=== PATIENT | male | born 1950 ===

== ENCOUNTER → 2020-03-20 14:07 | Outpatient (BNVA) | payer MEDICARE, MEDICAID, SELFPAY | PROVIDERS: PCP Internal Medicine; Visit Provider Hospitalist | DX: J44.9 Chronic obstructive pulmonary disease, unspecified (principal); G47.33 Obstructive sleep apnea (adult) (pediatric); R09.02 Hypoxemia; D68.61 Antiphospholipid syndrome; Z99.89 Dependence on other enabling machines and devices | CPT/HCPCS: 99212 ==

== ENCOUNTER → 2020-03-30 15:08 | Outpatient (BNVA) | payer MEDICARE, MEDICAID, SELFPAY | PROVIDERS: PCP Internal Medicine; Visit Provider Hospitalist | DX: J44.9 Chronic obstructive pulmonary disease, unspecified (principal); G47.33 Obstructive sleep apnea (adult) (pediatric); D68.61 Antiphospholipid syndrome; J96.10 Chronic respiratory failure, unspecified whether with hypoxia or hypercapnia; Z99.89 Dependence on other enabling machines and devices | CPT/HCPCS: 99212 ==

== ENCOUNTER → 2020-06-02 15:20 | Outpatient (BNVA) | payer MEDICARE, MEDICAID, SELFPAY | PROVIDERS: PCP Internal Medicine; Visit Provider Hospitalist | DX: J44.9 Chronic obstructive pulmonary disease, unspecified (principal); J96.11 Chronic respiratory failure with hypoxia; D68.61 Antiphospholipid syndrome; G47.33 Obstructive sleep apnea (adult) (pediatric); Z99.89 Dependence on other enabling machines and devices; Z79.899 Other long term (current) drug therapy | CPT/HCPCS: 99212 ==

== ENCOUNTER → 2020-12-08 15:02 | Outpatient (BNVA) | payer MEDICARE, OTHER, SELFPAY | PROVIDERS: PCP Internal Medicine; Visit Provider Hospitalist | DX: J96.11 Chronic respiratory failure with hypoxia (principal); J41.0 Simple chronic bronchitis; G47.33 Obstructive sleep apnea (adult) (pediatric); D68.61 Antiphospholipid syndrome; Z99.89 Dependence on other enabling machines and devices | CPT/HCPCS: 99212 ==

== ENCOUNTER → 2021-05-20 13:30 | Outpatient (BNVA) | payer MEDICARE, MEDICAID, SELFPAY | PROVIDERS: PCP Internal Medicine; Visit Provider Hospitalist | DX: J96.11 Chronic respiratory failure with hypoxia (principal); D68.61 Antiphospholipid syndrome; G47.33 Obstructive sleep apnea (adult) (pediatric); J41.0 Simple chronic bronchitis; J01.90 Acute sinusitis, unspecified; Z99.89 Dependence on other enabling machines and devices | CPT/HCPCS: 99212 ==

== ENCOUNTER 2021-12-09 12:26 | Outpatient (REF) | payer OTHER, SELFPAY ==
--- NOTE | 2021-12-09 | PFT_ITS ---
FLOWS: FEV1 66% of predicted at 2.30 L. FVC 74% of predicted at 3.31 L. FEV1 to FVC ratio of 0.70. No bronchodilator response. LUNG VOLUMES: Total lung capacity 77% of predicted at 5.57 L. Residual volume 81% of predicted at 2.08 L. Slow vital capacity 74% of predicted at 3.19 L. Expiratory reserve volume 46% of predicted at 0.62 L. Diffusion capacity is moderately decreased. IMPRESSION: Moderate obstructive ventilatory defect with no bronchodilator response combined with moderate restrictive ventilatory defect. Decreased expiratory reserve volume suggests extrathoracic restriction. Decreased diffusion capacity suggests emphysema. MD KATIANA Aguilar/MODL / [id number]
== END 2021-12-09 12:27 | disposition home or self-care (01) ==
LOC: HO.RESP 12:26
PROVIDERS: PCP Internal Medicine; Visit Provider Hospitalist
DX: J44.9 Chronic obstructive pulmonary disease, unspecified (principal); Z79.899 Other long term (current) drug therapy; Z87.891 Personal history of nicotine dependence
CPT/HCPCS: 94060; 94727; 94729

== ENCOUNTER → 2021-12-28 14:17 | Outpatient (BNVA) | payer OTHER, SELFPAY | PROVIDERS: PCP Internal Medicine; Visit Provider Hospitalist | DX: J96.11 Chronic respiratory failure with hypoxia (principal); G47.33 Obstructive sleep apnea (adult) (pediatric); D68.61 Antiphospholipid syndrome; J41.0 Simple chronic bronchitis; J98.4 Other disorders of lung; Z99.89 Dependence on other enabling machines and devices | CPT/HCPCS: 99212 ==

== ENCOUNTER 2023-01-06 12:53 | Outpatient (AMB) | payer OTHER, SELFPAY ==
[2023-01-06 13:06] VITALS: BP 120/62; PULSE 63; O2SAT 96; BMI 36.5
--- NOTE | 2023-01-06 13:06 | MHC.OFFVIS ---
Intake Vital Signs 01/06/23 13:06 Height 5 ft 11 in Weight 262 lb BMI 36.5 BP 120/62 Blood Pressure Location Lt brachial Position Sitting Pulse 63 Pulse Source Pulse Oximeter Pulse Oximetry (%) 96 Oxygen Delivery Method Room Air Intake Visit Reasons: COPD Intake Note: pt is here for follow up and states he is feeling regular. please see Dr. Green note, they would like your opinion on his recommendation. Pt had flu and covid vaccines 12/14/22. Silver Solution Mixer Required: No Allergies fluticasone furoate [From Trelegy Ellipta] Allergy (Intermediate, Verified 01/06/23 13:39) Eye Swelling umeclidinium [From Trelegy Ellipta] Allergy (Intermediate, Verified 01/06/23 13:39) Eye Swelling vilanterol [From Trelegy Ellipta] Allergy (Intermediate, Verified 01/06/23 13:39) Eye Swelling Pravastatin Allergy (Severe, Uncoded 01/06/23 13:09) Anemia HPI HPI Comments History of Present Illness Details The patient is a 72-year-old gentleman known COPD, obstructive sleep apnea on CPAP in addition to antiphospholipid syndrome on chronic anticoagulation. Overall the patient has been doing very well he is responding well to the Anoro medication. Unfortunately, he does have a history of glaucoma but he did have laser surgery in his pressures have been stable. He seems to be tolerating the Anoro without any side effects or changes in his vision. At this point he is using the medication every other day and he understands that if he develops any visual changes he needs to stop the medication. He also should get I examinations every 6 months. If however he is concerned he can always stop the medication. At this point he rather standing medications is working for him. The CPAP therapy has been affecting beneficial. He does uses CPAP every night for more than 4 hours a night. He does get supplies directly from [employer]. He denies any issues with the mask or any supply issues. The patient is without any other complaints. 03/20/2020 the patient is here for sick visit. Apparently he has been having worsening shortness of breath. He is also said other constitutional symptoms including dizziness and headaches. He has had elevated blood pressures. He did go to [facility] with elevated blood pressure and his ongoing symptoms of shortness of breath. He also was evaluated by his primary care doctor. However, he continues to have significant shortness of breath and he became very concerned. Therefore he made an appointment with Pulmonary. 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 He states that his Coumadin levels have been okay. He has also continue on his Anoro inhaler on a daily basis. Has not gotten any benefit from using his short-acting beta agonist. In the office we did have him go for 6 minutes walk test and the patient quickly desaturated below 87%. Patient was initially placed on 2 L and then had to be be increased to 3 L with improvement of his oxygenation. At this point the patient has acute onset respiratory failure of unclear etiology. He was tested for COVID-19 while at [facility]. Would be unreasonable to check his antibodies. In regards of his CPAP therapy the therapy continues to be affecting beneficial. He continues uses for more than 4 hours a night. 03/30/2020 the patient is here for pulmonary follow-up visit. Overall he is doing better on the oxygen. His hemoglobin also has improved up to 14 which is been reassuring. The oxygen has been very helpful for him. He has been less short of breath. I did call the [employer] in order for him to have a conserving device trial hopefully can get a oyster grader tank in addition to that he has been using his CPAP at nighttime. The CPAP therapy continues to be affecting beneficial. It will be beneficial for him to have an overnight oximetry and room air to see if he needs oxygen at nighttime as well. He continues on the Coumadin is therapeutic. Again the CT scan of the chest did not demonstrate any evidence of any thromboembolic disease although he had extensive emphysema likely contributing to a lot of his symptoms. At this point we will increase his respiratory regimen by adding inhaled cortical steroid to his Anoro with hopes to maximize his respiratory capacity. He still completing a prednisone taper. 06/02/2020 the patient is here for pulmonary follow-up visit. Overall the patient has been doing a lot better. He is hemoglobin has been stable. His respiratory status also has been stable. Has been using the oxygen with very good effect. He does use it as prescribed. He has not gotten the conserving device as of yet. I will get submit the prescription to [employer], his [employer] company, in order for him to get the smaller gas oxygen today with a conserving valve noted for him to have more oxygen available to once he has had a home. Meantime his wound of his lower extremities has improved. He is using compression boots prescribed through wound care with very good effect. The patient has been using the CPAP at nighttime. The CPAP therapy has been affecting beneficial. He is does use it with room air which she is effective for him. Otherwise the patient has no other new issues. He is doing continue doing what he is doing. He has been on the Anoro. Did stop the Arnuity because was causing some redness of the eyes to therefore likely having some type of adverse reaction to it. At this point based on his exam he does not need the inhaled corticosteroid use she also reassuring. 12/08/2020 the patient is here for a pulmonary follow-up visit. Overall he continues to do very well. He continues to use the oxygen with activity with good effect. In addition to that he is using his CPAP at nighttime. The CPAP therapy has been affecting beneficial. He has been getting his supplies regularly. He continues on the Anoro. He is no longer taking inhaled steroid and does not appear to needed. He continues on the Coumadin. He does have antiphospholipid syndrome. He does have pulmonary nodules noted on his last CT scan that he had back in March 2020. He was a big smoker and quit about 3 years ago. The patient is currently scheduled to have a CT scan through the lung cancer screening program in March 2021. At this point the patient is doing well therefore will follow-up in a year's time. I which time he will have pulmonary function studies. 05/20/2021 the patient is here for a pulmonary follow-up visit. He is here with his . She is stating that he is still snoring significantly on the CPAP. He is wearing a nasal mask. She did getting him a chin strap that was not helpful. I explained to them that he needs to go back to full face mask to get the best effect. I did have an F 30 medium available and he did try it and seemed to be comfortable for him therefore he will continue using it. We will continue the current CPAP pressures. In the meantime the patient continues on Coumadin for his antiphospholipid syndrome. He has been having significant sinus congestion and postnasal drip as well as a sore throat. It is likely a component of sinusitis. I will treat him with some antibiotics to try to help his overall upper respiratory obstruction. It is likely that this obstruction is resulting worsening shortness of breath. He continues to use the oxygen. He is upset with the [employer] company because they have been delivering consistently. I will request to see if they can provide him with a filling station since he is using the small B-cylinders with a conserving device valve. 12/28/2021 the patient is here for pulmonary follow-up visit. Overall he continues to do well. He has been using his CPAP. The CPAP therapy has been affecting beneficial. He is using it every night. The current mask setting and set up is working a lot better for him. He is not using any oxygen while on the CPAP. Although, complains of nasal congestion, moderate in severity with post nasal drip. The nasal spray and allergy medicine are partially helpful. He does continue on the Coumadin. He is doing well with that. He does have a history of antiphospholipid syndrome needs to be on the Coumadin lifelong. In addition to that he is using his oxygen with activity. We did look at his pulmonary function studies in his diffusing capacity is up to 45% predicted suggesting that the patient does not need to use the oxygen when he is resting. Therefore he can always said off and then use it with activity. He is getting his oxygen now through [facility]. otherwise his pulmonary function studies demonstrate moderate COPD and mild restriction. He is walking regularly and is already lost weight at this point he is going to continue with current respiratory therapy. We have no plans of any changes at this time. Will have him follow-up in a year's time or sooner if any issues arise. 01/06/2023 the patient is here for a pulmonary follow-up visit. The patient has been nervous about a growing nodule that he has in his left lower lobe. The nodule was described as spiculated been increasing in size compared to the previous 1. Therefore he is concerned. However, the patient is already on oxygen supplementation in addition to that he has a history of thromboembolic disease with antiphospholipid syndrome. The patient has been on anticoagulation for a significant part of his life. Therefore, it is difficult to know how much she will tolerate as far as surgical resection. The patient did a have pulmonary function studies done at [facility] and I will request those results. The patient is concerned about the findings. He is also concern for any aggressive interventions. He is talking closely throughout thoracic surgeon. My recommendation is to consider a PET scan based on the fact that the nodules measuring 8 mm in size and based on his comorbidities and make give was helpful information to move forward. I have a discussion with the thoracic surgeon to see if he is agreeable to that otherwise will discuss further alternative options. [facility] Medical History (Updated 01/09/23 @ 08:14 by Vern Hammond MD) Pulmonary nodule Chronic restrictive lung disease Chronic respiratory failure Anti-phospholipid antibody syndrome Hypoxia RUFUS on CPAP COPD (chronic obstructive pulmonary disease) Social History (Reviewed 01/06/23 @ 13:13 by Isamar Rosario [facility]) Patient Tobacco Use Status: Former Tobacco user Tobacco use type: Cigarette Years Smoked: 14 years old Review of Systems Const Denies night sweats and Denies snoring ENT Denies change in voice, Denies lip swelling, Denies mouth pain, Reports nasal congestion, Denies nasal discharge, Denies sinus pressure, Denies sore throat and Denies tongue swelling Card Denies chest pain and Reports dyspnea on exertion Resp Reports cough, Reports dyspnea on exertion and Denies snoring GI Denies abdominal pain Musc Denies no additional complaints Neuro Denies Neuro-related abnormal movements Psych Denies no additional complaints Skyler/Lymph Denies easy bleeding and Denies lymphadenopathy Aller/Immun Denies lip swelling and Denies tongue swelling Physical Exam Vital Signs: Last Vital Signs Pulse 63 01/06/23 13:06 BP 120/62 01/06/23 13:06 Pulse Ox 96 01/06/23 13:06 Oxygen Delivery Method Room Air 01/06/23 13:06 BMI result Body Mass Index 36.5 Const General: alert HEENT General nose exam: Nasal discharge present Mouth: moist mucous membranes Throat: Yes posterior oropharynx abnormal ( Erythema without any thrush or exudate) Neck Neck: Yes normal visual inspection, Yes full ROM and Yes no lymphadenopathy Chest Chest palpation & inspection: normal inspection of the chest Resp Auscultation: no rales, no rhonchi, no wheezes and diminished lung sounds Cardio Rate: regular rate and tachycardic Rhythm: regular rhythm Heart sounds: S1 normal heart sound present and S2 normal heart sound present GI Palpation (GI): Soft to palpation and nontender Auscultation: normal bowel sounds General: Yes no CVA tenderness Back/Spine/Pelvis Back: no CVA tenderness Skin General skin exam: rashes and/or lesions noted Results Reviewed Results Reviewed: personally reviewed CT chest report Assessment & Plan Assessment & Plan (1) Chronic respiratory failure: Comment: Due to extensive emphysema Code(s): J96.10 - Chronic respiratory failure, unspecified whether with hypoxia or hypercapnia Qualifiers: Respiratory failure complication: hypoxia Qualified Code(s): J96.11 - Chronic respiratory failure with hypoxia (2) Anti-phospholipid antibody syndrome: Code(s): D68.61 - Antiphospholipid syndrome (3) RUFUS on CPAP: Code(s): G47.33 - Obstructive sleep apnea (adult) (pediatric); Z99.89 - Dependence on other enabling machines and devices (4) COPD (chronic obstructive pulmonary disease): Code(s): J44.9 - Chronic obstructive pulmonary disease, unspecified Qualifiers: COPD type: chronic bronchitis Chronic bronchitis type: simple Qualified Code(s): J41.0 - Simple chronic bronchitis (5) Chronic restrictive lung disease: Comment: mild Code(s): J98.4 - Other disorders of lung (6) Pulmonary nodule: Comment: 8 mm spiculated nodule, concerning Code(s): R91.1 - Solitary pulmonary nodule Plan PET scan would be helpful to address the nodule, Has a complicated medical history and high risk for surgery continue fluticasone nasal spray start Doxycycline for bronchitis continue Claritin daily Continue APAP with fullface mask, F 30 medium Continue Anoro daily Continue oxygen supplementation. He is using at 2 L pulse with activity.DME is [facility] now continue coumadin for antiphospholipid syndrome Need to review PFTs Follow-up in 6-8 weeks Orders: Orders PET CT fusion skull to thigh Today R91.1 - Solitary pulmonary nodule Medications: New beclomethasone dipropionate 80 mcg/actuation (Qvar RediHaler) 1 inh inhalation BID 30 days 10.6 grams 11RF doxycycline hyclate 100 mg PO BID 10 days 20 caps 0RF Coding Level of Care Code Est Pt Level 5 (22201) Diagnoses Chronic respiratory failure with hypoxia J96.11 Respiratory failure complication: hypoxia Anti-phospholipid antibody syndrome D68.61 RUFUS on CPAP G47.33; Z99.89 Simple chronic bronchitis J41.0 COPD type: chronic bronchitis Chronic bronchitis type: simple Chronic restrictive lung disease J98.4 Pulmonary nodule R91.1 Time Spent (min) 35
== END 2023-01-06 13:42 | disposition home or self-care (01) ==
PROVIDERS: PCP Internal Medicine; Visit Provider Hospitalist
DX: J96.11 Chronic respiratory failure with hypoxia (principal); D68.61 Antiphospholipid syndrome; G47.33 Obstructive sleep apnea (adult) (pediatric); Z99.89 Dependence on other enabling machines and devices; J41.0 Simple chronic bronchitis; J98.4 Other disorders of lung; R91.1 Solitary pulmonary nodule
CPT/HCPCS: 99214

== ENCOUNTER → 2023-01-06 12:53 | Outpatient (BNVA) | payer OTHER, SELFPAY | PROVIDERS: PCP Internal Medicine; Visit Provider Hospitalist | DX: J96.11 Chronic respiratory failure with hypoxia (principal); D68.61 Antiphospholipid syndrome; J41.0 Simple chronic bronchitis; J98.4 Other disorders of lung; R91.1 Solitary pulmonary nodule; G47.33 Obstructive sleep apnea (adult) (pediatric); Z99.89 Dependence on other enabling machines and devices | CPT/HCPCS: 99212 ==

== ENCOUNTER 2023-01-31 10:04 | Outpatient (REF) | payer OTHER, SELFPAY ==
--- NOTE | ~2023-01-31 | PE_ITS ---
EXAMINATION: Fluorine-18 FDG PET/CT Scan CLINICAL INDICATION: Initial treatment management. Recent outside CT scan of the chest done on 10/20/2022 showed interval growth of 8 mm spiculated nodule at superior segment of left lower lobe of the lung. PROCEDURE: 65 minutes following the intravenous administration of 20.3 mCi of fluorine 18 FDG, images from the base of the skull to the mid thighs were obtained using a combined PET/CT scanner with CT scan based attenuation correction. No intravenous contrast was administered. Transverse, coronal, sagittal, and volume reconstruction projections were obtained. The patient's blood glucose as determined by a finger stick, was 184 mg/dl immediately prior to injection. The radiotracer was injected intravenously through the left antecubital superficial vein, without any complications. Total CT exam dose-length product 1318.39 mGy-cm * These CT images were obtained using dose optimization techniques as appropriate, variously including the following: Automated exposure control * Adjustment of mA and/or kV according to patient size (this includes techniques or standardized protocols for targeted exams where dose is matched to indication/reason for exam; i.e. extremities or head) * Use of iterative reconstruction technique COMPARISON: Outside CT scan of the chest done on 10/20/2022. FINDINGS: SUV max REFERENCE: Blood: 4.1 (173/267). Liver: 5.6 (125/267). HEAD AND NECK: No abnormal radiotracer uptake. No large intracranial hemorrhage, acute territorial infarct or significant shift of midline structures. CHEST: Ports and Devices: None Lungs: The index subcentimeter spiculated nodule at superior segment of left lower lobe of the lung abutting the left major fissure is reidentified, shows mild tracer avidity with SUV max of 1.5 (185/267), below that of the adjacent mediastinal blood pool. Extensive emphysematous disease and presumed linear pleural parenchymal scar at the anteromedial aspect of the left upper lobe and hypoventilatory changes at both lung bases are noted. No additional suspicious lung nodule and/or mass is seen on either side. Pleura: No significant pleural effusion. Lymph Nodes: No tracer-avid mediastinal, hilar or internal mammary or axillary lymphadenopathy. Mediastinum: There is no significant pericardial effusion/thickening. Breasts/Chest Wall: No abnormal radiotracer uptake. ABDOMEN/PELVIS: Liver/Biliary System: No focal tracer-avid liver lesion. Multiple radiopaque calculi are present within the gallbladder. No evidence of any acute cholecystitis or biliary obstruction. Pancreas: Normal.No evidence of pancreatic ductal dilatation. Spleen: Nonvisualized, presumably surgically absent. Adrenal Glands: No abnormal radiotracer uptake. Kidneys: No hydronephrosis, hydroureter or renal calculi bilaterally. Bowel: There is no significant bowel dilatation to suggest obstruction. Colonic diverticulosis without any CT features of superimposed acute diverticulitis. Lymph Nodes: No tracer avid retroperitoneal, mesenteric or pelvic and/or groin lymphadenopathy. Pelvic Organs: The urinary bladder is underdistended. No evidence of any pelvic mass or free fluid or free air. MUSCULOSKELETAL: Multiple well-corticated radiopaque densities are present along the inferior aspect of the left axillary recess, may represent calcified loose bodies around the left shoulder. No suspicious focal osseous lesion. VASCULAR: Calcific atherosclerotic disease of the aorta including carotid and coronary arterial calcifications. THE SITE(S) OF MOST INTENSE FDG AVIDITY AND SUV MAX: The index subcentimeter spiculated suspicious nodule with SUV max of 1.5 at superior segment of the left lower lobe of the lung abutting the left major fissure. PET/PET CT fusion skull to thigh IMPRESSION: 1. Previously documented subcentimeter spiculated suspicious solid lung nodule seen at superior segment of the left lower lobe of the lung abutting the left major fissure shows mild tracer avidity with SUV max of 1.5. Given its small size as well as the morphology, the finding is suspicious for malignancy. 2. No additional tracer avid ipsilateral or contralateral lung nodule or tracer avid hilar or mediastinal or supraclavicular or extrathoracic metastases. 3. Likely calcified loose bodies within the inferior recess of the left shoulder and calcific atherosclerotic disease of the aorta and its branches including coronary and carotid artery calcifications.
== END 2023-01-31 10:05 | disposition home or self-care (01) ==
LOC: HO.PET 10:04
PROVIDERS: PCP Internal Medicine; Visit Provider Hospitalist
DX: Z13.89 Encounter for screening for other disorder (principal)

== ENCOUNTER 2023-02-09 10:58 | Outpatient (AMB) | payer OTHER, SELFPAY ==
--- NOTE | 2023-02-09 11:03 | A.OFFVIS_ITS ---
Intake Vital Signs 02/09/23 11:04 Height 5 ft 11 in Weight 264 lb 8.875 oz BMI 36.9 Intake Visit Reasons: petscan follow Intake Note: pt is here to discuss petscan performed on 01/31/23 Allergies fluticasone furoate [From Trelegy Ellipta] Allergy (Intermediate, Verified 02/09/23 11:05) Eye Swelling umeclidinium [From Trelegy Ellipta] Allergy (Intermediate, Verified 02/09/23 11:05) Eye Swelling vilanterol [From Trelegy Ellipta] Allergy (Intermediate, Verified 02/09/23 11:05) Eye Swelling Pravastatin Allergy (Severe, Uncoded 01/06/23 13:09) Anemia HPI HPI Comments History of Present Illness Details The patient is a 73-year-old gentleman known COPD, obstructive sleep apnea on CPAP in addition to antiphospholipid syndrome on chronic anticoagulation. Overall the patient has been doing very well he is responding well to the Anoro medication. Unfortunately, he does have a history of glaucoma but he did have laser surgery in his pressures have been stable. He seems to be tolerating the Anoro without any side effects or changes in his vision. At this point he is using the medication every other day and he understands that if he develops any visual changes he needs to stop the medication. He also should get I examinations every 6 months. If however he is concerned he can always stop the medication. At this point he rather standing medications is working for him. The CPAP therapy has been affecting beneficial. He does uses CPAP every night for more than 4 hours a night. He does get supplies directly from [employer]. He denies any issues with the mask or any supply issues. The patient is without any other complaints. 03/20/2020 the patient is here for sick visit. Apparently he has been having worsening shortness of breath. He is also said other constitutional symptoms including dizziness and headaches. He has had elevated blood pressures. He did go to [facility] with elevated blood pressure and his ongoing symptoms of shortness of breath. He also was evaluated by his primary care doctor. However, he continues to have significant shortness of breath and he became very concerned. Therefore he made an appointment with Pulmonary. 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 He states that his Coumadin levels have been okay. He has also continue on his Anoro inhaler on a daily basis. Has not gotten any benefit from using his short-acting beta agonist. In the office we did have him go for 6 minutes walk test and the patient quickly desaturated below 87%. Patient was initially placed on 2 L and then had to be be increased to 3 L with improvement of his oxygenation. At this point the patient has acute onset respiratory failure of unclear etiology. He was tested for COVID-19 while at [facility]. Would be unreasonable to check his antibodies. In regards of his CPAP therapy the therapy continues to be affecting beneficial. He continues uses for more than 4 hours a night. 05/20/2021 the patient is here for a pulmonary follow-up visit. He is here with his . She is stating that he is still snoring significantly on the CPAP. He is wearing a nasal mask. She did getting him a chin strap that was not helpful. I explained to them that he needs to go back to full face mask to get the best effect. I did have an F 30 medium available and he did try it and seemed to be comfortable for him therefore he will continue using it. We will continue the current CPAP pressures. In the meantime the patient continues on Coumadin for his antiphospholipid syndrome. He has been having significant sinus congestion and postnasal drip as well as a sore throat. It is likely a component of sinusitis. I will treat him with some antibiotics to try to help his overall upper respiratory obstruction. It is likely that this obstruction is resulting worsening shortness of breath. He continues to use the oxygen. He is upset with the [employer] because they have been delivering consistently. I will request to see if they can provide him with a filling station since he is using the small B-cylinders with a conserving device valve. 12/28/2021 the patient is here for pulmonary follow-up visit. Overall he continues to do well. He has been using his CPAP. The CPAP therapy has been affecting beneficial. He is using it every night. The current mask setting and set up is working a lot better for him. He is not using any oxygen while on the CPAP. Although, complains of nasal congestion, moderate in severity with post nasal drip. The nasal spray and allergy medicine are partially helpful. He does continue on the Coumadin. He is doing well with that. He does have a history of antiphospholipid syndrome needs to be on the Coumadin lifelong. In addition to that he is using his oxygen with activity. We did look at his pulmonary function studies in his diffusing capacity is up to 45% predicted suggesting that the patient does not need to use the oxygen when he is resting. Therefore he can always said off and then use it with activity. He is getting his oxygen now through [facility]. otherwise his pulmonary function studies demonstrate moderate COPD and mild restriction. He is walking regularly and is already lost weight at this point he is going to continue with current respiratory therapy. We have no plans of any changes at this time. Will have him follow-up in a year's time or sooner if any issues arise. 01/06/2023 the patient is here for a pul [facility] follow-up visit. The patient has been nervous about a growing nodule that he has in his left lower lobe. The nodule was described as spiculated been increasing in size compared to the previous 1. Therefore he is concerned. However, the patient is already on oxygen supplementation in addition to that he has a history of thromboembolic disease with antiphospholipid syndrome. The patient has been on anticoagulation for a significant part of his life. Therefore, it is difficult to know how much she will tolerate as far as surgical resection. The patient did a have pulmonary function studies done at [facility] and I will request those results. The patient is concerned about the findings. He is also concern for any aggressive interventions. He is talking closely throughout thoracic surgeon. My recommendation is to consider a PET scan based on the fact that the nodules measuring 8 mm in size and based on his comorbidities and make give was helpful information to move forward. I have a discussion with the thoracic surgeon to see if he is agreeable to that otherwise will discuss further alternative options. 02/09/2023 the patient is here for a pul [facility] follow-up visit. The patient overall has been feeling much better. Breathing overall is better. He did complete a course of antibiotics. He continues on his blood thinners. The patient has been using his oxygen with good effect. He has also been using the CPAP at nighttime. The CPAP therapy continues to be affecting beneficial. He does use it for more than 4 hours a night. The patient did undergo a PET scan to follow-up with the 8 mm spiculated nodular density. Although it appears that has not increased in size since his last CT scan in 6 months. Also be FDG activity is down to 1.5. We know this is a small subcentimeter pulmonary nodule sub PET scan does have his limitations although is reassuring to find the nodule to be low in metabolic activity. The patient will be following up with thoracic surgery. Likely will continue surveillance of this nodule. The patient is high risk for any surgical interventions. [facility] Medical History (Updated 01/09/23 @ 08:14 by Vern Hammond MD) Pulmonary nodule Chronic restrictive lung disease Chronic respiratory failure Anti-phospholipid antibody syndrome Hypoxia RUFUS on CPAP COPD (chronic obstructive pulmonary disease) Social History Patient Tobacco Use Status: Former Tobacco user Tobacco use type: Cigarette Years Smoked: 14 years old Review of Systems Const Denies night sweats and Denies snoring ENT Denies change in voice, Denies lip swelling, Denies mouth pain, Reports nasal congestion, Denies nasal discharge, Denies sinus pressure, Denies sore throat and Denies tongue swelling Card Denies chest pain and Reports dyspnea on exertion Resp Reports cough, Reports dyspnea on exertion and Denies snoring GI Denies abdominal pain Musc Denies no additional complaints Neuro Denies Neuro-related abnormal movements Psych Denies no additional complaints Skyler/Lymph Denies easy bleeding and Denies lymphadenopathy Aller/Immun Denies lip swelling and Denies tongue swelling Physical Exam Vital Signs: BMI result Body Mass Index 36.9 Const General: alert HEENT General nose exam: Nasal discharge present Mouth: moist mucous membranes Throat: Yes posterior oropharynx abnormal ( Erythema without any thrush or exudate) Neck Neck: Yes normal visual inspection, Yes full ROM and Yes no lymphadenopathy Chest Chest palpation & inspection: normal inspection of the chest Resp Auscultation: no rales, no rhonchi, no wheezes and diminished lung sounds Cardio Rate: regular rate and tachycardic Rhythm: regular rhythm Heart sounds: S1 normal heart sound present and S2 normal heart sound present GI Palpation (GI): Soft to palpation and nontender Auscultation: normal bowel sounds General: Yes no CVA tenderness Back/Spine/Pelvis Back: no CVA tenderness Skin General skin exam: rashes and/or lesions noted Results Reviewed Results Reviewed: [address] [address] PET Report Signed Patient: Maycol Keen MR#: [id number] : 1950 Acct:[id number] Age/Sex: 72 / M ADM Date: 01/31/23 Loc: HO.PET Attending Dr: Vern Hammond MD Ordering Physician: Vern Hammond MD Date of Service: 01/31/23 Procedure(s): PET CT fusion skull to thigh Accession Number(s): [id number] cc: KIMBER ARIAS MD; Vern Hamomnd MD~ EXAMINATION: Fluorine-18 FDG PET/CT Scan CLINICAL INDICATION: Initial treatment management. Recent outside CT scan of the chest done on 10/20/2022 showed interval growth of 8 mm spiculated nodule at superior segment of left lower lobe of the lung. PROCEDURE: 65 minutes following the intravenous administration of 20.3 mCi of fluorine 18 FDG, images from the base of the skull to the mid thighs were obtained using a combined PET/CT scanner with CT scan based attenuation correction. No intravenous contrast was administered. Transverse, coronal, sagittal, and volume reconstruction projections were obtained. The patient's blood glucose as determined by a finger stick, was 184 mg/dl immediately prior to injection. The radiotracer was injected intravenously through the left antecubital superficial vein, without any complications. Total CT exam dose-length product 1318.39 mGy-cm * These CT images were obtained using dose optimization techniques as appropriate, variously including the following: Automated exposure control * Adjustment of mA and/or kV according to patient size (this includes techniques or standardized protocols for targeted exams where dose is matched to indication/reason for exam; i.e. extremities or head) * Use of iterative reconstruction technique COMPARISON: Outside CT scan of the chest done on 10/20/2022. FINDINGS: SUV max REFERENCE: Blood: 4.1 (173/267). Liver: 5.6 (125/267). HEAD AND NECK: No abnormal radiotracer uptake. No large intracranial hemorrhage, acute territorial infarct or significant shift of midline structures. CHEST: Ports and Devices: None Lungs: The index subcentimeter spiculated nodule at superior segment of left lower lobe of the lung abutting the left major fissure is reidentified, shows mild tracer avidity with SUV max of 1.5 (185/267), below that of the adjacent mediastinal blood pool. Extensive emphysematous disease and presumed linear pleural parenchymal scar at the anteromedial aspect of the left upper lobe and hypoventilatory changes at both lung bases are noted. No additional suspicious lung nodule and/or mass is seen on either side. Pleura: No significant pleural effusion. Lymph Nodes: No tracer-avid mediastinal, hilar or internal mammary or axillary lymphadenopathy. Mediastinum: There is no significant pericardial effusion/thickening. Breasts/Chest Wall: No abnormal radiotracer uptake. ABDOMEN/PELVIS: Liver/Biliary System: No focal tracer-avid liver lesion. Multiple radiopaque calculi are present within the gallbladder. No evidence of any acute cholecystitis or biliary obstruction. Pancreas: Normal.No evidence of pancreatic ductal dilatation. Spleen: Nonvisualized, presumably surgically absent. Adrenal Glands: No abnormal radiotracer uptake. Kidneys: No hydronephrosis, hydroureter or renal calculi bilaterally. Bowel: There is no significant bowel dilatation to suggest obstruction. Colonic diverticulosis without any CT features of superimposed acute diverticulitis. Lymph Nodes: No tracer avid retroperitoneal, mesenteric or pelvic and/or groin lymphadenopathy. Pelvic Organs: The urinary bladder is underdistended. No evidence of any pelvic mass or free fluid or free air. MUSCULOSKELETAL: Multiple well-corticated radiopaque densities are present along the inferior aspect of the left axillary recess, may represent calcified loose bodies around the left shoulder. No suspicious focal osseous lesion. VASCULAR: Calcific atherosclerotic disease of the aorta including carotid and coronary arterial calcifications. THE SITE(S) OF MOST INTENSE FDG AVIDITY AND SUV MAX: The index subcentimeter spiculated suspicious nodule with SUV max of 1.5 at superior segment of the left lower lobe of the lung abutting the left major fissure. PET/PET CT fusion skull to thigh IMPRESSION: 1. Previously documented subcentimeter spiculated suspicious solid lung nodule seen at superior segment of the left lower lobe of the lung abutting the left major fissure shows mild tracer avidity with SUV max of 1.5. Given its small size as well as the morphology, the finding is suspicious for malignancy. 2. No additional tracer avid ipsilateral or contralateral lung nodule or tracer avid hilar or mediastinal or supraclavicular or extrathoracic metastases. 3. Likely calcified loose bodies within the inferior recess of the left shoulder and calcific atherosclerotic disease of the aorta and its branches including coronary and carotid artery calcifications. Dictated By: Brigitte Erickson MD Signed By: <Electronically signed by Brigitte Erickson MD in OV> 02/08/23 1432 DD/ 1245 TD/TT: Professional Skateboarder: CHRISTINA Assessment & Plan Assessment & Plan (1) Chronic respiratory failure: Comment: Due to extensive emphysema Code(s): J96.10 - Chronic respiratory failure, unspecified whether with hypoxia or hypercapnia Qualifiers: Respiratory failure complication: hypoxia Qualified Code(s): J96.11 - Chronic respiratory failure with hypoxia (2) Anti-phospholipid antibody syndrome: Code(s): D68.61 - Antiphospholipid syndrome (3) RUFUS on CPAP: Code(s): G47.33 - Obstructive sleep apnea (adult) (pediatric); Z99.89 - Dependence on other enabling machines and devices (4) COPD (chronic obstructive pulmonary disease): Code(s): J44.9 - Chronic obstructive pulmonary disease, unspecified Qualifiers: COPD type: chronic bronchitis Chronic bronchitis type: simple Qualified Code(s): J41.0 - Simple chronic bronchitis (5) Chronic restrictive lung disease: Comment: mild Code(s): J98.4 - Other disorders of lung (6) Pulmonary nodule: Comment: 8 mm spiculated nodule, concerning Code(s): R91.1 - Solitary pulmonary nodule Plan PET demonstrating only mild FDG, would recommend continued surveillance Will follow up with Thoracic surgery in 1-2 weeks continue fluticasone nasal spray continue Claritin daily Continue APAP with fullface mask, F 30 medium Continue Anoro daily Continue oxygen supplementation. He is using at 2 L pulse with activity.DME is [facility] now continue coumadin for antiphospholipid syndrome Follow-up in 6-8 months Coding Level of Care Code Est Pt Level 4 (54261) Diagnoses Chronic respiratory failure with hypoxia J96.11 Respiratory failure complication: hypoxia Anti-phospholipid antibody syndrome D68.61 RUFUS on CPAP G47.33; Z99.89 Simple chronic bronchitis J41.0 COPD type: chronic bronchitis Chronic bronchitis type: simple Chronic restrictive lung disease J98.4 Pulmonary nodule R91.1 Time Spent (min) 17
[2023-02-09 11:04] VITALS: BMI 36.9
== END 2023-02-09 11:19 | disposition home or self-care (01) ==
PROVIDERS: PCP Internal Medicine; Visit Provider Hospitalist
DX: J96.11 Chronic respiratory failure with hypoxia (principal); D68.61 Antiphospholipid syndrome; G47.33 Obstructive sleep apnea (adult) (pediatric); Z99.89 Dependence on other enabling machines and devices; J41.0 Simple chronic bronchitis; J98.4 Other disorders of lung; R91.1 Solitary pulmonary nodule
CPT/HCPCS: 99214

== ENCOUNTER → 2023-02-09 11:00 | Outpatient (BNVA) | payer OTHER, SELFPAY | PROVIDERS: PCP Internal Medicine; Visit Provider Hospitalist | DX: J41.0 Simple chronic bronchitis (principal); J96.11 Chronic respiratory failure with hypoxia; J98.4 Other disorders of lung; R91.1 Solitary pulmonary nodule; G47.33 Obstructive sleep apnea (adult) (pediatric); D68.61 Antiphospholipid syndrome; Z87.891 Personal history of nicotine dependence; Z79.01 Long term (current) use of anticoagulants; Z99.89 Dependence on other enabling machines and devices; Z99.81 Dependence on supplemental oxygen | CPT/HCPCS: 99212 ==

== ENCOUNTER 2023-09-27 11:01 | Outpatient (AMB) | payer OTHER, SELFPAY ==
--- NOTE | 2023-09-27 11:15 | MHC.OFFVIS ---
Vital Signs 09/27/23 11:18 Height 5 ft 11 in Weight 264 lb BMI 36.8 Pulse 60 Pulse Source Pulse Oximeter Pulse Oximetry (%) 96 Oxygen Delivery Method Room Air Comment 2 Liters Oxygen([facility]) Intake Visit Reasons: copd : 7 month f/u [place] [employer] Required: No Allergies fluticasone furoate [From Trelegy Ellipta] Allergy (Intermediate, Verified 09/27/23 11:20) Eye Swelling umeclidinium [From Trelegy Ellipta] Allergy (Intermediate, Verified 09/27/23 11:20) Eye Swelling vilanterol [From Trelegy Ellipta] Allergy (Intermediate, Verified 09/27/23 11:20) Eye Swelling Pravastatin Allergy (Severe, Uncoded 09/27/23 11:20) Anemia HPI Comments Details: The patient is a 73-year-old gentleman known COPD, obstructive sleep apnea on CPAP in addition to antiphospholipid syndrome on chronic anticoagulation. Overall the patient has been doing very well he is responding well to the Anoro medication. Unfortunately, he does have a history of glaucoma but he did have laser surgery in his pressures have been stable. He seems to be tolerating the Anoro without any side effects or changes in his vision. At this point he is using the medication every other day and he understands that if he develops any visual changes he needs to stop the medication. He also should get I examinations every 6 months. If however he is concerned he can always stop the medication. At this point he rather standing medications is working for him. The CPAP therapy has been affecting beneficial. He does uses CPAP every night for more than 4 hours a night. He does get supplies directly from [employer]. He denies any issues with the mask or any supply issues. The patient is without any other complaints. 03/20/2020 the patient is here for sick visit. Apparently he has been having worsening shortness of breath. He is also said other constitutional symptoms including dizziness and headaches. He has had elevated blood pressures. He did go to [facility] with elevated blood pressure and his ongoing symptoms of shortness of breath. He also was evaluated by his primary care doctor. However, he continues to have significant shortness of breath and he became very concerned. Therefore he made an appointment with Pulmonary. 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 He states that his Coumadin levels have been okay. He has also continue on his Anoro inhaler on a daily basis. Has not gotten any benefit from using his short-acting beta agonist. In the office we did have him go for 6 minutes walk test and the patient quickly desaturated below 87%. Patient was initially placed on 2 L and then had to be be increased to 3 L with improvement of his oxygenation. At this point the patient has acute onset respiratory failure of unclear etiology. He was tested for COVID-19 while at [facility]. Would be unreasonable to check his antibodies. In regards of his CPAP therapy the therapy continues to be affecting beneficial. He continues uses for more than 4 hours a night. 05/20/2021 the patient is here for a pulmonary follow-up visit. He is here with his . She is stating that he is still snoring significantly on the CPAP. He is wearing a nasal mask. She did getting him a chin strap that was not helpful. I explained to them that he needs to go back to full face mask to get the best effect. I did have an F 30 medium available and he did try it and seemed to be comfortable for him therefore he will continue using it. We will continue the current CPAP pressures. In the meantime the patient continues on Coumadin for his antiphospholipid syndrome. He has been having significant sinus congestion and postnasal drip as well as a sore throat. It is likely a component of sinusitis. I will treat him with some antibiotics to try to help his overall upper respiratory obstruction. It is likely that this obstruction is resulting worsening shortness of breath. He continues to use the oxygen. He is upset with the [employer] company because they have been delivering consistently. I will request to see if they can provide him with a filling station since he is using the small B-cylinders with a conserving device valve. 12/28/2021 the patient is here for pulmonary follow-up visit. Overall he continues to do well. He has been using his CPAP. The CPAP therapy has been affecting beneficial. He is using it every night. The current mask setting and set up is working a lot better for him. He is not using any oxygen while on the CPAP. Although, complains of nasal congestion, moderate in severity with post nasal drip. The nasal spray and allergy medicine are partially helpful. He does continue on the Coumadin. He is doing well with that. He does have a history of antiphospholipid syndrome needs to be on the Coumadin lifelong. In addition to that he is using his oxygen with activity. We did look at his pulmonary function studies in his diffusing capacity is up to 45% predicted suggesting that the patient does not need to use the oxygen when he is resting. Therefore he can always said off and then use it with activity. He is getting his oxygen now through [facility]. otherwise his pulmonary function studies demonstrate moderate COPD and mild restriction. He is walking regularly and is already lost weight at this point he is going to continue with current respiratory therapy. We have no plans of any changes at this time. Will have him follow-up in a year's time or sooner if any issues arise. 01/06/2023 the patient is here for a pulmonary follow-up visit. The patient has been nervous about a growing nodule that he has in his left lower lobe. The nodule was described as spiculated been increasing in size compared to the previous 1. Therefore he is concerned. However, the patient is already on oxygen supplementation in addition to that he has a history of thromboembolic disease with antiphospholipid syndrome. The patient has been on anticoagulation for a significant part of his life. Therefore, it is difficult to know how much she will tolerate as far as surgical resection. The patient did a have pulmonary function studies done at [facility] and I will request those results. The patient is concerned about the findings. He is also concern for any aggressive interventions. He is talking closely throughout thoracic surgeon. My recommendation is to consider a PET scan based on the fact that the nodules measuring 8 mm in size and based on his comorbidities and make give was helpful information to move forward. I have a discussion with the thoracic surgeon to see if he is agreeable to that otherwise will discuss further alternative options. 02/09/2023 the patient is here for a pulmonary follow-up visit. The patient overall has been feeling much better. Breathing overall is better. He did complete a course of antibiotics. He continues on his blood thinners. The patient has been using his oxygen with good effect. He has also been using the CPAP at nighttime. The CPAP therapy continues to be affecting beneficial. He does use it for more than 4 hours a night. The patient did undergo a PET scan to follow-up with the 8 mm spiculated nodular density. Although it appears that has not increased in size since his last CT scan in 6 months. Also be FDG activity is down to 1.5. We know this is a small subcentimeter pulmonary nodule sub PET scan does have his limitations although is reassuring to find the nodule to be low in metabolic activity. The patient will be following up with thoracic surgery. Likely will continue surveillance of this nodule. The patient is high risk for any surgical interventions. 09/27/2023 the patient is here for a pulmonary follow-up visit. The patient overall has been doing well from a respiratory status. He continues use the oxygen with good effect. The patient does have oxygen that he uses continuously throughout the day and also at nighttime. At nighttime he also uses CPAP. CPAP therapy has been affecting beneficial. He does uses CPAP more than 4 hours a night. I will make sure to send a script in order for him to continue getting supplies readily. Patient also continues on the Coumadin for his antiphospholipid syndrome. Has a high risk for developing blood clots. His followed closely by Hematology. He has underlying emphysema. Extensive and amount. Resulting the diffusion impairment in the oxygen needs. The patient also has pulmonary nodules bilaterally. The largest nodule measuring 8 mm in size in the left lower lobe close to the fissure. No clear airway going to this distribution. The nodule did not have any significant PET activity and has not significantly changed in size which is reassuring. In view of the patient is comorbidities I do not encouraged any invasive or semi-invasive diagnostic interventions. Patient should have repeat CT scan in 6-12 months. He will be following up with Interventional Pulmonary and they can discuss further their recommendations. in the meantime the patient will continue with current respiratory therapy and will continue with CPAP at nighttime in the oxygen as prescribed. [facility] Medical History (Updated 01/09/23 @ 08:14 by Vern Hammond MD) Pulmonary nodule Chronic restrictive lung disease Chronic respiratory failure Anti-phospholipid antibody syndrome Hypoxia RUFUS on CPAP COPD (chronic obstructive pulmonary disease) Social History Patient Tobacco Use Status: Former Tobacco user Tobacco use type: Cigarette Years Smoked: 14 years old Review of Systems Const Denies night sweats and Denies snoring ENT Denies change in voice, Denies lip swelling, Denies mouth pain, Reports nasal congestion, Denies nasal discharge, Denies sinus pressure, Denies sore throat and Denies tongue swelling Card Denies chest pain and Reports dyspnea on exertion Resp Reports cough, Reports dyspnea on exertion and Denies snoring GI Denies abdominal pain Musc Denies no additional complaints Neuro Denies Neuro-related abnormal movements Psych Denies no additional complaints Skyler/Lymph Denies easy bleeding and Denies lymphadenopathy Aller/Immun Denies lip swelling and Denies tongue swelling Physical Exam Vital Signs: Last Vital Signs Pulse 60 09/27/23 11:18 Pulse Ox 96 09/27/23 11:18 Oxygen Delivery Method Room Air 09/27/23 11:18 BMI result Body Mass Index 36.8 Const General: alert HEENT General nose exam: Nasal discharge present Mouth: moist mucous membranes Throat: Yes posterior oropharynx abnormal ( Erythema without any thrush or exudate) Neck Neck: Yes normal visual inspection, Yes full ROM and Yes no lymphadenopathy Chest Chest palpation & inspection: normal inspection of the chest Resp Auscultation: no rales, no rhonchi, no wheezes and diminished lung sounds Cardio Rate: regular rate and tachycardic Rhythm: regular rhythm Heart sounds: S1 normal heart sound present and S2 normal heart sound present GI Palpation (GI): Soft to palpation and nontender Auscultation: normal bowel sounds General: Yes no CVA tenderness Back/Spine/Pelvis Back: no CVA tenderness Skin General skin exam: rashes and/or lesions noted Assessment & Plan Assessment & Plan (1) Chronic respiratory failure: Comment: Due to extensive emphysema Code(s): J96.10 - Chronic respiratory failure, unspecified whether with hypoxia or hypercapnia Category: Medical Qualifiers: Respiratory failure complication: hypoxia Qualified Code(s): J96.11 - Chronic respiratory failure with hypoxia (2) Anti-phospholipid antibody syndrome: Code(s): D68.61 - Antiphospholipid syndrome Category: Medical (3) RUFUS on CPAP: Code(s): G47.33 - Obstructive sleep apnea (adult) (pediatric); Z99.89 - Dependence on other enabling machines and devices Category: Medical (4) COPD (chronic obstructive pulmonary disease): Code(s): J44.9 - Chronic obstructive pulmonary disease, unspecified Category: Medical Qualifiers: COPD type: chronic bronchitis Chronic bronchitis type: simple Qualified Code(s): J41.0 - Simple chronic bronchitis (5) Chronic restrictive lung disease: Comment: mild Code(s): J98.4 - Other disorders of lung Category: Medical (6) Pulmonary nodule: Comment: 8 mm spiculated nodule, concerning Code(s): R91.1 - Solitary pulmonary nodule Category: Medical Plan PET demonstrating only mild FDG, and recent CT chest with stable findings. He is high risk any invasive or semi invasive diagnostic interventions. I would recommend continued surveillance with a repeat CT chest in 6-12 months continue fluticasone nasal spray continue Claritin daily Continue APAP with fullface mask, F 30 medium Continue Anoro daily Continue oxygen supplementation. He is using at 2 L pulse with activity.DME is [facility] now continue coumadin for antiphospholipid syndrome Follow-up in 8-12 months Coding Level of Care Code Est Pt Level 4 (78221) Diagnoses Chronic respiratory failure with hypoxia J96.11 Respiratory failure complication: hypoxia Anti-phospholipid antibody syndrome D68.61 RUFUS on CPAP G47.33; Z99.89 Simple chronic bronchitis J41.0 COPD type: chronic bronchitis Chronic bronchitis type: simple Chronic restrictive lung disease J98.4 Pulmonary nodule R91.1 Time Spent (min) 18
[2023-09-27 11:18] VITALS: PULSE 60; O2SAT 96; BMI 36.8
== END 2023-09-27 11:52 | disposition home or self-care (01) ==
PROVIDERS: PCP Internal Medicine; Visit Provider Hospitalist
DX: J96.11 Chronic respiratory failure with hypoxia (principal); D68.61 Antiphospholipid syndrome; G47.33 Obstructive sleep apnea (adult) (pediatric); Z99.89 Dependence on other enabling machines and devices; J41.0 Simple chronic bronchitis; J98.4 Other disorders of lung; R91.1 Solitary pulmonary nodule
CPT/HCPCS: 99214

== ENCOUNTER → 2023-09-27 11:01 | Outpatient (BNVA) | payer OTHER, SELFPAY | PROVIDERS: PCP Internal Medicine; Visit Provider Hospitalist | DX: J44.9 Chronic obstructive pulmonary disease, unspecified (principal); J96.11 Chronic respiratory failure with hypoxia; D68.61 Antiphospholipid syndrome; G47.33 Obstructive sleep apnea (adult) (pediatric); J41.0 Simple chronic bronchitis; J98.4 Other disorders of lung; R91.1 Solitary pulmonary nodule; Z79.01 Long term (current) use of anticoagulants; Z99.89 Dependence on other enabling machines and devices | CPT/HCPCS: 99212 ==

== ENCOUNTER → 2023-12-12 14:42 | Outpatient (REF) | payer OTHER, SELFPAY | LOC: HO.SL 14:42 | PROVIDERS: PCP Internal Medicine; Visit Provider Hospitalist | DX: G47.33 Obstructive sleep apnea (adult) (pediatric) (principal); Z99.89 Dependence on other enabling machines and devices | CPT/HCPCS: 95806 ==

== ENCOUNTER → 2023-12-12 15:02 | Outpatient (BNV) | payer OTHER, SELFPAY | PROVIDERS: PCP Internal Medicine; Visit Provider Internal Medicine | DX: G47.33 Obstructive sleep apnea (adult) (pediatric) (principal) | CPT/HCPCS: 95806 ==

== ENCOUNTER → 2024-01-03 04:09 | Outpatient (BNV) | payer OTHER, SELFPAY | PROVIDERS: PCP Internal Medicine; Visit Provider Internal Medicine | DX: G47.33 Obstructive sleep apnea (adult) (pediatric) (principal); Z99.89 Dependence on other enabling machines and devices | CPT/HCPCS: 95811 ==

== ENCOUNTER → 2024-01-03 20:30 | Outpatient (REF) | payer OTHER, SELFPAY | LOC: HO.SL 20:30 | PROVIDERS: PCP Internal Medicine; Visit Provider Hospitalist | DX: G47.33 Obstructive sleep apnea (adult) (pediatric) (principal); Z99.89 Dependence on other enabling machines and devices | CPT/HCPCS: 95811 ==

== ENCOUNTER 2024-02-01 12:46 | Outpatient (AMB) | payer OTHER, SELFPAY ==
--- NOTE | 2024-02-01 12:54 | MHC.OFFVIS ---
Vital Signs 02/01/24 12:55 Height 5 ft 11 in Weight 250 lb 3.594 oz BMI 34.9 BP 130/64 Blood Pressure Location Lt brachial Position Sitting Pulse 66 Pulse Source Pulse Oximeter Pulse Oximetry (%) 96 Oxygen Delivery Method Nasal Cannula Oxygen Flow Rate 2 Intake Visit Reasons: copd Allergies fluticasone furoate [From Trelegy Ellipta] Allergy (Intermediate, Verified 02/01/24 12:59) Eye Swelling umeclidinium [From Trelegy Ellipta] Allergy (Intermediate, Verified 02/01/24 12:59) Eye Swelling vilanterol [From Trelegy Ellipta] Allergy (Intermediate, Verified 02/01/24 12:59) Eye Swelling Pravastatin Allergy (Severe, Uncoded 02/01/24 12:59) Anemia HPI Comments Details: The patient is a 73-year-old gentleman known COPD, obstructive sleep apnea on CPAP in addition to antiphospholipid syndrome on chronic anticoagulation. Overall the patient has been doing very well he is responding well to the Anoro medication. Unfortunately, he does have a history of glaucoma but he did have laser surgery in his pressures have been stable. He seems to be tolerating the Anoro without any side effects or changes in his vision. At this point he is using the medication every other day and he understands that if he develops any visual changes he needs to stop the medication. He also should get I examinations every 6 months. If however he is concerned he can always stop the medication. At this point he rather standing medications is working for him. The CPAP therapy has been affecting beneficial. He does uses CPAP every night for more than 4 hours a night. He does get supplies directly from [employer]. He denies any issues with the mask or any supply issues. The patient is without any other complaints. 03/20/2020 the patient is here for sick visit. Apparently he has been having worsening shortness of breath. He is also said other constitutional symptoms including dizziness and headaches. He has had elevated blood pressures. He did go to [facility] with elevated blood pressure and his ongoing symptoms of shortness of breath. He also was evaluated by his primary care doctor. However, he continues to have significant shortness of breath and he became very concerned. Therefore he made an appointment with Pulmonary. 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 He states that his Coumadin levels have been okay. He has also continue on his Anoro inhaler on a daily basis. Has not gotten any benefit from using his short-acting beta agonist. In the office we did have him go for 6 minutes walk test and the patient quickly desaturated below 87%. Patient was initially placed on 2 L and then had to be be increased to 3 L with improvement of his oxygenation. At this point the patient has acute onset respiratory failure of unclear etiology. He was tested for COVID-19 while at [facility]. Would be unreasonable to check his antibodies. In regards of his CPAP therapy the therapy continues to be affecting beneficial. He continues uses for more than 4 hours a night. 05/20/2021 the patient is here for a pulmonary follow-up visit. He is here with his . She is stating that he is still snoring significantly on the CPAP. He is wearing a nasal mask. She did getting him a chin strap that was not helpful. I explained to them that he needs to go back to full face mask to get the best effect. I did have an F 30 medium available and he did try it and seemed to be comfortable for him therefore he will continue using it. We will continue the current CPAP pressures. In the meantime the patient continues on Coumadin for his antiphospholipid syndrome. He has been having significant sinus congestion and postnasal drip as well as a sore throat. It is likely a component of sinusitis. I will treat him with some antibiotics to try to help his overall upper respiratory obstruction. It is likely that this obstruction is resulting worsening shortness of breath. He continues to use the oxygen. He is upset with the [employer] company because they have been delivering consistently. I will request to see if they can provide him with a filling station since he is using the small B-cylinders with a conserving device valve. 12/28/2021 the patient is here for pulmonary follow-up visit. Overall he continues to do well. He has been using his CPAP. The CPAP therapy has been affecting beneficial. He is using it every night. The current mask setting and set up is working a lot better for him. He is not using any oxygen while on the CPAP. Although, complains of nasal congestion, moderate in severity with post nasal drip. The nasal spray and allergy medicine are partially helpful. He does continue on the Coumadin. He is doing well with that. He does have a history of antiphospholipid syndrome needs to be on the Coumadin lifelong. In addition to that he is using his oxygen with activity. We did look at his pulmonary function studies in his diffusing capacity is up to 45% predicted suggesting that the patient does not need to use the oxygen when he is resting. Therefore he can always said off and then use it with activity. He is getting his oxygen now through [facility]. otherwise his pulmonary function studies demonstrate moderate COPD and mild restriction. He is walking regularly and is already lost weight at this point he is going to continue with current respiratory therapy. We have no plans of any changes at this time. Will have him follow-up in a year's time or sooner if any issues arise. 01/06/2023 the patient is here for a pulmonary follow-up visit. The patient has been nervous about a growing nodule that he has in his left lower lobe. The nodule was described as spiculated been increasing in size compared to the previous 1. Therefore he is concerned. However, the patient is already on oxygen supplementation in addition to that he has a history of thromboembolic disease with antiphospholipid syndrome. The patient has been on anticoagulation for a significant part of his life. Therefore, it is difficult to know how much she will tolerate as far as surgical resection. The patient did a have pulmonary function studies done at [facility] and I will request those results. The patient is concerned about the findings. He is also concern for any aggressive interventions. He is talking closely throughout thoracic surgeon. My recommendation is to consider a PET scan based on the fact that the nodules measuring 8 mm in size and based on his comorbidities and make give was helpful information to move forward. I have a discussion with the thoracic surgeon to see if he is agreeable to that otherwise will discuss further alternative options. 02/09/2023 the patient is here for a pulmonary follow-up visit. The patient overall has been feeling much better. Breathing overall is better. He did complete a course of antibiotics. He continues on his blood thinners. The patient has been using his oxygen with good effect. He has also been using the CPAP at nighttime. The CPAP therapy continues to be affecting beneficial. He does use it for more than 4 hours a night. The patient did undergo a PET scan to follow-up with the 8 mm spiculated nodular density. Although it appears that has not increased in size since his last CT scan in 6 months. Also be FDG activity is down to 1.5. We know this is a small subcentimeter pulmonary nodule sub PET scan does have his limitations although is reassuring to find the nodule to be low in metabolic activity. The patient will be following up with thoracic surgery. Likely will continue surveillance of this nodule. The patient is high risk for any surgical interventions. 09/27/2023 the patient is here for a pulmonary follow-up visit. The patient overall has been doing well from a respiratory status. He continues use the oxygen with good effect. The patient does have oxygen that he uses continuously throughout the day and also at nighttime. At nighttime he also uses CPAP. CPAP therapy has been affecting beneficial. He does uses CPAP more than 4 hours a night. I will make sure to send a script in order for him to continue getting supplies readily. Patient also continues on the Coumadin for his antiphospholipid syndrome. Has a high risk for developing blood clots. His followed closely by Hematology. He has underlying emphysema. Extensive and amount. Resulting the diffusion impairment in the oxygen needs. The patient also has pulmonary nodules bilaterally. The largest nodule measuring 8 mm in size in the left lower lobe close to the fissure. No clear airway going to this distribution. The nodule did not have any significant PET activity and has not significantly changed in size which is reassuring. In view of the patient is comorbidities I do not encouraged any invasive or semi-invasive diagnostic interventions. Patient should have repeat CT scan in 6-12 months. He will be following up with Interventional Pulmonary and they can discuss further their recommendations. in the meantime the patient will continue with current respiratory therapy and will continue with CPAP at nighttime in the oxygen as prescribed. 02/01/2024 the patient is here for a pulmonary follow-up visit. Overall he is doing okay. He is recovering from COVID-19. Seems to be doing better. The patient did undergo a sleep study. I did personally review it although was a limited study because he could not sleep well. Seems that he does need additional CPAP support so therefore we will request a replacement machine with the higher pressure at this time 12-18 cm of water. The patient does not need any oxygen with it. He does use oxygen during the daytime that is good. In the meantime will following closely the left-sided pulmonary nodule measuring about 8 mm in size. The last CT scan from 09/30/2023 that Lena demonstrating no significant changes. Therefore, we should repeat it in 6 months. He does not want any aggressive interventions at this time. Therefore will hold off on any interventional pulmonary procedures and which is continue to follow the nodule in 04/01/2024. The patient also will need to get a replacement CPAP. Will send a prescription over to his [employer] company that is been very helpful for him. The CPAP therapy has been very affecting beneficial for him. Therefore he needs to continue it will needs a replacement because machine now is noting that the motor is not working appropriately. Patient will follow-up in the end of March to follow up with his CT scan and to see how he is responding to the new CPAP. he is also having symptoms sinusitis. Will go ahead and treat that as well. Sinus pressure cough chest congestion. Lungs sound clear. [facility] Medical History (Updated 01/09/23 @ 08:14 by Vern Hammond MD) Pulmonary nodule Chronic restrictive lung disease Chronic respiratory failure Anti-phospholipid antibody syndrome Hypoxia RUFUS on CPAP COPD (chronic obstructive pulmonary disease) Social History Patient Tobacco Use Status: Former Tobacco user Tobacco use type: Cigarette Years Smoked: 14 years old Review of Systems Const Denies night sweats and Denies snoring ENT Denies change in voice, Denies lip swelling, Denies mouth pain, Reports nasal congestion, Reports nasal discharge, Reports sinus pain, Reports sinus pressure, Denies sore throat and Denies tongue swelling Card Denies chest pain and Reports dyspnea on exertion Resp Reports chest congestion, Reports cough, Reports dyspnea on exertion and Denies snoring GI Denies abdominal pain Musc Denies no additional complaints Neuro Denies Neuro-related abnormal movements Psych Denies no additional complaints Skyler/Lymph Denies easy bleeding and Denies lymphadenopathy Aller/Immun Denies lip swelling and Denies tongue swelling Physical Exam Vital Signs: Last Vital Signs Pulse 66 02/01/24 12:55 BP 130/64 02/01/24 12:55 Pulse Ox 96 02/01/24 12:55 Oxygen Delivery Method Nasal Cannula 02/01/24 12:55 Oxygen Flow Rate 2 02/01/24 12:55 BMI result Body Mass Index 34.9 Const General: alert HEENT General nose exam: Nasal discharge present Mouth: moist mucous membranes Throat: Yes posterior oropharynx abnormal ( Erythema without any thrush or exudate) Neck Neck: Yes normal visual inspection, Yes full ROM and Yes no lymphadenopathy Chest Chest palpation & inspection: normal inspection of the chest Resp Auscultation: no rales, no rhonchi, no wheezes and diminished lung sounds Cardio Rate: regular rate and tachycardic Rhythm: regular rhythm Heart sounds: S1 normal heart sound present and S2 normal heart sound present GI Palpation (GI): Soft to palpation and nontender Auscultation: normal bowel sounds General: Yes no CVA tenderness Back/Spine/Pelvis Back: no CVA tenderness Skin General skin exam: rashes and/or lesions noted Assessment & Plan Assessment & Plan (1) Chronic respiratory failure: Comment: Due to extensive emphysema Code(s): J96.10 - Chronic respiratory failure, unspecified whether with hypoxia or hypercapnia Category: Medical Qualifiers: Respiratory failure complication: hypoxia Qualified Code(s): J96.11 - Chronic respiratory failure with hypoxia (2) Anti-phospholipid antibody syndrome: Code(s): D68.61 - Antiphospholipid syndrome Category: Medical (3) RUFUS on CPAP: Code(s): G47.33 - Obstructive sleep apnea (adult) (pediatric); Z99.89 - Dependence on other enabling machines and devices Category: Medical (4) COPD (chronic obstructive pulmonary disease): Code(s): J44.9 - Chronic obstructive pulmonary disease, unspecified Category: Medical Qualifiers: COPD type: chronic bronchitis Chronic bronchitis type: simple Qualified Code(s): J41.0 - Simple chronic bronchitis (5) Chronic restrictive lung disease: Comment: mild Code(s): J98.4 - Other disorders of lung Category: Medical (6) Pulmonary nodule: Comment: 8 mm spiculated nodule, concerning Code(s): R91.1 - Solitary pulmonary nodule Category: Medical (7) Sinusitis: Code(s): J32.9 - Chronic sinusitis, unspecified Category: Medical Qualifiers: Sinusitis location: unspecified location Chronicity: subacute Qualified Code(s): J01.90 - Acute sinusitis, unspecified Plan CT chest 03/2024 continue fluticasone nasal spray continue Claritin daily Continue APAP with fullface mask, F 30 medium. Needs a replacement APAP, current APAP broken beyond repeair. Titration study recommended cpap 14cm RA Continue Anoro daily Continue oxygen supplementation. He is using at 2 L pulse with activity.DME is [facility] now continue coumadin for antiphospholipid syndrome Follow-up in 3-4 months Orders: Orders CT chest wo IV con 03/25/24 R91.1 - Solitary pulmonary nodule Medications: New doxycycline monohydrate 100 mg PO BID 28 tabs 0RF 14 days oxymetazoline 0.05% (Afrin (oxymetazoline)) 2 sprays intranasal Q12H PRN 22 mL 0RF nasal congestion 5 days Coding Level of Care Code Est Pt Level 4 (80759) Complex EM visit Add On G2211 Diagnoses Chronic respiratory failure with hypoxia J96.11 Respiratory failure complication: hypoxia Anti-phospholipid antibody syndrome D68.61 RUFUS on CPAP G47.33; Z99.89 Simple chronic bronchitis J41.0 COPD type: chronic bronchitis Chronic bronchitis type: simple Chronic restrictive lung disease J98.4 Pulmonary nodule R91.1 Subacute sinusitis, unspecified location J01.90 Sinusitis location: unspecified location Chronicity: subacute Time Spent (min) 18
[2024-02-01 12:55] VITALS: BP 130/64; PULSE 66; O2SAT 96; BMI 34.9
== END 2024-02-01 13:25 | disposition home or self-care (01) ==
PROVIDERS: PCP Internal Medicine; Visit Provider Hospitalist
DX: J96.11 Chronic respiratory failure with hypoxia (principal); D68.61 Antiphospholipid syndrome; G47.33 Obstructive sleep apnea (adult) (pediatric); Z99.89 Dependence on other enabling machines and devices; J41.0 Simple chronic bronchitis; J98.4 Other disorders of lung; R91.1 Solitary pulmonary nodule; J01.90 Acute sinusitis, unspecified
CPT/HCPCS: 99214; G2211

== ENCOUNTER → 2024-02-01 12:46 | Outpatient (BNVA) | payer OTHER, SELFPAY | PROVIDERS: PCP Internal Medicine; Visit Provider Hospitalist | DX: J96.11 Chronic respiratory failure with hypoxia (principal); J41.0 Simple chronic bronchitis; J98.4 Other disorders of lung; D68.61 Antiphospholipid syndrome; G47.33 Obstructive sleep apnea (adult) (pediatric); R91.1 Solitary pulmonary nodule; Z99.89 Dependence on other enabling machines and devices | CPT/HCPCS: 99212 ==

== ENCOUNTER 2024-04-09 13:20 | Outpatient (AMB) | payer OTHER, SELFPAY ==
--- NOTE | 2024-04-09 13:45 | A.OFFVIS_ITS ---
Vital Signs 04/09/24 13:46 Height 5 ft 11 in Weight 260 lb 2.327 oz BMI 36.3 BP 134/80 Blood Pressure Location Rt brachial Position Sitting Pulse 85 Pulse Source Pulse Oximeter Pulse Oximetry (%) 90 L Oxygen Delivery Method Nasal Cannula Oxygen Flow Rate 2 Intake Visit Reasons: COPD Allergies fluticasone furoate [From Trelegy Ellipta] Allergy (Intermediate, Verified 02/01/24 12:59) Eye Swelling umeclidinium [From Trelegy Ellipta] Allergy (Intermediate, Verified 02/01/24 12:59) Eye Swelling vilanterol [From Trelegy Ellipta] Allergy (Intermediate, Verified 02/01/24 12:59) Eye Swelling Pravastatin Allergy (Severe, Uncoded 02/01/24 12:59) Anemia HPI Comments Details: The patient is a 74-year-old gentleman known COPD, obstructive sleep apnea on CPAP in addition to antiphospholipid syndrome on chronic anticoagulation. Overall the patient has been doing very well he is responding well to the Anoro medication. Unfortunately, he does have a history of glaucoma but he did have laser surgery in his pressures have been stable. He seems to be tolerating the Anoro without any side effects or changes in his vision. At this point he is using the medication every other day and he understands that if he develops any visual changes he needs to stop the medication. He also should get I exam inations every 6 months. If however he is concerned he can always stop the medication. At this point he rather standing medications is working for him. The CPAP therapy has been affecting beneficial. He does uses CPAP every night for more than 4 hours a night. He does get supplies directly from [facility]. He denies any issues with the mask or any supply issues. The patient is without any other complaints. 03/20/2020 the patient is here for sick visit. Apparently he has been having worsening shortness of breath. He is also said other constitutional symptoms including dizziness and headaches. He has had elevated blood pressures. He did go to [facility] with elevated blood pressure and his ongoing symptoms of shortness of breath. He also was evaluated by his primary care doctor. However, he continues to have significant shortness of breath and he became very concerned. Therefore he made an appointment with Pulmonary. 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 He states that his Coumadin levels have been okay. He has also continue on his Anoro inhaler on a daily basis. Has not gotten any benefit from using his short-acting beta agonist. In the office we did have him go for 6 minutes walk test and the patient quickly desaturated below 87%. Patient was initially placed on 2 L and then had to be be increased to 3 L with improvement of his oxygenation. At this point the patient has acute onset respiratory failure of unclear etiology. He was tested for COVID-19 while at [facility]. Would be unreasonable to check his antibodies. In regards of his CPAP therapy the therapy continues to be affecting beneficial. He continues uses for more than 4 hours a night. 05/20/2021 the patient is here for a pulmonary follow-up visit. He is here with his . She is stating that he is still snoring significantly on the CPAP. He is wearing a nasal mask. She did getting him a chin strap that was not helpful. I explained to them that he needs to go back to full face mask to get the best effect. I did have an F 30 medium available and he did try it and seemed to be comfortable for him therefore he will continue using it. We will continue the current CPAP pressures. In the meantime the patient continues on Coumadin for his antiphospholipid syndrome. He has been having significant sinus congestion and postnasal drip as well as a sore throat. It is likely a component of sinusitis. I will treat him with some antibiotics to try to help his overall upper respiratory obstruction. It is likely that this obstruction is resulting worsening shortness of breath. He continues to use the oxygen. He is upset with the [employer] company because they have been delivering consistently. I will request to see if they can provide him with a filling station since he is using the small B-cylinders with a conserving device valve. 12/28/2021 the patient is here for pulmonary follow-up visit. Overall he continues to do well. He has been using his CPAP. The CPAP therapy has been affecting beneficial. He is using it every night. The current mask setting and set up is working a lot better for him. He is not using any oxygen while on the CPAP. Although, complains of nasal congestion, moderate in severity with post nasal drip. The nasal spray and allergy medicine are partially helpful. He does continue on the Coumadin. He is doing well with that. He does have a history of antiphospholipid syndrome needs to be on the Coumadin lifelong. In addition to that he is using his oxygen with activity. We did look at his pulmonary function studies in his diffusing capacity is up to 45% predicted suggesting that the patient does not need to use the oxygen when he is resting. Therefore he can always said off and then use it with activity. He is getting his oxygen now through [facility]. otherwise his pulmonary function studies demonstrate moderate COPD and mild restriction. He is walking regularly and is already lost weight at this point he is going to continue with current respiratory therapy. We have no plans of any changes at this time. Will have him follow-up in a year's time or sooner if any issues arise. 01/06/2023 the patient is here for a pulmonary follow-up visit. The patient has been nervous about a growing nodule that he has in his left lower lobe. The nodule was described as spiculated been increasing in size compared to the previous 1. Therefore he is concerned. However, the patient is already on oxygen supplementation in addition to that he has a history of thromboembolic disease with antiphospholipid syndrome. The patient has been on anticoagulation for a significant part of his life. Therefore, it is difficult to know how much she will tolerate as far as surgical resection. The patient did a have pulmonary function studies done at [facility] and I will request those results. The patient is concerned about the findings. He is also concern for any aggressive interventions. He is talking closely throughout thoracic surgeon. My recommendation is to consider a PET scan based on the fact that the nodules measuring 8 mm in size and based on his comorbidities and make give was helpful information to move forward. I have a discussion with the thoracic surgeon to see if he is agreeable to that otherwise will discuss further alternative options. 02/09/2023 the patient is here for a pulmonary follow-up visit. The patient overall has been feeling much better. Breathing overall is better. He did complete a course of antibiotics. He continues on his blood thinners. The patient has been using his oxygen with good effect. He has also been using the CPAP at nighttime. The CPAP therapy continues to be affecting beneficial. He does use it for more than 4 hours a night. The patient did undergo a PET scan to follow-up with the 8 mm spiculated nodular density. Although it appears that has not increased in size since his last CT scan in 6 months. Also be FDG activity is down to 1.5. We know this is a small subcentimeter pulmonary nodule sub PET scan does have his limitations although is reassuring to find the nodule to be low in metabolic activity. The patient will be following up with thoracic surgery. Likely will continue surveillance of this nodule. The patient is high risk for any surgical interventions. 09/27/2023 the patient is here for a pulmonary follow-up visit. The patient overall has been doing well from a respiratory status. He continues use the oxygen with good effect. The patient does have oxygen that he uses continuously throughout the day and also at nighttime. At nighttime he also uses CPAP. CPAP therapy has been affecting beneficial. He does uses CPAP more than 4 hours a night. I will make sure to send a script in order for him to continue getting supplies readily. Patient also continues on the Coumadin for his antiphospholipid syndrome. Has a high risk for developing blood clots. His followed closely by Hematology. He has underlying emphysema. Extensive and amount. Resulting the diffusion impairment in the oxygen needs. The patient also has pulmonary nodules bilaterally. The largest nodule measuring 8 mm in size in the left lower lobe close to the fissure. No clear airway going to this distribution. The nodule did not have any significant PET activity and has not significantly changed in size which is reassuring. In view of the patient is comorbidities I do not encouraged any invasive or semi-invasive diagnostic interventions. Patient should have repeat CT scan in 6-12 months. He will be following up with Interventional Pulmonary and they can discuss further their recommendations. in the meantime the patient will continue with current respiratory therapy and will continue with CPAP at nighttime in the oxygen as prescribed. 02/01/2024 the patient is here for a pulmonary follow-up visit. Overall he is doing okay. He is recovering from COVID-19. Seems to be doing better. The patient did undergo a sleep study. I did personally review it although was a limited study because he could not sleep well. Seems that he does need additional CPAP support so therefore we will request a replacement machine with the higher pressure at this time 12-18 cm of water. The patient does not need any oxygen with it. He does use oxygen during the daytime that is good. In the meantime will following closely the left-sided pulmonary nodule measuring about 8 mm in size. The last CT scan from 09/30/2023 that Lena demonstrating no significant changes. Therefore, we should repeat it in 6 months. He does not want any aggressive interventions at this time. Therefore will hold off on any interventional pulmonary procedures and which is continue to follow the nodule in 04/01/2024. The patient also will need to get a replacement CPAP. Will send a prescription over to his DME company that is been very helpful for him. The CPAP therapy has been very affecting beneficial for him. Therefore he needs to continue it will needs a replacement because machine now is noting that the motor is not working appropriately. Patient will follow-up in the end of March to follow up with his CT scan and to see how he is responding to the new CPAP. he is also having symptoms sinusitis. Will go ahead and treat that as well. Sinus pressure cough chest congestion. Lungs sound clear. 04/09/2024 the patient is here for a pulmonary follow-up visit. Overall he is doing okay. He did have a recent CT scan of the chest which I did talk to him over the phone initially. Appeared that he had 2 nodules that were spiculated and growing. Now measuring 12 mm in size. I did refer him to thoracic surgery who then referred him to interventional pulmonary. He is scheduled to undergo a PET scan and then also robotic bronchoscopy at [place]. The patient has also been using his CPAP. CPAP therapy has been very affecting beneficial. He tries to use it every night for more than 4 hours. Although, his current CPAP is about 14 years old and now is resulting in motor malfunctioning and it needs to be replaced. Will request an new replacement APAP local DME company, [facility]. He is also using his oxygen good effect. He did get his POC been working affecting beneficial. Will follow-up in 3-4 months in follow-up after his surgery. If he has any issues prior to that he will call for an earlier assessment. [facility] Medical History (Updated 01/09/23 @ 08:14 by Vern Hammond MD) Pulmonary nodule Chronic restrictive lung disease Chronic respiratory failure Anti-phospholipid antibody syndrome Hypoxia RUFUS on CPAP COPD (chronic obstructive pulmonary disease) Social History Patient Tobacco Use Status: Former Tobacco user Tobacco use type: Cigarette Years Smoked: 14 years old Review of Systems Const Denies night sweats and Denies snoring ENT Denies change in voice, Denies lip swelling, Denies mouth pain, Reports nasal congestion, Reports nasal discharge, Reports sinus pain, Reports sinus pressure, Denies sore throat and Denies tongue swelling Card Denies chest pain and Reports dyspnea on exertion Resp Reports chest congestion, Reports cough, Reports dyspnea on exertion and Denies snoring GI Denies abdominal pain Musc Denies no additional complaints Neuro Denies Neuro-related abnormal movements Psych Denies no additional complaints Skyler/Lymph Denies easy bleeding and Denies lymphadenopathy Aller/Immun Denies lip swelling and Denies tongue swelling Physical Exam Vital Signs: Last Vital Signs Pulse 85 04/09/24 13:46 BP 134/80 04/09/24 13:46 Pulse Ox 90 L 04/09/24 13:46 Oxygen Delivery Method Nasal Cannula 04/09/24 13:46 Oxygen Flow Rate 2 04/09/24 13:46 BMI result Body Mass Index 36.3 Const General: alert HEENT General nose exam: Nasal discharge present Mouth: moist mucous membranes Throat: Yes posterior oropharynx abnormal ( Erythema without any thrush or exudate) Neck Neck: Yes normal visual inspection, Yes full ROM and Yes no lymphadenopathy Chest Chest palpation & inspection: normal inspection of the chest Resp Auscultation: no rales, no rhonchi, no wheezes and diminished lung sounds Cardio Rate: regular rate and tachycardic Rhythm: regular rhythm Heart sounds: S1 normal heart sound present and S2 normal heart sound present GI Palpation (GI): Soft to palpation and nontender Auscultation: normal bowel sounds General: Yes no CVA tenderness Back/Spine/Pelvis Back: no CVA tenderness Skin General skin exam: rashes and/or lesions noted Results Reviewed Results Reviewed: reviewed CT chest 03/2024 with worsening nodules concerning for cancer Assessment & Plan Assessment & Plan (1) Chronic respiratory failure: Comment: Due to extensive emphysema Code(s): J96.10 - Chronic respiratory failure, unspecified whether with hypoxia or hy percapnia Category: Medical Qualifiers: Respiratory failure complication: hypoxia Qualified Code(s): J96.11 - Chronic respiratory failure with hypoxia (2) Anti-phospholipid antibody syndrome: Code(s): D68.61 - Antiphospholipid syndrome Category: Medical (3) RUFUS on CPAP: Code(s): G47.33 - Obstructive sleep apnea (adult) (pediatric); Z99.89 - Dependence on other enabling machines and devices Category: Medical (4) COPD (chronic obstructive pulmonary disease): Code(s): J44.9 - Chronic obstructive pulmonary disease, unspecified Category: Medical Qualifiers: COPD type: chronic bronchitis Chronic bronchitis type: simple Qualified Code(s): J41.0 - Simple chronic bronchitis (5) Chronic restrictive lung disease: Comment: mild Code(s): J98.4 - Other disorders of lung Category: Medical (6) Pulmonary nodule: Comment: 8 mm spiculated nodule, concerning Code(s): R91.1 - Solitary pulmonary nodule Category: Medical (7) Sinusitis: Code(s): J32.9 - Chronic sinusitis, unspecified Category: Medical Qualifiers: Chronicity: subacute Sinusitis location: unspecified location Qualified Code(s): J01.90 - Acute sinusitis, unspecified Plan Awaiting PET scan, PFTs and LLL biopsy by [facility]. Would not be a candidate for surgery due to his hypoxia. but would be a good candidate for SBRT if local disease continue fluticasone nasal spray continue Claritin daily Continue APAP with fullface mask, F 30 medium. Needs a replacement APAP, current APAP broken beyond repeair. Titration study recommended cpap 14cm RA, will start APAP 10-16 Continue Anoro daily Continue oxygen supplementation. He is using at 2 L pulse with activity.DME is [facility] now continue coumadin for antiphospholipid syndrome Follow-up in 3-4 months Coding Level of Care Code Est Pt Level 5 (10654) Diagnoses Chronic respiratory failure with hypoxia J96.11 Respiratory failure complication: hypoxia Anti-phospholipid antibody syndrome D68.61 RUFUS on CPAP G47.33; Z99.89 Simple chronic bronchitis J41.0 COPD type: chronic bronchitis Chronic bronchitis type: simple Chronic restrictive lung disease J98.4 Pulmonary nodule R91.1 Subacute sinusitis, unspecified location J01.90 Chronicity: subacute Sinusitis location: unspecified location Time Spent (min) 40
[2024-04-09 13:46] VITALS: BP 134/80; PULSE 85; O2SAT 90; BMI 36.3
--- OUTSIDE RECORDS SUMMARY | 2024-04-09 14:17 | XMS_ITS | Clinical Summary ---
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 Name Role Phone Unavailable Primary Care Provider Unavailabl e Medications ergocalciferol 1.25 MG ([id number] UT) capsule TAKE 1 CAPSULE BY MOUTH ONE TIME PER WEEK 12 capsule 11 03/14/2023 Active Social History Tobacco Use Types Packs/Day Years Used Date Smoking Tobacco: Never Assessed Sex and Gender Information Value Date Recorded Sex Assigned at Not on file Legal Sex Male 4:51 PM EST Gender Identity Not on file Sexual Orientation Not on file Plan of Treatment Health Maintenance Due Date Last Done Comments Pneumococcal Vaccine: 65+ Ye ars (1 of 2 - PCV) 02/10/1956 Colorectal Cancer Screening: Annual FOBT 1999 Colorectal Cancer Screening: Colonoscopy 1999 Colorectal Cancer Screening: Sigmoidoscopy 1999 Influenza Vaccine (#1) 2023 Hepatitis B Vaccine Aged Out No longe r eligible based on patient's age to complete this topic
--- OUTSIDE RECORDS SUMMARY | 2024-04-09 14:17 | XMS_ITS | Encounter Summary ---
Author Organization [facility] Address [address] [place] [address] Care Team Providers Care Camera Mechanic Name Role Phone Randa Yip MD Primary Care Provider [phone] Reason for Referral * Imaging (Routine) - Closed Specialty Diagnoses / Procedures Referred By Юлия casanova Referred To Contact Radiology Diagnoses Solitary pulmonary nodule Procedures CT Chest wo Contrast Vern Hammond MD 175 [facility] 200 [place] [address] [address] Referral ID Status Reason Start Date Expiration Date Visits Re quested Visits Authorized [id number] Closed 02/21/2024 02/20/2025 1 1 Reason for Visit * Imaging (Routine) - Closed Specialty Diagnoses / Procedures Referred By Юлия casanova Referred To Contact Radiology Diagnoses Solitary pulmonary nodule Procedures CT Chest wo Contrast Vern Hammond MD 175 [facility] [address] [place] [address] [facility] [address] [place] [address] Referral ID Status Reason Start Date Expiration Date Visits Re quested Visits Authorized [id number] Closed 02/21/2024 02/20/2025 1 1 Encounter Details Date Type Department Care Team (Latest Contact Info) Description 03/21/2024 1:45 PM EST - 03/21/2024 11:59 PM EST Hospital Encounter [facility] CT Scan [address] [place] [address] Solitary pulmonary nodule Discharge Disposition: Home or Self Care Social History Tobacco Use Types Packs/Day Years Used Date Smoking Tobacco: Former Smokeless Tobacco: Never Alcohol Use Standard Drinks/Week Comments No 0 (1 standard drink = 0.6 oz pur e alcohol) Sex and Gender Information Value Date Recorded Sex Assigned at Not on file Gender Identity Not on file Sexual Orientation Not on file Job Start Date Occupation Industry Not on file Not on file Not on file documented as of this encounter Medications at Time of Discharge Medication Sig Dispensed Refills Start Date End Date amLODIPine (NORVASC) 10 mg tablet TAKE 1 TABLET BY MOUTH EVERY DAY 90 tablet 1 02/01/2024 atenoloL (TENORMIN) 25 mg tablet TAKE 1 TABLET BY MOUTH EVERY DAY 90 tablet 1 02/27/2024 clopidogreL (PLAVIX) 75 mg tablet Take 1 tablet (75 mg total) by mouth daily. ezetimibe (ZETIA) 10 mg tablet Take 1 tablet (10 mg total) by mouth daily. folic acid (FOLVITE) 1 mg tablet Take 1 tablet (1 mg total) by mouth daily. furosemide (LASIX) 20 mg tablet TAKE 1 TABLET BY MOUTH EVERY DAY 90 tablet 1 02/27/2024 lisinopriL (PRINIVIL,ZESTRIL) 20 mg tablet Take 1 tablet (20 mg total) by mouth daily. 02/18/2019 magnesium oxide (MAG-OX) 400 mg (241.3 elemental magnesium) tablet TAKE 1 TABLET BY MOUTH EVERY DAY 90 tablet 1 02/27/2024 melatonin 3 mg tablet Take 1 tablet (3 mg total) by mouth every night at bedtime. omeprazole (PriLOSEC) [address] capsule Take 1 capsule (20 mg total) by mouth daily. predniSONE (DELTASONE) 10 mg tablet Take 1 tablet (10 mg total) by mouth daily. 07/21/2021 Trulicity 0.75 mg/0.5 mL pen injector injection INJECT 1 DOSE INTO THE SKIN ONCE A WEEK 2 mL 5 02/27/2024 umeclidinium-vilanteroL (ANORO ELLIPTA) 62.5-25 mcg/actuation inhaler 1 puff by Inhaled route daily. 06/09/2017 warfarin (COUMADIN) 1 mg tablet 5mg daily 12/16/2016 glipiZIDE (GLUCOTROL) 5 mg tablet Take 1 tablet (5 mg total) by mouth daily. 03/25/2024 documented as of this encounter Discharge Disposition Disposition Code Departure Means Destination Home or Self Care documented in this encounter Plan of Treatment Upcoming Encounters Date Type Department Care Team (Latest Contact Info) Description 04/10/2024 12:30 PM EST Procedure visit Pulmonolgy [facility] 175 [facility] 200 [place] [phone] Edy Servin 04/19/2024 1:00 PM EST Pre-Admission Testing [facility] Pre-Admission Testing [address] [place] [phone] 05/01/2024 8:15 AM EST Hospital Encounter [facility] OR [address] [place] [phone] Gay Rodriguez MD [address] [place] [phone] 05/01/2024 8:15 AM EST - 05/01/2024 10:00 AM EST Surgery [facility] OR [address] [place] [phone] Gay Rodriguez MD [address] [place] [phone] ROBOTIC ASSISTED BRONCHOSCOPY W. FNA, TBBX, BRUSH, BAL [[id number] (CPT??)] 05/09/2024 1:00 PM EST Office Visit Pulmonology - [place] 299 [facility] [address] [place] [phone] Gay Rodriguez MD [address] [place] [address] 05/27/2024 2:15 PM EDT Office Visit [facility] Hematology Oncology [address] [place] [phone] Sayda-Edmund Gordon MD [address] [place] [address] 07/25/2024 1:00 PM EDT Office Visit Internal Medicine - [place] 175 [facility] [address] [place] [phone] Randa Yip MD 175 [facility] 200 [place] [phone] 01/07/2025 12:30 PM EDT [facility] [address] [place] [address] Betito Fisher MD 3550 [facility] [address] [place] [address] Scheduled Procedures Name Priority Associated Diagnoses Date/Ti me BRONCHOSCOPY Lung nodule 05/01/2024 8:15 AM EST BRONCHOSCOPY NODULE 1 ROBOT Lung nodule 05/01/2024 8:15 AM EST BRONCHOSCOPY NODULE 2 ROBOT Lung nodule 05/01/2024 8:15 AM EST BRONCHOSCOPY WITH FIDUCIAL PLACEMENT Lung nodule 05/01/2024 8:15 AM EST documented as of this encounter Procedures Procedure Name Priority Date/Time Associated Diagnosis Comments CT CHEST WO CONTRAST Routine 03/21/2024 2:49 PM EST Solitary pulmonary nodule documented in this encounter Results * CT Chest wo Contrast (03/21/2024 2:49 PM EST) Anatomical Region Laterality Modality Body Computed Tomogra phy 03/28/2024 12:4 3 PM EST Impressions 03/28/2024 12:45 PM EST Two increased, spiculated left lower lobe nodules suspicious for synchronous primary lung neoplasms. ??No metastatic disease in the chest. -------- FINAL REPORT -------- Dictated By: RASHAAD WANG Dictated Date: 03/28/2024 12:43 ET Assigned Physician: RASHAAD WANG Reviewed and Electronically Signed By: RASHAAD WANG Signed Date: 03/28/2024 12:45 ET Workstation ID: [id number] Transcribed By: Self Edit Transcribed Date: 03/28/2024 12:43 ET Narrative 03/28/2024 12:45 PM EST PROCEDURE: Chest CT INDICATION: Solitary pulmonary nodule, R91.1 TECHNIQUE: Chest CT without contrast. Multi planar reformats were created and interpreted. The examination was performed utilizing dose reduction techniques. ??Total DLP 851 COMPARISON: ??09/11/2023 FINDINGS: LUNGS/PLEURA: Central airways are patent. ??Severe emphysema. ??Increased spiculated left lower lobe nodule tenting the adjacent fissure now measuring 14 mm as compared to 6 mm prior. ??Additional increased left lower lobe spiculated nodule measuring 9 mm as compared to 3 mm prior. ??No pleural effusion or pneumothorax. ??Linear scarring along the anterior aspect of the left upper lobe is stable compared to prior. ??Scarring in the periphery of the left lower lobe, unchanged. ??No pleural effusion or pneumothorax. MEDIASTINUM: Thyroid gland is unremarkable. No mediastinal or hilar lymphadenopathy. Cardiac chambers are normal in size. No pericardial effusion. Esophagus is normal. ??Moderate coronary artery calcifications. CHEST WALL: No axillary lymphadenopathy or superficial hematoma. UPPER ABDOMEN:Splenectomy BONES: No acute fracture. Scattered degenerative changes seen throughout the bones. Procedure Note Rashaad Wang MD - 03/28/2024 PROCEDURE: Chest CT INDICATION: Solitary pulmonary nodule, R91.1 TECHNIQUE: Chest CT without contrast. Multi planar reformats were createdand interpreted. The examination was performed utilizing dose reductiontechniques. Total DLP 851 COMPARISON: 09/11/2023 FINDINGS: LUNGS/PLEURA: Central airways are patent. Severe emphysema. Increasedspiculated left lower lobe nodule tenting the adjacent fissure nowmeasuring 14 mm as compared to 6 mm prior. Additional increased leftlower lobe spiculated nodule measuring 9 mm as compared to 3 mm prior. Nopleural effusion or pneumothorax. Linear scarring along the anterioraspect of the left upper lobe is stable compared to prior. Scarring inthe periphery of the left lower lobe, unchanged. No pleural effusion orpneumothorax. MEDIASTINUM: Thyroid gland is unremarkable. No mediastinal or hilarlymphadenopathy. Cardiac chambers are normal in size. No pericardialeffusion. Esophagus is normal. Moderate coronary artery calcifications. CHEST WALL: No axillary lymphadenopathy or superficial hematoma. UPPER ABDOMEN:Splenectomy BONES: No acute fracture. Scattered degenerative changes seen throughoutthe bones. IMPRESSION: Two increased, spiculated left lower lobe nodules suspicious forsynchronous primary lung neoplasms. No metastatic disease in the chest. -------- FINAL REPORT -------- Dictated By: RASHAAD WANG Dictated Date: 03/28/2024 12:43 ET Assigned Physician: RASHAAD WANG Reviewed and Electronically Signed By: RASHAAD WANG Signed Date: 03/28/2024 12:45 ET Workstation ID: [id number] Transcribed By: Self Edit Transcribed Date: 03/28/2024 12:43 ET Vern Hammond MD IMG CT PROCEDURES documented in this encounter Visit Diagnoses Diagnosis Solitary pulmonary nodule Lung nodule Other diseases of lung, not elsewhere classified documented in this encounter Care Teams Camera Mechanic Relationship Specialty Start Date End Date Randa Yip MD [address] [place] [phone] PCP - General Internal Medicine 02/16/24 documented as of this encounter
--- OUTSIDE RECORDS SUMMARY | 2024-04-09 14:17 | XMS_ITS | Data Portability ---
Author Organization [place] [facility], [facility] Address [address] [place] [phone] Assessment Encounter Date Assessment Date Assessment LastModified by Organization Details LastModified Time 03/18/2024 03/18/2024 Patient with bilateral neurosensory hearing loss. There is 25 dB asymmetry in two contiguous frequencies, with the left being the lesser-hearing ear. 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 Recommend repeat audiometric testing in 3-6 months, sooner with worsening or development of tinnitus or vertigo. If stable, will drop to annual testing. If changed, will advace to MRI of brain and IACs. Patient is agreeable to the plan. He is not currently interested in amplification. [email or web address] Not available 03/18/2024 14:48:48 Plan of Treatment Reminders Order Date Submit Date Provider Last Modified By Organization Details Last Modified Time Details Appointments Hearing Test 2024 01:00P M Hearing Test Not available Not available Not available Establish ed 15 2024 01:30P M WANDA LUGO PA-C Not available Not available Not available Hearing Test 2024 01:00P M Hearing Test Not available Not available Not available Establish ed 15 2024 01:30P M CELINA ALEJANDRE PA-C Not available Not available Not available Lab None recorded. Referral None recorded. Procedures None recorded. Surgeries None recorded. Imaging None recorded. Medication Orders None recorded. Patient TargetsNo targets recorded. Patient InstructionsNo instructions recorded. Reason for Referral None Reported. Results Created Date Observation Date Name Description Value Unit Range Abnormal Flag Note LastModifiedBy Organization Detail LastModifiedTime 03/19/19 25 audio gram No observ ation record ed. BARCODE Not Available 2024 10:49:01 Result Notes None recorded. Problems Name Problem SNOMED Code Status Onset Date Resolution Date Notes Provider Name and Address Organization Details Recorded Time Sensorineur al hearing loss of bilateral ears 807128029 Active 2024 RUBINA KEARNEY, AUD [address], [place], [phone], [facility] 13:06:55 Disorder of left Eustachian tube [id number] 109 Active 2024 [facility] [address] [facility], [place], [phone], [facility] 14:49:25 Dysfunction of right eustachian tube 4500463611889 101 Active 2024 WANDA KETCHEN, PA-C [address] [facility] [address], [place], [phone], [facility] 14:49:39 Problem Notes None recorded. Procedures Surgical History Date Name Laterality Status Provider Name and Address Organization Details Recorded Time 03/18/2024 Comp Audio with Tymps (36657 & 75468) completed MICHAEL VILLEDA [address] [facility] [address], [place], [address], [facility] 03/18/2024 13:06:39 Imaging Results Imaging Date Name Status LastModified by Organiz ation Details LastModified Time 03/19/2024 audiogram completed BARCODE Information no t available 03/19/2024 10:49:01 Procedure Notes None recorded. Medical Equipment None Reported. Allergies No known drug allergies Medications Name Sig Start Date Stop Date Status Note LastModified by Organization Details LastModified Time prednisone 10 mg tablet TAKE 1 TABLET BY MOUTH EVERY DAY active Not Available Not Available No t Available glipizide ER 5 mg tablet, extended release 24 hr TAKE 1 TABLET BY MOUTH EVERY DAY active Not Available Not Available No t Available atenolol 25 mg tablet TAKE 1 TABLET BY MOUTH EVERY DAY active Not Available Not Available No t Available doxycycline monohydrate 100 mg tablet TAKE 1 TABLET BY MOUTH TWICE A DAY FOR 14 DAYS 03/18 completed Not Available Not Available Not Available magnesium oxide 400 mg (241.3 mg magnesium) tablet TAKE 1 TABLET BY MOUTH EVERY DAY active Not Available Not Available No t Available amlodipine 10 mg tablet TAKE 1 TABLET BY MOUTH EVERY DAY active Not Available Not Available No t Available warfarin 5 mg tablet TAKE 1&1/2 TABLETS DAILY.MAY CAUSE HEAVY BLEEDING. TAKE AT SAME TIME DAILY.DON T CHANGE DIETARY HABITS active Not Available Not Available No t Available omeprazole 20 mg capsule,del ayed release TAKE 1 CAPSULE BY MOUTH EVERY DAY active Not Available Not Available No t Available folic acid 1 mg tablet TAKE 1 TABLET BY MOUTH EVERY DAY active Not Available Not Available No t Available alcohol swabs USE ONCE DAILY DIRECTED active Not Available Not Available No t Available furosemide 20 mg tablet TAKE 1 TABLET BY MOUTH EVERY DAY active Not Available Not Available No t Available gabapentin 100 mg capsule TAKE 1 CAPSULE BY MOUTH THREE TIMES A DAY active Not Available Not Available No t Available ergocalcife rol (vitamin D2) 1,250 mcg (50,000 unit) capsule TAKE 1 CAPSULE BY MOUTH ONE TIME PER WEEK active Not Available Not Available No t Available clobetasol 0.05 % topical ointment APPLY SMALL AMOUNT TO AFFECTED AREA 2 TIMES A DAY active Not Available Not Available No t Available warfarin 1 mg tablet PLEASE SEE ATTACHED FOR DETAILED DIRECTION S active Not Available Not Available No t Available albuterol sulfate HFA 90 mcg/actuati on aerosol inhaler INHALE 2 PUFFS BY MOUTH EVERY 6 HOURS NEEDED FOR SHORTNESS OF BREATH OR WHEEZING active Not Available Not Available No t Available lisinopril 40 mg tablet TAKE 1 TABLET BY MOUTH EVERY DAY active Not Available Not Available No t Available fluticasone propionate 50 mcg/actuati on nasal spray,suspe nsion SPRAY 2 SPRAYS INTRANASA LLY DAILY active Not Available Not Available No t Available loratadine 10 mg tablet TAKE 1 TABLET BY MOUTH EVERY DAY active Not Available Not Available No t Available ezetimibe 10 mg tablet TAKE 1 TABLET BY MOUTH EVERY DAY active Not Available Not Available No t Available ketorolac 0.4 % eye drops INSTILL 1 DROP IN OPERATIVE EYE TWICE A DAY ..START 2 DAYS BEFORE SURGERY active Not Available Not Available No t Available FreeStyle Lite Strips USE 1 STRIP TO TEST BLOOD 3 TIMES A DAY active Not Available Not Available No t Available melatonin 5 mg tablet TAKE 2 TABLETS BY MOUTH EVERY DAY active Not Available Not Available No t Available Anoro Ellipta 62.5 mcg-25 mcg/actuati on powder for inhalation INHALE 1 PUFF BY MOUTH EVERY DAY active Not Available Not Available No t Available Trulicity 0.75 mg/0.5 mL subcutaneou s pen injector INJECT 1 DOSE INTO THE SKIN ONCE A WEEK active Not Available Not Available No t Available Vitals Date Recorded Body height Body mass index (BMI) Body weight Provider Name and Address Organization Details Last Updated DateTime 03/18/2024 180.34 cm 34.6 kg/m2 682806.91 g Aminah Monterroso [place] - [facility] 03/18/2024 13:21:03 Social History None recorded. Functional Status None recorded. Mental Status None recorded. Family History Nothing Reported. Medical History No medical history recorded. Past Encounters Encounter ID Performer Location Encounter Start Date Encounter Closed Date Diagnosis/Indication Diagnosis SNOMED-CT Code Diagnosis ICD10 Code Diagnosis Note [id number] WANDA LUGO PA-C [facility] [address] [phone] 03/18/2024 12:24:16 03/18/2024 13:39:19 Sensorineural hearing loss of bilateral ears 367934304 H90.3 Audiologic al evaluation results:Ri ght ear:{{Norm al sloping* M ild Modera te Moderat abena-severe Severe Pr ofound Nor mal auditory thresholds }} to {{mild* mo derate mod erately-se trina sever e profound with}} {{sensorin eural hearing loss with* cond uctive hearing loss with mixed hearing loss with}} {{excellen t* good fa ir poor no t measurable }} word recognitio n.Left ear:{{Norm al sloping* M ild Modera te Moderat abena-severe Severe Pr ofound Nor mal auditory thresholds }} to {{mild mod erate* mod erately-se trina sever e profound with}} {{sensorin eural hearing loss with* cond uctive hearing loss with mixed hearing loss with}} {{excellen t* good fa ir poor no t measurable }} word recognitio n.Tympanom etry:Right Ear:{{Type A Type As Type Ad Type C* Type C, shallow & rounded Ty pe B Type B with large volume Cou ld not maintain a hermetic seal}}Left Ear:{{Type A Type As Type Ad Type C Type C, shallow & rounded Ty pe B Type B with large volume Cou ld not maintain a hermetic seal*}} Dysfunctio n of right eustachian tube [id number] 666714 H69.91 Health Concerns Section Related Observation LastModified by Organization Detai ls LastModified Time None Recorded Concern Status LastModified by Organization Details LastModified Time None Recorded Advance Directives Directive None Recorded Payers Encounter Date Sequence Insurance Name Policy Number Policy Bone Covered Member ID Bone Member ID Guarantor Name 03/18/2024 1 [facility] - DOS ON OR AFTER 2022 - ONE CARE (MEDICARE REPLACEMENT/ADV ANTAGE - HMO) Maycol Keen [id number] Maycol Keen Notes Date Note Type Note Provider Name and Address Organization Details Recorded Time 03/18/2024 text/html 74 year old male presents with spouse for evaluation of ears and hearing. Feels the hearing is good. Had some tinnitus and diminished hearing loss a few months ago, during a sinus infection. Tinnitus went away and hearing came back to normal after a course of penicillin. No vertigo. 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 No history of recurrent otitis or otologic surgeries. No history of otalgia nor otorrhea. WANDA LUGO PA-C [address] [place] [address], [phone], [facility] - [facility] 03/18/2024 14:50:44
--- OUTSIDE RECORDS SUMMARY | 2024-04-09 14:17 | XMS_ITS | Clinical Summary ---
Author Organization [facility] Address [address] [place] [address] Phone Care Team Providers Care Group Fitness Instructor Name Role Phone Randa Yip MD Primary Care Provider [phone] Allergies Active Allergy Reactions Criticality Noted Date Comments Hydralazine 01/20/2021 Pravastatin 08/04/2016 Jaundice Medications Medication Sig Dispensed Refills Start Date End Date Status clopidogreL (PLAVIX) 75 mg tablet Take 1 tablet (75 mg total) by mouth daily. Active ezetimibe (ZETIA) 10 mg tablet Take 1 tablet (10 mg total) by mouth daily. Active folic acid (FOLVITE) 1 mg tablet Take 1 tablet (1 mg total) by mouth daily. Active lisinopriL (PRINIVIL,ZESTRIL ) 20 mg tablet Take 1 tablet (20 mg total) by mouth daily. 02/18/2019 Active melatonin 3 mg tablet Take 1 tablet (3 mg total) by mouth every night at bedtime. Active omeprazole (PriLOSEC) [address] capsule Take 1 capsule (20 mg total) by mouth daily. Active predniSONE (DELTASONE) 10 mg tablet Take 1 tablet (10 mg total) by mouth daily. 07/21/2021 Active umeclidinium-herminia nteroL (ANORO ELLIPTA) 62.5-25 mcg/actuation inhaler 1 puff by Inhaled route daily. 06/09/2017 Active warfarin (COUMADIN) 1 mg tablet 5mg daily 12/16/2016 Active amLODIPine (NORVASC) 10 mg tablet TAKE 1 TABLET BY MOUTH EVERY DAY 90 tablet 1 02/01/2024 Active furosemide (LASIX) 20 mg tablet TAKE 1 TABLET BY MOUTH EVERY DAY 90 tablet 1 02/27/2024 Active atenoloL (TENORMIN) 25 mg tablet TAKE 1 TABLET BY MOUTH EVERY DAY 90 tablet 1 02/27/2024 Active magnesium oxide (MAG-OX) 400 mg (241.3 elemental magnesium) tablet TAKE 1 TABLET BY MOUTH EVERY DAY 90 tablet 1 02/27/2024 Active Trulicity 0.75 mg/0.5 mL pen injector injection INJECT 1 DOSE INTO THE SKIN ONCE A WEEK 2 mL 5 02/27/2024 Active glipiZIDE (GLUCOTROL) 5 mg tablet Take 1 tablet (5 mg total) by mouth daily. 03/25/2024 Discontinued () Active Problems Problem Noted Date Diagnosed Date Antiphospholipid antibody with hypercoagulable s wade 01/25/2024 [facility] (current) use of anticoagulants 2023 Weight loss 01/28/2020 Obstructive sleep apnea syndrome 01/09/2017 Assessment & Plan (03/25/2024 6:57 PM EST): Hypertension 12/16/2016 Allergic rhinitis 10/21/2016 Chronic obstructive pulmonary disease 10/21/2016 Assessment & Plan (03/25/2024 6:57 PM EST): Deep vein thrombosis (DVT) of lower extremity Multiple pulmonary nodules 10/21/2016 Assessment & Plan (04/01/2024 11:16 AM EST): 74-year-old man with multiple comorbidities including antiphospholipid syndrome, autoimmune hemolytic anemia, chronic kidney disease, obstructive sleep apnea, history of DVT on Coumadin with 2 quite suspicious pulmonary nodules in the left lower lobe. I had a long discussion with him and his about the findings on his serial CT scans as described in the HPI. I also explained pulmonary nodules in general and how their size, shape, and heel coverer time affect her level of suspicion for malignancy. Given that these are spiculated nodules that have increased in size over time the suspicion is high. I also discussed the diagnosis, staging, and treatment of lung cancer with them which they seemed understand. To start off, we will complete staging workup with a PET scan and I explained PET scans to them how we use them primarily to rule out distant disease. We will also get pulmonary function testing and I did make a referral to interventional pulmonary for consideration of robotic bronchoscopy with biopsy of both of these nodules and EBUS to stage the mediastinum at least. We will also plan on talking about him at our multidisciplinary thoracic oncology conference in the coming weeks. They were in agreement with this plan and an appointment was made with interventional pulmonary in this office for tomorrow. All questions were answered. Autoimmune hemolytic anemia 08/04/2016 Assessment & Plan (03/25/2024 6:57 PM EST): Eczema 07/08/2016 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 Ulcer of ankle 06/06/2016 Hypercholesterolemia 08/13/2015 Aortic valve sclerosis 02/20/2014 Malignant neoplasm of overlapping sites of bladd er 02/20/2014 CKD (chronic kidney disease) stage 3, GFR 30-59 ml/min 02/19/2013 Steatosis of liver 02/19/2013 Asymptomatic varicose veins of lower extremity 1 04/17/2011 Microscopic hematuria 02/07/2012 Encounters Date Type Department Care Team Description 04/09/2024 Anticoagulation - Warfarin Visit Coumadin Clinic - [place] [address] [place] [address] Bernadette Conner LPN Deep vein thrombosis (DVT) of distal vein of left lower extremity, unspecified chronicity (CMS/HCC) (Primary Dx); [facility] (current) use of anticoagulants; Antiphospholipid antibody with hypercoagulable state (CMS/HCC) 04/08/2024 Telephone [facility] - [facility] [address] [place] [phone] Bernadette Conner LPN 04/08/2024 Telephone Pulmonology - [place] [address] [facility] [address] [place] [phone] Dorina Maya [place] 04/08/2024 Telephone Pulmonolgy - [place] 175 [facility] [address] [place] [address] Hue Benito MA 04/02/2024 11:30 AM EST Consult Pulmonology - [place] [address] [facility] [address] [place] [phone] Gay Rodriguez MD Lung nodules (Primary Dx); Chronic hypoxemic respiratory failure (CMS/HCC); Centrilobular emphysema (CMS/HCC); Multiple pulmonary nodules 04/01/2024 11:00 AM EST Office Visit Thoracic Surgery - [place] [address] [facility] [address] [place] [phone] Sarah Green MD Multiple pulmonary nodules (Primary Dx); Antiphospholipid antibody with hypercoagulable state (CMS/HCC); 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; Chronic obstructive pulmonary disease, unspecified COPD type (CMS/HCC) 03/25/2024 3:30 PM EST Office Visit Internal Medicine - [place] [address] [facility] [address] [place] [phone] Randa Yip MD Type 2 diabetes mellitus without complication, without long-term current use of insulin (CMS/HCC) (Primary Dx); Encounter for subsequent annual wellness visit (AWV) in Medicare patient; Obstructive sleep apnea syndrome; Autoimmune hemolytic anemia (CMS/HCC); Chronic obstructive pulmonary disease, unspecified COPD type (CMS/HCC) 03/21/2024 1:45 PM EST - 03/21/2024 11:59 PM EST Hospital Encounter [facility] CT Scan [address] [place] [phone] Solitary pulmonary nodule Discharge Disposition: Home or Self Care 03/15/2024 Anticoagulation - Warfarin Visit Coumadin Clinic [facility] [address] [place] [phone] Bernadette Conner LPN Deep vein thrombosis (DVT) of distal vein of left lower extremity, unspecified chronicity (CMS/HCC) (Primary Dx); 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/HCC) (Primary Dx); [facility] (current) use of anticoagulants; Antiphospholipid antibody with hypercoagulable state (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); Antiphospholipid antibody with hypercoagulable state ([facility]) 01/17/2024 [facility]ticoagulation - [facility] [phone] Bernadette Conner LPN from Last 3 Months Surgical History Surgery Date Site/Laterality Comments OTHER SURGICAL HISTORY PROCEDURE:SPLENECTOMY OTHER SURGICAL HISTORY PROCEDURE: HISTORY OTHER; COMMENT: vein stripping Medical History Medical History Date Comments Anemia DX:Anemia Heart murmur DX:Heart murmur FH: emphysema DX:FH: emphysema CKD (chronic kidney disease) stage 3, GFR 30-59 ml/min ([facility]) 02/19/2013 DX:CKD (chronic kidney dise ase) stage 3, GFR 30-59 ml/min ([facility]) Hyperlipidemia 05/04/2017 DX:Hyperlipidemi a Acute ischemic heart disease ([facility]) 6 DX:Acute ischemic heart disease ([facility]) Allergic rhinitis 10/21/2016 DX:Allergic rh initis Antiphospholipid syndrome ([facility]) 10/21/2016 DX:Antiphospholipid syndrome ([facility]) Aortic valve sclerosis 02/20/2014 DX:Aortic valve sclerosis Asymptomatic varicose veins of lower extremity 02/15/2012 DX:Asymptomatic varicose vei ns of lower extremity Autoimmune hemolytic anemia ([facility]) 08/04/2016 DX:Autoimmune hemolytic anemia (HCC) Chronic obstructive pulmonar y disease ([facility]) 10/21/2016 DX:Chronic obstructive pulmo nary disease (HCC) Deep vein thrombosis (DVT) o f lower extremity ([facility]) 10/21/2016 DX:Deep vein thrombosis (DVT ) of lower extremity (HCC) Eczema 07/08/2016 DX:Eczema Glaucoma 02/15/2012 DX:Glaucoma Hypertension 12/16/2016 DX:Hypertension Insomnia 09/26/2017 DX:Insomnia 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 DX:Lichen planus Malignant neoplasm of urinar y bladder (CMS/HCC) 02/20/2014 DX:Malignant neoplasm of uri nary bladder (HCC) Microscopic hematuria 02/07/2012 DX:Microsc opic hematuria Multiple pulmonary nodules 10/21/2016 DX:Mu ltiple pulmonary nodules Obstructive sleep apnea syndrome 01/09/2017 DX:Obstructive sleep apnea syndrome Steatosis of liver 02/19/2013 DX:Steatosis of liver Ulcer of ankle (CMS/HCC) 06/06/2016 DX:Ulce r of ankle (HCC) Family History Medical History Relation Name Comments Cardiomyopathy Brother Cardiomyopathy Mother Cardiomyopathy Sister Relation Name Status Comments Brother Mother Sister Social History Tobacco Use Types Packs/Day Years Used Date Smoking Tobacco: Former Smokeless Tobacco: Never Tobacco Cessation:Counseling Given: Not Answered Alcohol Use Standard Drinks/Week Comments No 0 (1 standard drink = 0.6 oz pur e alcohol) Sex and Gender Information Value Date Recorded Sex Assigned at Not on file Gender Identity Not on file Sexual Orientation Not on file Job Start Date Occupation Industry Not on file Not on file Not on file Obstetrics History Last Filed Vital Signs Vital Sign Reading Time Taken Comments Blood Pressure 139/51 04/02/2024 11:39 AM EST Pulse 58 04/02/2024 11:39 AM EST Temperature 36.5 ??C (97.7 ??F) 04/02/2024 11:[address] Respiratory Rate 16 04/02/2024 11:39 AM EST Oxygen Saturation 97% 04/02/2024 11:39 AM EST 2 L Inhaled Oxygen Concentration - - Weight 116 kg (255 lb 4.8 oz) 04/02/2024 11:39 A M EST Height 180.3 cm (5' 11 ) 04/02/2024 11:39 AM EST Body Mass Index 35.61 04/02/2024 11:39 AM EST Plan of Treatment Upcoming Encounters Date Type Department Care Team (Latest Contact Info) Description 04/10/2024 12:30 PM EST [facility] [address] [place] [address] Edy Servin 04/19/2024 1:00 PM EST Pre-Admission Testing [facility] Pre-Admission Testing [address] [place] [phone] 05/01/2024 8:15 AM EST Hospital Encounter [facility] [place] [address] [place] [phone] Gay Rodriguez MD [address] [place] [phone] 05/01/2024 8:15 AM EST - 05/01/2024 10:00 AM EST Surgery [facility] OR [address] [place] [phone] Gay Rodriguez MD [address] [place] [phone] ROBOTIC ASSISTED BRONCHOSCOPY W. FNA, TBBX, BRUSH, BAL [[id number] (CPT??)] 05/09/2024 1:00 PM EST Office Visit Pulmonology - [place] [address] [facility] [address] [place] [phone] Gay Rodriguez MD [address] [place] [phone] 05/27/2024 2:15 PM EDT Office Visit [facility] Hematology Oncology [address] [place] [phone] Edmund Meraz MD [address] [place] [phone] 07/25/2024 1:00 PM EDT Office Visit Internal Medicine - [place] 175 [facility] [address] [place] [phone] Randa Yip MD 175 [facility] [address] [place] [address] 01/07/2025 12:30 PM EDT Office Visit Nephrology - [facility] [address] [place] [phone] Betito Fisher MD [address] [place] [phone] Scheduled Procedures Name Priority Associated Diagnoses Date/Ti me BRONCHOSCOPY Lung nodule 05/01/2024 8:15 AM EST BRONCHOSCOPY NODULE 1 ROBOT Lung nodule 05/01/2024 8:15 AM EST BRONCHOSCOPY NODULE 2 ROBOT Lung nodule 05/01/2024 8:15 AM EST BRONCHOSCOPY WITH FIDUCIAL PLACEMENT Lung nodule 05/01/2024 8:15 AM EST Health Maintenance Due Date Last Done Comments Diabetes: Annual Foot Exam 02/10/1960 Hepatitis A Vaccines (1 of 2 - Risk 2-dose series) 1969 Hepatitis B Vaccines (1 of 3 - Risk 3-dose series) 2010 RSV Immunization Patients 60+ Years Old (1 - Risk 60-74 years 1-dose series) 2010 Zoster Vaccines (2 of 2) 04/24/2019 02/27/2019 Abdominal Aortic Aneurysm (AAA) Screen 02/17/2022 Hepatitis C Screening 02/17/2022 Social Influencers of Health Screening 02/17/2022 Diabetes: Annual Urine Albumin-Creatinine Ratio (uACR) 02/26/2022 Diabetes: Blood Sugar Control Test (HGBA1C) 05/27/2024 11/28/2023 Diabetes: Annual Retina Eye Exam 02/11/2025 02/12/2024 Diabetes: Annual GFR (Glomerular Filtration Rate) 03/15/2025 03/15/2024, 02/16/2024, 01/25/2024, Additional history exists Hypertension/CHF/CAD Annual BMP Blood Test 03/15/2025 03/15/2024, 02/16/2024, 01/25/2024, Additional history exists Depression Screening 03/25/2025 03/25/2024 Falls Risk Assessment 03/25/2025 03/25/2024 Medicare Annual Wellness Visit 03/25/2025 03/25/2024 Colorectal Cancer Screening: FIT-DNA (Cologuard) 02/14/2026 02/14/2023 Cholesterol Screening (Lipid Panel) 11/27/2028 11/28/2023 DTaP,Tdap,and Td Vaccines (4 - Td or Tdap) 01/29/2034 01/30/2024, 01/23/2015, 02/10/2006 Pneumococcal Vaccine: 65+ Years Completed 09/19/2022, 04/27/2018, 01/23/2015, Additional history exists COVID-19 Vaccine Completed 01/30/2024, 06/2022, 01/12/2022, Additional history exists Influenza Vaccine Completed 01/30/2024, , 12/07/2021, Additional history exists HIB Vaccines Aged Out No longer eligi ble based on patient's age to complete this topic HPV Vaccines Aged Out No longer eligi ble based on patient's age to complete this topic IPV Vaccines Aged Out No longer eligi ble based on patient's age to complete this topic MMR Vaccines Aged Out No longer eligi ble based on patient's age to complete this topic Meningococcal ACWY Vaccine Aged Out N o longer eligible based on patient's age to complete this topic RSV Immunization Patients Under 20 months Aged Out No longer eligible based on patient's age to complete this topic Varicella Vaccines Aged Out No longer eligible based on patient's age to complete this topic Procedures Procedure Name Priority Date/Time Associated Diagnosis Comments CBC WITH AUTO DIFFERENTIAL Routine 04/09/2024 12:42 PM EST Autoimmune hemolytic anemia (CMS/HCC) CBC AND DIFFERENTIAL Routine 04/09/2024 12:42 PM EST Autoimmune hemolytic anemia (CMS/HCC) PROTHROMBIN TIME WITH INR Routine 04/09/2024 12:42 PM EST [facility] (current) use of anticoagulants Deep vein thrombosis (DVT) of distal vein of left lower extremity, unspecified chronicity (CMS/HCC) Antiphospholipid antibody with hypercoagulable state (CMS/HCC) CT CHEST WO CONTRAST Routine 03/21/2024 2:49 PM EST Solitary pulmonary nodule CBC WITH AUTO DIFFERENTIAL Routine 03/15/2024 10:00 AM EST Acquired hemolytic anemia, unspecified (CMS/HCC) HAPTOGLOBIN Routine 03/15/2024 10:00 AM EST Acquired hemolytic anemia, unspecified (CMS/HCC) LACTATE DEHYDROGENASE Routine 03/15/2024 10:00 AM EST Acquired hemolytic anemia, unspecified (CMS/HCC) CBC AND DIFFERENTIAL Routine 03/15/2024 10:00 AM EST Acquired hemolytic anemia, unspecified (CMS/HCC) COMPREHENSIVE METABOLIC PANEL Routine 03/15/2024 10:00 AM EST Acquired hemolytic anemia, unspecified (CMS/HCC) PROTHROMBIN TIME WITH INR Routine 03/15/2024 10:00 AM EST [facility] (current) use of anticoagulants Deep vein thrombosis (DVT) of distal vein of left lower extremity, unspecified chronicity (CMS/HCC) Antiphospholipid antibody with hypercoagulable state (CMS/HCC) CBC WITH AUTO DIFFERENTIAL Routine 02/16/2024 1:08 PM EST Acquired hemolytic anemia, unspecified (CMS/HCC) HAPTOGLOBIN Routine 02/16/2024 1:08 PM EST Acquired hemolytic anemia, unspecified (CMS/HCC) LACTATE DEHYDROGENASE Routine 02/16/2024 1:08 PM EST Acquired hemolytic anemia, unspecified (CMS/HCC) CBC AND DIFFERENTIAL Routine 02/16/2024 1:08 PM EST Acquired hemolytic anemia, unspecified (CMS/HCC) COMPREHENSIVE METABOLIC PANEL Routine 02/16/2024 1:08 PM EST Acquired hemolytic anemia, unspecified (CMS/HCC) PROTHROMBIN TIME WITH INR Routine 02/16/2024 1:08 PM EST 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 Deep vein thrombosis (DVT) of distal vein of left lower extremity, unspecified chronicity (CMS/HCC) Antiphospholipid antibody with hypercoagulable state (CMS/HCC) PROTHROMBIN TIME WITH INR Routine 01/25/2024 9:59 AM EST Acquired hemolytic anemia, unspecified (CMS/HCC) Thrombosis of right femoral vein (CMS/HCC) CBC WITH AUTO DIFFERENTIAL Routine 01/25/2024 9:56 AM EST Acquired hemolytic anemia, unspecified (CMS/HCC) CBC AND DIFFERENTIAL Routine 01/25/2024 9:56 AM EST Acquired hemolytic anemia, unspecified (CMS/HCC) HAPTOGLOBIN Routine 01/25/2024 9:56 AM EST Acquired hemolytic anemia, unspecified (CMS/HCC) LACTATE DEHYDROGENASE Routine 01/25/2024 9:56 AM EST Acquired hemolytic anemia, unspecified (CMS/HCC) COMPREHENSIVE METABOLIC PANEL Routine 01/25/2024 9:56 AM EST Acquired hemolytic anemia, unspecified (CMS/HCC) PROTHROMBIN TIME WITH INR Routine 01/11/2024 from Last 3 Months Results * (ABNORMAL) CBC auto differential (04/09/2024 12:42 PM EST) Only the most recent of4 resultswithin the time period is included. WBC 14.0(H) 4.8 - 10.8 K/mcL LAB HEMETOLOGY METHOD 04/09/2024 1:38 PM [facility] RBC 4.40(L) 4.50 - 5.50 M/mcL LAB HEMETOLOGY METHOD 04/09/2024 1:38 PM [facility] Hemoglobin 12.7(L) 13.5 - 17.5 g/dL LAB HEMETOLOGY METHOD 04/09/2024 1:38 PM [facility] Hematocrit 39.9(L) 42.0 - 54.0 % LAB HEMETOLOGY METHOD 04/09/2024 1:38 PM [facility] MCV 90.1 79.0 - 98.0 FL LAB HEMETOLOGY METHOD 04/09/2024 1:38 PM [facility] MCH 28.7 27.0 - 32.0 pcg LAB HEMETOLOGY METHOD 04/09/2024 1:38 PM [facility] MCHC 31.8(L) 32.0 - 37.0 g/dL LAB HEMETOLOGY METHOD 04/09/2024 1:38 PM [facility] RDW 16.1(H) 11.0 - 15.0 % LAB HEMETOLOGY METHOD 04/09/2024 1:38 PM [facility] Platelets 300 130 - 400 K/mcL LAB HEMETOLOGY METHOD 04/09/2024 1:38 PM [facility] MPV 11.3(H) 7.0 - 11.0 FL LAB HEMETOLOGY METHOD 04/09/2024 1:38 PM [facility] NRBC 0.0 <1.0 % LAB HEMETOLOGY METHOD 04/09/2024 1:38 PM [facility] NRBC Absolute 0.00 <0.10 K/mcL LAB HEMETOLOGY METHOD 04/09/2024 1:38 PM [facility] Neutrophils Relative 68.5 % LAB HEMETOLOGY METHOD 04/09/2024 1:38 PM [facility] Lymphocytes Relative 21.1 % LAB HEMETOLOGY METHOD 04/09/2024 1:38 PM [facility] Monocytes Relative 8.6 % LAB HEMETOLOGY METHOD 04/09/2024 1:38 PM [facility] Eosinophils Relative 0.9 % LAB HEMETOLOGY METHOD 04/09/2024 1:38 PM [facility] Basophils Relative 0.4 % LAB HEMETOLOGY METHOD 04/09/2024 1:38 PM [facility] Immature Granulocytes Relative 0.5 % LAB HEMETOLOGY METHOD 04/09/2024 1:[address] [facility] Neutrophils Absolute 9.61(H) 1.50 - 7.00 K/mcL LAB HEMETOLOGY METHOD 04/09/2024 1:[address] [facility] Lymphocytes Absolute 2.96 1.00 - 5.00 K/mcL LAB HEMETOLOGY METHOD 04/09/2024 1:[address] [facility] Monocytes Absolute 1.21(H) 0.20 - 1.00 K/mcL LAB HEMETOLOGY METHOD 04/09/2024 1:[address] [facility] Eosinophils Absolute 0.13 0.00 - 0.50 K/[facility] LAB HEMETOLOGY METHOD 04/09/2024 1:[address] [facility] Basophils Absolute 0.06 0.00 - 0.20 K/mcL LAB HEMETOLOGY METHOD 04/09/2024 1:[address] [facility] Immature Granulocytes Absolute 0.07(H) 0.00 - 0.03 K/[facility] LAB HEMETOLOGY METHOD 04/09/2024 1:38 PM [facility] Blood Venous blood specimen / Unknown Venipuncture / Unknown 04/09/2024 12:42 PM EST 04/09/2024 1:32 PM EST Olaframbecca Meraz MD LAB BLOOD O RDERABLES [facility] [address] [place] [address], * (ABNORMAL) Prothrombin time with INR (04/09/2024 12:42 PM EST) Only the most recent of5 resultswithin the time period is included. Protime 30.4(H) 10.6 - 13.9 sec LAB COAGULATION METHOD 04/09/2024 1:[address] [facility] INR 2.4 LAB COAGULATION METHOD 04/09/2024 1:[address] [facility] Blood Venous blood specimen / Unknown Venipuncture / Unknown 04/09/2024 12:42 PM EST 04/09/2024 1:31 PM EST Randa Yip MD LAB BLOOD ORDERABLES [facility] [address] [place] [address], * CT Chest wo Contrast (03/21/2024 2:49 PM EST) Anatomical Region Laterality Modality Body Computed Tomogra phy 03/28/2024 12:4 3 PM EST Impressions 03/28/2024 12:45 PM EST Two increased, spiculated left lower lobe nodules suspicious for synchronous primary lung neoplasms. ??No metastatic disease in the chest. -------- FINAL REPORT -------- Dictated By: RASHAAD IRIZARRY Dictated Date: 03/28/2024 12:43 ET Assigned Physician: RASHAAD IRIZARRY Reviewed and Electronically Signed By: RASHAAD IRIZARRY Signed Date: 03/28/2024 12:45 ET Workstation ID: [id number] Transcribed By: Self Edit Transcribed Date: 03/28/2024 [...] seen throughout the bones. Procedure Note Rashaad Irizarry MD - 03/28/2024 PROCEDURE: Chest CT INDICATION: [...] -------- FINAL REPORT -------- Dictated By: RASHAAD IRIZRARY Dictated Date: 03/28/2024 12:43 ET Assigned Physician: RASHAAD IRIZARRY Reviewed and Electronically Signed By: RASHAAD IRIZARRY Signed Date: 03/28/2024 12:45 ET Workstation ID: [id number] Transcribed By: Self Edit Transcribed Date: 03/28/2024 12:43 ET Vern Hammond MD IMG CT PROCEDURES * (ABNORMAL) Lactate dehydrogenase (03/15/2024 10:00 AM EST) Only the most recent of3 resultswithin the time period is included. LDH 270(H) 120 - 246 unit/L LAB CHEMISTRY METHOD 03/15/2024 11:[address] [facility] Blood Venous blood specimen / Unknown Venipuncture / Unknown 03/15/2024 10:00 AM EST 03/15/2024 11:20 AM EST Edmund Meraz MD LAB BLOOD O RDERABLES Performing Organization Address [facility] Co de Phone Number [facility] [address] [place] [address], [place] [phone] * Haptoglobin (03/15/2024 10:00 AM EST) Only the most recent of3 resultswithin the time period is included. Haptoglobin 49 16 - 200 mg/dL LAB CHEMISTRY METHOD 03/15/2024 11:[address] [facility] Blood Venous blood specimen / Unknown Venipuncture / Unknown 03/15/2024 10:00 AM EST 03/15/2024 11:20 AM EST Edmund Meraz MD LAB BLOOD O RDERABLES Performing Organization Address [facility] Co de Phone Number [facility] [address] [place] [address], [place] [phone] * (ABNORMAL) Comprehensive metabolic panel (03/15/2024 10:00 AM EST) Only the most recent of3 resultswithin the time period is included. Sodium 133 133 - 145 mmol/L LAB CHEMISTRY METHOD 03/15/2024 11:[address] [facility] Potassium 4.5 3.5 - 5.5 mmol/L LAB CHEMISTRY METHOD 03/15/2024 11:[address] [facility] Chloride 103 96 - 110 mmol/L LAB CHEMISTRY METHOD 03/15/2024 11:41 AM [facility] CO2 26 21 - 32 mmol/L LAB CHEMISTRY METHOD 03/15/2024 11:41 AM [facility] Anion Gap 4 3 - 11 LAB CHEMISTRY METHOD 03/15/2024 11:41 AM [facility] Glucose 193(H) 70 - 100 mg/dL LAB CHEMISTRY METHOD 03/15/2024 11:41 AM [facility] BUN 24 5 - 25 mg/dL LAB CHEMISTRY METHOD 03/15/2024 11:41 AM [facility] Creatinine 1.63(H) 0.70 - 1.30 mg/dL LAB CHEMISTRY METHOD 03/15/2024 11:41 AM [facility] eGFR 44(L) >=60 mL/min/1. 73m2 LAB CHEMISTRY METHOD 03/15/2024 11:41 AM [facility] Comment:Calculation based on the??Chronic Kidney Disease Epidemiology Collaboration (CKD-EPI) equation refit??without adjustment for race. BUN/Creatinine Ratio 14.7 LAB CHEMISTRY METHOD 03/15/2024 11:41 AM [facility] Calcium 8.8 8.5 - 10.5 mg/dL LAB CHEMISTRY METHOD 03/15/2024 11:41 AM [facility] AST (SGOT) 18 10 - 42 unit/L LAB CHEMISTRY METHOD 03/15/2024 11:41 AM [facility] ALT (SGPT) 31 10 - 60 unit/L LAB CHEMISTRY METHOD 03/15/2024 11:41 AM [facility] Alkaline Phosphatase 75 42 - 121 unit/L LAB CHEMISTRY METHOD 03/15/2024 11:41 AM [facility] Total Protein 6.8 6.0 - 8.0 g/dL LAB CHEMISTRY METHOD 03/15/2024 11:41 AM [facility] Albumin 3.4 3.2 - 5.0 g/dL LAB CHEMISTRY METHOD 03/15/2024 11:41 AM EST [facility] Total Bilirubin 0.9 0.0 - 1.4 mg/dL LAB CHEMISTRY METHOD 03/15/2024 11:[address] [facility] Blood Venous blood specimen / Unknown Venipuncture / Unknown 03/15/2024 10:00 AM EST 03/15/2024 11:20 AM EST [facility] BLOOD O RDERABLES [facility] [address] [place] [address], from Last 3 Months Advance Directives Documents on File Type Date Recorded 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
--- OUTSIDE RECORDS SUMMARY | 2024-04-09 14:17 | XMS_ITS | Clinical Summary ---
Author Organization [facility] Address [address] [place] [address] Care Team Providers Care Corporate Compliance Director Name Role Phone Randa Yip MD Primary Care Provider [phone] Allergies Active Allergy Reactions Criticality Noted Date Comments Hydralazine 01/20/2021 Pravastatin 08/04/2016 Jaundice Medications Medication Sig Dispensed Refills Start Date End Date Status furosemide (LASIX) 20 MG tablet Take 1 tablet (20 mg total) by mouth daily. 0 Active folic acid (FOLVITE) tablet 1 mg Take 1 tablet (1 mg total) by mouth daily. 0 Active omeprazole (PRILOSEC) 20 MG capsule Take 1 capsule (20 mg total) by mouth daily. 0 Active clopidogrel (PLAVIX) 75 MG tablet Take 1 tablet (75 mg total) by mouth daily. 0 Active warfarin (COUMADIN) 1 MG tablet 5mg daily 0 12/16/2016 Active ANORO ELLIPTA 62.5-25 MCG/INH AEPB 1 each by Inhaled route daily. 11 06/09/2017 Active melatonin 3 MG TABS tablet Take 1 tablet (3 mg total) by mouth every night at bedtime. 0 Active amLODIPine (NORVASC) tablet 10 mg Take 1 tablet (10 mg total) by mouth daily. 6 11/19/2017 Active dulaglutide (TRULICITY) 0.75 MG/0.5ML subcutaneous pen-injector Inject 0.75 mL (1.125 mg total) under the skin once a week. 0 Active glipiZIDE (GLUCOTROL) tablet 5 mg Take 1 tablet (5 mg total) by mouth daily. 0 Active Magnesium Oxide 400 (241.3 Mg) MG TABS tablet Take 1 tablet (400 mg total) by mouth daily. 0 Active ezetimibe (ZETIA) tablet 10 mg Take 1 tablet (10 mg total) by mouth daily. 0 Active lisinopril (PRINIVIL,ZESTRIL) tablet 20 mg Take 1 tablet (20 mg total) by mouth daily. 5 02/18/2019 Active atenolol (TENORMIN) tablet 25 mg Take 1 tablet (25 mg total) by mouth daily. 0 Active predniSONE (DELTASONE) tablet 10 mg Take 1 tablet (10 mg total) by mouth daily. 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 Eczema 07/08/2016 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 Ulcer of ankle 06/06/2016 Hypercholesterolemia 08/13/2015 Aortic valve sclerosis 02/20/2014 Malignant neoplasm of overlapping sites of bladd er 02/20/2014 CKD (chronic kidney disease) stage 3, GFR 30-59 ml/min 02/19/2013 Steatosis of liver 02/19/2013 Asymptomatic varicose veins of lower extremity 1 04/17/2011 Microscopic hematuria 02/07/2012 Family History Medical History Relation Name Comments [...] file Not on file Not on file Last Filed Vital Signs Vital Sign Reading Time Taken Comments Blood Pressure 127/41 11/29/2023 2:56 PM EDT Pulse 108 11/29/2023 2:56 PM EDT Temperature 36.8 ??C (98.2 ??F) 11/29/2023 2:56 PM ED T Respiratory Rate - - Oxygen Saturation 97% 11/29/2023 2:56 PM EDT Inhaled Oxygen Concentration - - Weight 111.1 kg (245 lb) 11/29/2023 2:56 PM EDT Height 180.3 cm (5' 11 ) 11/29/2023 2:56 PM EDT Body Mass Index 34.17 11/29/2023 2:56 PM EDT Plan of Treatment Health Maintenance Due Date Last Done Comments Hepatitis C Screening 1950 COVID-19 Vaccine (#1) 1955 Depression Screening 1962 BMI Counseling 02/10/1968 Preventative Health Evaluation 02/10/1968 Shingrix-Zoster Vaccine (1 of 2) 1969 Colon Cancer Screening (Colonoscopy) 1995 RSV Adult > 60+ Yrs or (1 - Risk 60-74 years 1-dose series) 2010 Fall Risk Assessment 2015 Pneumococcal Vaccine (4 of 4 - PPSV23 or PCV20) 01/24/2020 04/27/2018, 01/23/2015, 02/10/2011 Influenza Vaccine (#1) 2023 2, 12/22/2020, 12/20/2020, Additional history exists DTap / Tdap / Td (2 - Td or Tdap) 01/23/2025 01/23/2015 Hepatitis B Vaccines Aged Out No long er eligible based on patient's age to complete this topic RSV Ped < 20 months Aged Out No longe r eligible based on patient's age to complete this topic Care Teams Corporate Compliance Director Relationship Specialty Start Date End Date Randa Yip MD [address] [phone] PCP - General Internal Medicine 02/11/20
--- OUTSIDE RECORDS SUMMARY | 2024-04-09 14:17 | XMS_ITS | Encounter Summary ---
Author Organization [facility] Address [address] [place] [address] Care Team Providers Care Professor Of Astronomy Name Role Phone Randa Yip MD Primary Care Provider [phone] Encounter Details Date Type Department Care Team Description 04/10/2018 Nurse Only [facility] Oncology Services [address] [place] [address] Faizan Eugene RN Social History Tobacco Use Types Packs/Day Years Used Date Smoking Tobacco: Former Alcohol Use Standard Drinks/Week Comments No 0 (1 standard drink = 0.6 oz pur e alcohol) Sex and Gender Information Value Date Recorded Sex Assigned at Not on file Gender Identity Not on file Sexual Orientation Not on file Job Start Date Occupation Industry Not on file Not on file Not on file documented as of this encounter Progress Notes * Faizan Eugene RN - 04/10/2018 9:14 AM EST NN spoke with Bernadette at coumadin clinic at [address] [facility] and confirmed that patient needed to be bridge with Lovenox prior to Biopsy scheduled with Dr. Aragon. Bernadette will manage this and call patient. Faizan Eugene RN documented in this encounter Plan of Treatment Not on file documented as of this encounter Visit Diagnoses Not on filedocumented in this encounter Care Teams Professor Of Astronomy Relationship Specialty Start Date End Date Randa Yip MD [address] [place] [address] [address] [place] [phone] PCP - General Internal Medicine 02/11/20 documented as of this encounter
--- OUTSIDE RECORDS SUMMARY | 2024-04-09 14:18 | XMS_ITS | Continuity of Care Document ---
Author Organization [place] - [facility], [facility] Address [address] [place] [address] Assessment Encounter Date Assessment Date Assessment LastModified [...] Sensorineur al hearing loss of bilateral ears 320167550 Active 2024 RUBINA KEARNEY, AUD [address] [facility], [place], [phone], [facility] - [facility] 13:06:55 Disorder of left Eustachian tube 9739084161160 109 Active 2024 WANDA [facility], PA-C [address] [facility], [place], [phone], [facility] 14:49:25 Dysfunction of right eustachian tube 9742178045827 101 Active 2024 WANDA [facility], [place]- [address] [facility], [place], [phone], [facility] 14:49:39 Problem Notes None recorded. Procedures Surgical History Date Name Laterality Status Provider Name and Address Organization Details Recorded Time 03/18/2024 Comp Audio with Tymps (08802 & 12340) completed RUBINA KEARNEY, AUD [address] [facility] [address], [place], [phone], [facility] 03/18/2024 13:06:39 Imaging Results None recorded. Procedure Notes None recorded. Medical Equipment None [...] Updated DateTime 03/18/2024 180.34 cm 34.6 kg/m2 414807.91 g Aminah Monterroso [place] - [facility] 03/18/2024 13:21:03 Social History None recorded. Functional Status None recorded. Mental Status None recorded. Family History Nothing Reported. Medical History No medical history recorded. Past Encounters Encounter ID Performer Location Encounter Start Date Encounter Closed Date Diagnosis/Indication Diagnosis SNOMED-CT Code Diagnosis ICD10 Code Diagnosis Note [id number] WANDA LUGO PA-C [facility] of [address] [phone] 03/18/2024 12:24:16 03/18/2024 13:39:19 Sensorineural hearing loss of bilateral ears 776508702 H90.3 Audiologic al evaluation results:Ri ght ear:{{Norm [...] seal*}} Dysfunctio n of right eustachian tube [id number] 670717 H69.91 Health Concerns Section Related Observation LastModified by Organization Detai ls LastModified Time None Recorded Concern Status LastModified by Organization Details LastModified Time None Recorded Payers Encounter Date Sequence Insurance Name Policy Number Policy Bone Covered Member ID Bone Member ID Guarantor Name 03/18/2024 1 [facility] - DOS ON OR AFTER 2022 - ONE CARE (MEDICARE REPLACEMENT/ADV ANTAGE - HMO) Maycol Leonila [id number] Maycol Leonila Notes Date Note Type Note Provider Name [...] more on the left than the right; 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 No history of recurrent otitis or otologic surgeries. No history of otalgia nor otorrhea. WANDA LUGO PA-C [address] [place] [address], [phone], [place] - [facility] 03/18/2024 14:50:44
--- OUTSIDE RECORDS SUMMARY | 2024-04-09 14:18 | XMS_ITS | Encounter Summary ---
Author Organization [facility] Address [address] [place] [address] Care Team Providers Care Manager Stone Name Role Phone Randa Yip MD Primary Care Provider [phone] Encounter Details Date Type Department Care Team ([facility] st Contact Info) Description 04/08/2024 Telephone Pulmonology - [place] [address] [facility] [address] [place] [phone] Dorina Maya MA Social History Tobacco Use Types Packs/Day Years [...] as of this encounter Progress Notes * Dorina Maya MA - 04/08/2024 1:44 PM EST The patient has an appointment with Dr styles April 16 at 2:00 p.m. with [employer] tool and die maker/designer Bernadette from the [facility] Coumadin Clinic was notified of upcoming surgery without a date sent over fax at1:00 p.m. to [facility] follow up with [facility] will follow up in 2 days for PA # documented in this encounter Plan of Treatment Upcoming Encounters Date Type Department Care Team (Latest Contact Info) Description 04/10/2024 12:30 PM EST Procedure visit Pulmonolgy - [place] [address] [facility] [address] [place] [address] Edy Servin 04/19/2024 1:00 PM EST Pre-Admission Testing [facility] Pre-Admission Testing [address] [place] [phone] 05/01/2024 8:15 AM EST Hospital Encounter [facility] OR [address] [place] [phone] Gay Rodriguez MD [address] [place] [id number] 05/01/2024 8:15 AM EST - 05/01/2024 10:00 AM EST Surgery [facility] OR [address] [place] [phone] Gay Rodriguez MD [address] [place] [id number] ROBOTIC ASSISTED BRONCHOSCOPY W. FNA, TBBX, BRUSH, BAL [[id number] (CPT??)] 05/09/2024 1:00 PM EST Office Visit Pulmonology - [place] [address] [facility] [address] [place] [phone] Gay Rodriguez MD [address] [place] [phone] 05/27/2024 2:15 PM EDT Office Visit [facility] Hematology Oncology [address] [place] [address] Edmund Meraz MD [address] [place] [phone] 07/25/2024 1:00 PM EDT Office Visit Internal Medicine - [place] [address] [facility] [address] [place] [address] Randa Yip MD [address] [facility] [address] [place] [phone] 01/07/2025 12:30 PM EDT Office Visit Nephrology - [place] [address] [place] [address] Betito Fisher MD [address] [facility] [address] [place] [address] Scheduled Procedures Name Priority Associated Diagnoses Date/Ti me BRONCHOSCOPY Lung nodule 05/01/2024 8:15 AM EST BRONCHOSCOPY NODULE 1 ROBOT Lung nodule 05/01/2024 8:15 AM EST BRONCHOSCOPY NODULE 2 ROBOT Lung nodule 05/01/2024 8:15 AM EST BRONCHOSCOPY WITH FIDUCIAL PLACEMENT Lung nodule 05/01/2024 8:15 AM EST documented as of this encounter Visit Diagnoses Not on filedocumented in this encounter Additional Health Concerns Assessment Noted Time PHQ-9 Depression Total Score: 0 03/25/19 25 3:34 PM EST documented as of this encounter Care Teams Manager Stone Relationship Specialty Start Date End Date Randa Yip MD [address] [phone] PCP - General Internal Medicine 02/16/24 documented as of this encounter
--- OUTSIDE RECORDS SUMMARY | 2024-04-09 14:18 | XMS_ITS | Encounter Summary ---
Author Organization [facility] Address [address] [place] [address] Care Team Providers Care Welder Explosion Name Role Phone Randa Yip MD Primary Care Provider [phone] Reason for Referral * Consultation (Routine) - Closed Specialty Diagnoses / Procedures Referred By Юлия casanova Referred To Contact Pulmonology Diagnoses Multiple pulmonary nodules Sarah Green MD [address] [address] [facility] Interventional Pulmonology [place] [address] [address] Referral ID Status Reason Start Date Expiration Date V isits Requested Visits Authorized [id number] Closed Specialty Services Required 04/01/2024 04/01/2025 1 1 * Therapy (Routine) - Authorized Specialty Diagnoses / Procedures Referred By Юлия casanova Referred To Contact Pulmonology Diagnoses Multiple pulmonary nodules Procedures Pulmonary function testing: Carbon Monoxide Diffusing Capacity, Nitrogen Wash Out, Spirometry with Bronchodilator Sarah Green MD [address] [address] [facility] Pulmonary [address] [place] [address] Referral ID Status Reason Start Date Expiration Date V isits Requested Visits Authorized [id number] Authorized 04/01/2024 04/01/2025 1 1 * Imaging (Routine) - Pending Review Specialty Diagnoses / Procedures Referred By Contac t Referred To Contact Radiology Diagnoses Multiple pulmonary nodules Procedures PET CT Skull to Mid Thigh Initial Sarah Green MD [address] [address] Referral ID Status Reason Start Date Expiration Date V isits Requested Visits Authorized [id number] Pending Review 04/01/2024 04/01/2025 1 1 Reason for Visit * Reason Comments Follow-up Ref by Dr. Hammond re: worsening LLL Nodules, Chest CT 02/21/24 * Imaging (Routine) - Pending Review Specialty Diagnoses / Procedures Referred By Contac t Referred To Contact Radiology Diagnoses Multiple pulmonary nodules Procedures PET CT Skull to Mid Thigh Initial Sarah Green MD [address] [address] Referral ID Status Reason Start Date Expiration Date V isits Requested Visits Authorized [id number] Pending Review 04/01/2024 04/01/2025 1 1 Encounter Details Date Type Department Care Team (Latest Contact Info) Description 04/01/2024 11:00 AM EST Office Visit Thoracic Surgery - [place] [address] [phone] Sarah Green MD [address] [address] Multiple pulmonary nodules (Primary Dx); Antiphospholipid antibody with hypercoagulable state (CMS/HCC); 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; Chronic obstructive pulmonary disease, unspecified COPD type (CMS/HCC) Social History Tobacco Use Types Packs/Day Years [...] on file documented as of this encounter Last Filed Vital Signs Vital Sign Reading Time Taken Comments Blood Pressure 149/92 04/01/2024 10:55 AM EST Pulse 61 04/01/2024 10:55 AM EST Temperature 36.7 ??C (98.1 ??F) 04/01/2024 10:[address] Respiratory Rate 16 04/01/2024 10:55 AM EST Oxygen Saturation 98% 04/01/2024 10:55 AM EST 2L Inhaled Oxygen Concentration - - Weight 116 kg (255 lb 12.8 oz) 04/01/2024 10:55 AM EST Height 180.3 cm (5' 11 ) 04/01/2024 10:55 AM EST Body Mass Index 35.68 04/01/2024 10:55 AM EST documented in this encounter Progress Notes * Sarah Green MD - 04/01/2024 11:16 AM ESTAssociated Problem(s): Multiple pulmonary nodules 74-year-old man with multiple comorbidities including antiphospholipid [...] general and how their size, shape, and waste/materials exchange specialist time affect her level of suspicion for malignancy. Given that these are spiculated nodules that have increased in size over time the suspicion ishigh. I also discussed the diagnosis, staging, and [...] office for tomorrow. All questions were answered. * Sarah Green MD - 04/01/2024 11:00 AM EST NEW PATIENT CONSULTATION Name: Maycol Keen : 1950 Date of Visit: 04/01/2024 Referring Physician: Vern Hammond MD Primary Care Physician: Randa Yip MD Chief Complaint Patient presents with Follow-up Ref by Dr. Hammond re: worsening LLL Nodules, Chest CT 02/21/24 HPI Mr. Keen is a 74 y.o. male who presents for outpatient consultation regarding the management of suspicious pulmonary nodules in the setting of significant comorbidities. 74-year-old man with antiphospholipid syndrome, autoimmune hemolytic anemia, chronic kidney disease, obstructive sleep apnea, DVT on Coumadin, and COPD who has been followed at an outside hospital with serial CT scans and tells me he recently had COVID and actually had a CT scan here at [facility] without real significant symptoms from COVID. At any rate a CT scan of the chest was done on 03/21/2024 reviewed and interpreted by me directly and compared with multiple previous from this institution and outside institutions shows a 14 mm spiculated pulmonary nodule on the fissure in the superior segmentof the left lower lobe previously measured 6 mm and a 9 mm left lower lobe pulmonary nodule which pr eviously measured 4 mm towards the base. There is no mediastinal lymphadenopathy and no pleural fluid. He is on 2 L of oxygen with activity and does obviously have shortness of breath with activity. He uses CPAP at night without oxygen. He denies any unintentional weight loss, decreased appetite, fevers, chills, soaking sweats, or fatigue. He denies any chest pain, cough, or hemoptysis. He denies any neurologic symptoms. 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 DX:Acute ischemic heart disease (HCC) Allergic rhinitis 10/21/2016 DX:Allergic rhinitis Anemia DX:Anemia Antiphospholipid syndrome (CMS/HCC) 10/21/2016 DX:Antiphospholipid syndrome (HCC) Aortic valve sclerosis 02/20/2014 DX:Aortic valve sclerosis Asymptomatic varicose veins of lower extremity 02/15/2012 DX:Asymptomatic varicose veins of lower extremity Autoimmune hemolytic anemia (CMS/HCC) 08/04/2016 DX:Autoimmune hemolytic anemia (HCC) Chronic obstructive pulmonary disease (CMS/HCC) 10/21/2016 DX:Chronic obstructive pulmonary disease (HCC) CKD (chronic kidney disease) stage 3, GFR 30-59 ml/min (CMS/HCC) 02/19/2013 DX:CKD (chronic kidney disease) stage 3, GFR 30-59 ml/min (HCC) Deep vein thrombosis (DVT) of lower extremity (CMS/HCC) 10/21/2016 DX:Deep vein thrombosis (DVT) of lower extremity ([facility]) Eczema 07/08/2016 DX:Eczema FH: emphysema DX:FH: emphysema Glaucoma 02/15/2012 DX:Glaucoma Heart murmur DX:Heart murmur Hyperlipidemia 05/04/2017 DX:Hyperlipidemia Hypertension 12/16/2016 DX:Hypertension Insomnia 09/26/2017 DX:Insomnia 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 DX:Lichen planus Malignant neoplasm of urinary bladder (CMS/HCC) 02/20/2014 DX:Malignant neoplasm of urinary bladder (HCC) Microscopic hematuria 02/07/2012 DX:Microscopic hematuria Multiple pulmonary nodules 10/21/2016 DX:Multiple pulmonary nodules Obstructive sleep apnea syndrome 01/09/2017 DX:Obstructive sleep apnea syndrome Steatosis of liver 02/19/2013 DX:Steatosis of liver Ulcer of ankle (CMS/HCC) 06/06/2016 DX:Ulcer of ankle (HCC) @ALL@ Current Outpatient Medications Medication Sig Dispense Refill amLODIPine (NORVASC) 10 mg tablet TAKE 1 TABLET BY MOUTH EVERY DAY 90 tablet 1 atenoloL (TENORMIN) 25 mg tablet TAKE 1 TABLET BY MOUTH EVERY DAY 90 tablet 1 clopidogreL (PLAVIX) 75 mg tablet Take 1 tablet (75 mg total) by mouth daily. ezetimibe (ZETIA) 10 mg tablet Take 1 tablet (10 mg total) by mouth daily. folic acid (FOLVITE) 1 mg tablet Take 1 tablet (1 mg total) by mouth daily. furosemide (LASIX) 20 mg tablet TAKE 1 TABLET BY MOUTH EVERY DAY 90 tablet 1 lisinopriL (PRINIVIL,ZESTRIL) 20 mg tablet Take 1 tablet (20 mg total) by mouth daily. magnesium oxide (MAG-OX) 400 mg (241.3 elemental magnesium) tablet TAKE 1 TABLET BY MOUTH EVERY DAY90 tablet 1 melatonin 3 mg tablet Take 1 tablet (3 mg total) by mouth every night at bedtime. omeprazole (PriLOSEC) [address] capsule Take 1 capsule (20 mg total) by mouth daily. predniSONE (DELTASONE) 10 mg tablet Take 1 tablet (10 mg total) by mouth daily. Trulicity 0.75 mg/0.5 mL pen injector injection INJECT 1 DOSE INTO THE SKIN ONCE A WEEK 2 mL 5 umeclidinium-vilanteroL (ANORO ELLIPTA) 62.5-25 mcg/actuation inhaler 1 puff by Inhaled route daily. warfarin (COUMADIN) 1 mg tablet 5mg daily No current facility-administered medications for this visit. Social History Tobacco Use Smoking status: Former Smokeless tobacco: Never Substance Use Topics Alcohol use: No Drug use: No Social History Social History Narrative Not on file Family History Problem Relation Name Age of Onset Cardiomyopathy Mother Cardiomyopathy Sister Cardiomyopathy Brother Review of Systems General - Negative for: weight loss/gain, fatigue, fever, chills, weakness, difficulty sleeping Head - Negative for: headache, trauma Eyes - Negative for: acute vision change, blurred vision, double vision, eye pain, conjunctival erythema, eyelid pain/swelling/erythema Ears - Negative for: acute change in hearing, tinnitus, ear pain, ear drainage Nose - Negative for: nasal discharge, nosebleed, itching, sinus pain Mouth/Throat - Negative for: sore throat, swollen throat, dry mouth, hoarseness, dysphagia, odynophagia, oral lesions Neck - Negative for: pain, stiffness, swelling, mass/lumps, swollen glands Cardiovascular - Negative for: chest pain/pressure, exertional chest pain, palpitations, lightheadedness, dizziness, orthopnea, extremity edema Respiratory -as above Gastrointestinal - Negative for: abdominal pain, abdominal distention, bloating, nausea, vomiting, early satiety, diarrhea, constipation, BRBPR, melena, poor appetite Genitourinary - Negative for: dysuria, hematura, urinary frequency, urinary urgency, incontinence Musculoskeletal - Negative for: muscle or joint pain, stiffness, back pain, joint swelling or erythema Neurologic - Negative for: dizziness, seizures, weakness, numbness, tingling, tremor, dysarthria, facial droop Hematologic - Negative for: easy bruising, easy bleeding, ecchymosis, petechiae Endocrine - Negative for: polyuriua, polydipsia, heat or cold intolerance Lymphatic - Negative for: swollen nodes, unexplained lumps/bumps in neck/axillae/groin Skin - Negative for: rashes, lumps, itching, dryness, color change, hair/nail changes Psychiatric - Negative for: depression, anxiety, nervousness, stress, memory change, SI/HI Physical Exam Vitals: 04/01/24 1055 BP: (!) 149/92 BP Location: Left arm Patient Position: Sitting BP Cuff Size: Adult long Pulse: 61 Resp: 16 Temp: 36.7 ??C (98.1 ??F) TempSrc: Temporal SpO2: 98% Weight: 116 kg (255 lb 12.8 oz) Height: 1.803 m (71 ) General: Patient is sitting comfortably in no acute distress, well developed, well nourished Head: Normocephalic, atraumatic, symmetric Eyes: Sclera anicteric, eyelids without edema or erythema, +EOMS intact ENT: Oral mucosa and tongue are moist without lesions or exudates Neck: Soft, supple, symmetric, trachea midline, no crepitus, no mass visualized or palpated Cardiovascular: Regular rate and rhythm, no murmur/rubs/gallops, BUE and BLE without edema, no calftenderness bilaterally Respiratory: Lungs CTAB, breathing nonlabored, speaking in full sentences, on room air. No use of accessory muscles. No obvious chest wall abnormality or deformity Gastrointestinal: Soft, non-tender, non-distended, +normoactive bowel sounds. Lymphatic: no cervical, supraclavicular, infraclavicular, or other lymphadenopathy noted Neurological: Alert and oriented x 3, neurologic exam is grossly normal Psychiatric: No agitation, appropriate affect Pathology None Micro / Labs Reviewed Radiology Reviewed and interpreted by me directly as above I personally viewed the following imaging studies, in addition to reviewing the dictated report from the reading radiologist Assessment/Plan Problem List Items Addressed This Visit Respiratory Chronic obstructive pulmonary disease (CMS/HCC) Multiple pulmonary nodules - Primary 74-year-old man with multiple comorbidities including antiphospholipid [...] general and how their size, shape, and waste/materials exchange specialist time affect her level of suspicion for malignancy. Given that these are spiculated nodules that have increased in size over time the suspicion ishigh. I also discussed the diagnosis, staging, and [...] office for tomorrow. All questions were answered. Relevant Orders PET CT Skull to Mid Thigh Initial Pulmonary function testing: Carbon Monoxide Diffusing Capacity, Nitrogen Wash Out, Spirometry with Bronchodilator Ambulatory referral to Interventional Pulmonology Hematologic Antiphospholipid antibody with hypercoagulable state (CMS/HCC) Other shelter (current) use of anticoagulants Total time spent on date of this encounter: 67 minutes. Reviewing patient's chart, Independently reviewing current/past imaging, Visit with the patient, Counseling and educating patient/family on diagnosis, Discussion of ongoing management, and Documenting clinical information in the patient's medical record Sarah Green MD on 04/01/2024 at 11:19 AM EST CC: Vern Hammond MD Uma D Chaganti, MD documented in this encounter Plan of Treatment Upcoming Encounters Date Type Department Care Team (Latest Contact Info) Description 04/10/2024 12:30 PM EST Procedure visit Pulmonolgy - [address] [place] [address] Edy Servin 04/19/2024 1:00 PM EST Pre-Admission Testing [facility] Pre-Admission Testing [address] [place] [phone] 05/01/2024 8:15 AM EST Hospital Encounter [facility] OR [address] [place] [phone] Gay Rodriguez MD [address] [place] [id number] 05/01/2024 8:15 AM EST - 05/01/2024 10:00 AM EST Surgery [facility] OR [address] [place] [phone] Gay Rodriguez MD [address] [place] [id number] ROBOTIC ASSISTED BRONCHOSCOPY W. FNA, TBBX, BRUSH, BAL [[id number] (CPT??)] 05/09/2024 1:00 PM EST Office Visit Pulmonology - [place] 299 [facility] 410 [place] [phone] Gay Rodrigeuz MD [address] [place] [phone] 05/27/2024 2:15 PM EDT Office Visit [facility] Hematology Oncology [address] [place] [phone] Edmund Meraz MD [address] [place] [phone] 07/25/2024 1:00 PM EDT Office Visit Internal Medicine - [place] 175 [facility] 200 [place] [phone] Randa Yip MD 175 [facility] 200 [place] [phone] 01/07/2025 12:30 PM EDT Office Visit [facility]rology [facility] [address] [place] [address] Betito Fisher MD [address] [facility] [address] [place] [address] Scheduled Orders Name Type Priority Associated Diagnoses Orde r Schedule PET CT Skull to Mid Thigh Initial Imaging Routine Multiple pulmonary nodules Expected: 04/01/2024, Expires: 04/01/2025 Pulmonary function testing: Carbon Monoxide Diffusing Capacity, Nitrogen Wash Out, Spirometry with Bronchodilator PFT Routine Multiple pulmonary nodules 1 Occurrences starting 04/01/2024 until 04/01/2025 Scheduled Procedures Name Priority Associated Diagnoses Date/Ti me BRONCHOSCOPY Lung nodule 05/01/2024 8:15 AM EST BRONCHOSCOPY NODULE 1 ROBOT Lung nodule 05/01/2024 8:15 AM EST BRONCHOSCOPY NODULE 2 ROBOT Lung nodule 05/01/2024 8:15 AM EST BRONCHOSCOPY WITH FIDUCIAL PLACEMENT Lung nodule 05/01/2024 8:15 AM EST Scheduled Referrals Name Type Priority Associated Diagnoses Order Schedule Ambulatory referral to Interventional Pulmonology Outpatient Referral Routine Multiple pulmonary nodules 1 Occurrences starting 04/01/2024 until 04/01/2025 documented as of this encounter Visit Diagnoses Diagnosis Multiple pulmonary nodules- Primary Other diseases of lung, not elsewhere classified Antiphospholipid antibody with hypercoagulable state (CMS/HCC) 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
--- OUTSIDE RECORDS SUMMARY | 2024-04-09 14:18 | XMS_ITS | Encounter Summary ---
Author Organization [facility] Address [address] [place] [address] Care Team Providers Care Clinical Engineering Manager Name Role Phone Randa Yip MD Primary Care Provider [phone] Encounter Details Date Type Department Care Team (Latest Contact Info) Description 03/15/2024 Anticoagulation - Warfarin Visit Coumadin [facility] 175 [address] [place] [phone] Bernadette Conner LPN Deep vein thrombosis (DVT) of distal vein of left lower extremity, unspecified chronicity (CMS/HCC) (Primary Dx); [facility] (current) use of anticoagulants; Antiphospholipid antibody with hypercoagulable state (CMS/HCC) Social History Tobacco Use Types Packs/Day [...] on file documented as of this encounter Plan of Treatment Upcoming Encounters Date Type Department Care Team (Latest Contact Info) Description 04/10/2024 12:30 PM EST [facility] 175 [facility] 200 [place] [phone] Edy Servin 04/19/2024 1:00 PM EST Pre-Admission Testing [facility] Pre-Admission Testing [address] [place] [phone] 05/01/2024 8:15 AM EST Hospital Encounter [facility] OR [address] [place] [address], [place] [phone] Gay Rodriguez MD [address] [place] [address] 05/01/2024 8:15 AM EST - 05/01/2024 10:00 AM EST Surgery [facility] OR [address] [place] [address], [place] [phone] Gay Rodriguez MD [address] [place] [phone] ROBOTIC ASSISTED BRONCHOSCOPY W. FNA, TBBX, BRUSH, BAL [[id number] (CPT??)] 05/09/2024 1:00 PM EST Office Visit Pulmonology - [place] 299 [facility] 410 [place] [phone] Gay Rodriguez MD [address] [place] [phone] 05/27/2024 2:15 PM EDT Office Visit [facility] Hematology Oncology [address] [place] [phone] Edmund Meraz MD [address] [place] [phone] 07/25/2024 1:00 PM EDT Office Visit Internal Medicine - [place] 175 [facility] 200 [place] [phone] Randa Yip MD 175 [facility] 200 [place] [phone] 01/07/2025 12:30 PM EDT [facility] [address] [facility] [facility] [place] [phone] Betito Fisher MD [address] 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
--- OUTSIDE RECORDS SUMMARY | 2024-04-09 14:18 | XMS_ITS | Encounter Summary ---
Author Organization [facility] Address [address] [place] [address] Care Team Providers Care Sign Painter Name Role Phone Randa Yip MD Primary Care Provider [phone] Reason for Visit * Reason Comments Annual Exam Encounter Details Date Type Department Care Team (Late st Contact Info) Description 03/25/2024 3:30 PM EST Office Visit Internal Medicine - [place] [address] [phone] Randa Yip MD [address] [phone] Type 2 diabetes mellitus without complication, without long-term current use of insulin ([facility]) (Primary Dx); Encounter for subsequent annual wellness visit (AWV) in Medicare patient; Obstructive sleep apnea syndrome; Autoimmune hemolytic anemia (CMS/HCC); Chronic obstructive pulmonary disease, unspecified COPD type ([facility]/HCC) Social History Tobacco Use Types Packs/Day Years [...] Sign Reading Time Taken Comments Blood Pressure 116/60 03/25/2024 3:35 PM EST Pulse 69 03/25/2024 3:35 PM EST Temperature 36.2 ??C (97.1 ??F) 03/25/2024 3:35 PM ES T Respiratory Rate - - Oxygen Saturation 97% 03/25/2024 3:35 PM EST Inhaled Oxygen Concentration - - Weight 113 kg (250 lb) 03/25/2024 3:35 PM EST Height - - Body Mass Index 34.87 11/29/2023 2:56 PM EDT documented in this encounter Progress Notes * Randa Yip MD - 03/25/2024 3:30 PM ESTAssociated Problem(s): Obstructive sleep apnea syndrome * Randa Yip MD - 03/25/2024 3:30 PM ESTAssociated Problem(s): Autoimmune hemolytic anemia (CMS/HCC) * Randa Yip MD - 03/25/2024 3:30 PM ESTAssociated Problem(s): Chronic obstructive pulmonary disease (CMS/HCC) * Randa Yip MD - 03/25/2024 3:30 PM EST Images from the original note were not included. CHIEF COMPLAINT: Annual Exam IDENTIFIER: Maycol Keen is a 74 y.o. old male. HPI:Autoimmune hemolytic anemia, chronic kidney disease, obstructive sleep apnea, history of DVT onCoumadin, Diabetes, hypertension Doing well,no complaints today. ROS: GENERAL: No malaise, significant weight loss or fever NECK: No lumps, goiter, pain or significant neck swelling RESPIRATORY: No cough, wheezing or shortness of breath CARDIOVASCULAR: No chest pain, leg swelling or palpitations GI: No abdominal discomfort, blood in stools or black stools PSYCH: No sleep disturbance, mood disorder or recent psychosocial stressors. PAST MEDICAL HISTORY: Patient Active Problem List Diagnosis Date Noted Antiphospholipid antibody with hypercoagulable state ([facility]) 01/25/2024 assisted (current) use of anticoagulants 01/17/2024 Weight loss 01/28/2020 Obstructive sleep apnea syndrome 01/09/2017 Hypertension 12/16/2016 Allergic rhinitis 10/21/2016 Chronic obstructive pulmonary disease ([facility]) 10/21/2016 Deep vein thrombosis (DVT) of lower extremity ([facility]) 10/21/2016 Multiple pulmonary nodules 10/21/2016 Autoimmune hemolytic anemia ([facility]) 08/04/2016 Eczema 07/08/2016 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 Ulcer of ankle ([facility]) 06/06/2016 Hypercholesterolemia 08/13/2015 Aortic valve sclerosis 02/20/2014 Malignant neoplasm of overlapping sites of bladder ([facility]) 02/20/2014 CKD (chronic kidney disease) stage 3, GFR 30-59 ml/min ([facility]) 02/19/2013 Steatosis of liver 02/19/2013 Asymptomatic varicose veins of lower extremity 02/15/2012 Microscopic hematuria 02/07/2012 Past Surgical History: Procedure Laterality Date OTHER SURGICAL HISTORY PROCEDURE:SPLENECTOMY OTHER SURGICAL HISTORY PROCEDURE: HISTORY OTHER; COMMENT: vein stripping SOCIAL HISTORY: Social History Tobacco Use Smoking status: Former Smokeless tobacco: Never Substance Use Topics Alcohol use: No FAMILY HISTORY: Family History Problem Relation Name Age of Onset Cardiomyopathy Mother Cardiomyopathy Sister Cardiomyopathy Brother Family Status Relation Name Status Mother (Not Specified) Sister (Not Specified) Brother (Not Specified) No partnership data on file MEDICATIONS DISCONTINUED/REORDERED: Medications Discontinued During This Encounter Medication Reason glipiZIDE (GLUCOTROL) 5 mg tablet ACTIVE MEDICATIONS: Outpatient Medications Marked as Taking for the 03/25/24 encounter (Office Visit) with Randa Yip MD Medication Sig Dispense Refill amLODIPine (NORVASC) 10 [...] warfarin (COUMADIN) 1 mg tablet 5mg daily [DISCONTINUED] glipiZIDE (GLUCOTROL) 5 mg tablet Take 1 tablet (5 mg total) by mouth daily. ALLERGIES: Allergies Allergen Reactions Hydralazine Pravastatin Jaundice PHYSICAL EXAM: Visit Vitals BP 116/60 (BP Location: Left arm, Patient Position: Sitting, BP Cuff Size: Large adult) Pulse 69 Temp 36.2 ??C (97.1 ??F) (Temporal) Wt 113 kg (250 lb) SpO2 97% BMI 34.87 kg/m?? Smoking Status Former BSA 2.31 m?? APPEARANCE: Alert and in no acute distress NECK: Neck supple, no adenopathy, thyroid symmetric and of normal size HEART: RRR with normal S1 and S2, no murmurs, no gallops, no JVD appreciated LUNG: clear to auscultation ABDOMEN: Bowel sounds normoactive, no bruits, soft, non-tender, without organomegaly or palpable masses SKIN: Skin color, texture, turgor normal. No rashes or lesions. LABS/IMAGING: Appointment on 03/15/2024 Component Date Value Ref Range Status Protime 03/15/2024 23.6 (H) 10.6 - 13.9 sec Final INR 03/15/2024 1.9 Final Sodium 03/15/2024 133 133 - 145 mmol/L Final Potassium 03/15/2024 4.5 3.5 - 5.5 mmol/L Final Chloride 03/15/2024 103 96 - 110 mmol/L Final CO2 03/15/2024 26 21 - 32 mmol/L Final Anion Gap 03/15/2024 4 3 - 11 Final Glucose 03/15/2024 193 (H) 70 - 100 mg/dL Final BUN 03/15/2024 24 5 - 25 mg/dL Final Creatinine 03/15/2024 1.63 (H) 0.70 - 1.30 mg/dL Final eGFR 03/15/2024 44 (L) >=60 mL/min/1.73m2 Final BUN/Creatinine Ratio 03/15/2024 14.7 Final Calcium 03/15/2024 8.8 8.5 - 10.5 mg/dL Final AST (SGOT) 03/15/2024 18 10 - 42 unit/L Final ALT (SGPT) 03/15/2024 31 10 - 60 unit/L Final Alkaline Phosphatase 03/15/2024 75 42 - 121 unit/L Final Total Protein 03/15/2024 6.8 6.0 - 8.0 g/dL Final Albumin 03/15/2024 3.4 3.2 - 5.0 g/dL Final Total Bilirubin 03/15/2024 0.9 0.0 - 1.4 mg/dL Final LDH 03/15/2024 270 (H) 120 - 246 unit/L Final Haptoglobin 03/15/2024 49 16 - 200 mg/dL Final WBC 03/15/2024 15.4 (H) 4.8 - 10.8 K/mcL Final RBC 03/15/2024 4.90 4.50 - 5.50 M/mcL Final Hemoglobin 03/15/2024 13.7 13.5 - 17.5 g/dL Final Hematocrit 03/15/2024 43.6 42.0 - 54.0 % Final MCV 03/15/2024 88.8 79.0 - 98.0 FL Final MCH 03/15/2024 27.9 27.0 - 32.0 pcg Final MCHC 03/15/2024 31.4 (L) 32.0 - 37.0 g/dL Final RDW 03/15/2024 15.1 (H) 11.0 - 15.0 % Final Platelets 03/15/2024 317 130 - 400 K/mcL Final MPV 03/15/2024 11.8 (H) 7.0 - 11.0 FL Final NRBC 03/15/2024 0.0 <1.0 % Final NRBC Absolute 03/15/2024 0.00 <0.10 K/mcL Final Neutrophils Relative 03/15/2024 39.6 % Final Lymphocytes Relative 03/15/2024 46.6 % Final Monocytes Relative 03/15/2024 11.3 % Final Eosinophils Relative 03/15/2024 1.7 % Final Basophils Relative 03/15/2024 0.5 % Final Immature Granulocytes Relative 03/15/2024 0.3 % Final Neutrophils Absolute 03/15/2024 6.09 1.50 - 7.00 K/mcL Final Lymphocytes Absolute 03/15/2024 7.16 (H) 1.00 - 5.00 K/mcL Final Monocytes Absolute 03/15/2024 1.74 (H) 0.20 - 1.00 K/mcL Final Eosinophils Absolute 03/15/2024 0.26 0.00 - 0.50 K/mcL Final Basophils Absolute 03/15/2024 0.08 0.00 - 0.20 K/mcL Final Immature Granulocytes Absolute 03/15/2024 0.04 (H) 0.00 - 0.03 K/mcL Final Appointment on 02/16/2024 Component Date Value Ref Range Status Protime 02/16/2024 32.7 (H) 10.6 - 13.9 sec Final INR 02/16/2024 2.6 Final Sodium 02/16/2024 137 133 - 145 mmol/L Final Potassium 02/16/2024 4.7 3.5 - 5.5 mmol/L Final Chloride 02/16/2024 106 96 - 110 mmol/L Final CO2 02/16/2024 22 21 - 32 mmol/L Final Anion Gap 02/16/2024 9 3 - 11 Final Glucose 02/16/2024 188 (H) 70 - 100 mg/dL Final BUN 02/16/2024 23 5 - 25 mg/dL Final Creatinine 02/16/2024 1.56 (H) 0.70 - 1.30 mg/dL Final eGFR 02/16/2024 46 (L) >=60 mL/min/1.73m2 Final BUN/Creatinine Ratio 02/16/2024 14.7 Final Calcium 02/16/2024 9.6 8.5 - 10.5 mg/dL Final AST (SGOT) 02/16/2024 22 10 - 42 unit/L Final ALT (SGPT) 02/16/2024 28 10 - 60 unit/L Final Alkaline Phosphatase 02/16/2024 89 42 - 121 unit/L Final Total Protein 02/16/2024 7.1 6.0 - 8.0 g/dL Final Albumin 02/16/2024 3.8 3.2 - 5.0 g/dL Final Total Bilirubin 02/16/2024 0.5 0.0 - 1.4 mg/dL Final LDH 02/16/2024 289 (H) 120 - 246 unit/L Final Haptoglobin 02/16/2024 77 16 - 200 mg/dL Final WBC 02/16/2024 14.9 (H) 4.8 - 10.8 K/mcL Final RBC 02/16/2024 5.10 4.50 - 5.50 M/mcL Final Hemoglobin 02/16/2024 14.4 13.5 - 17.5 g/dL Final Hematocrit 02/16/2024 44.6 42.0 - 54.0 % Final MCV 02/16/2024 88.1 79.0 - 98.0 FL Final MCH 02/16/2024 28.5 27.0 - 32.0 pcg Final MCHC 02/16/2024 32.3 32.0 - 37.0 g/dL Final RDW 02/16/2024 14.4 11.0 - 15.0 % Final Platelets 02/16/2024 297 130 - 400 K/mcL Final MPV 02/16/2024 11.8 (H) 7.0 - 11.0 FL Final NRBC 02/16/2024 0.0 <1.0 % Final NRBC Absolute 02/16/2024 0.00 <0.10 K/mcL Final Neutrophils Relative 02/16/2024 59.7 % Final Lymphocytes Relative 02/16/2024 31.2 % Final Monocytes Relative 02/16/2024 7.3 % Final Eosinophils Relative 02/16/2024 0.7 % Final Basophils Relative 02/16/2024 0.6 % Final Immature Granulocytes Relative 02/16/2024 0.5 % Final Neutrophils Absolute 02/16/2024 8.90 (H) 1.50 - 7.00 K/mcL Final Lymphocytes Absolute 02/16/2024 4.66 1.00 - 5.00 K/mcL Final Monocytes Absolute 02/16/2024 1.09 (H) 0.20 - 1.00 K/mcL Final Eosinophils Absolute 02/16/2024 0.11 0.00 - 0.50 K/mcL Final Basophils Absolute 02/16/2024 0.09 0.00 - 0.20 K/mcL Final Immature Granulocytes Absolute 02/16/2024 0.07 (H) 0.00 - 0.03 K/mcL Final Appointment on 01/25/2024 Component Date Value Ref Range Status Sodium 01/25/2024 137 133 - 145 mmol/L Final Potassium 01/25/2024 4.6 3.5 - 5.5 mmol/L Final Chloride 01/25/2024 104 96 - 110 mmol/L Final CO2 01/25/2024 22 21 - 32 mmol/L Final Anion Gap 01/25/2024 11 3 - 11 Final Glucose 01/25/2024 323 (H) 70 - 100 mg/dL Final BUN 01/25/2024 20 5 - 25 mg/dL Final Creatinine 01/25/2024 1.58 (H) 0.70 - 1.30 mg/dL Final eGFR 01/25/2024 46 (L) >=60 mL/min/1.73m2 Final BUN/Creatinine Ratio 01/25/2024 12.7 Final Calcium 01/25/2024 9.3 8.5 - 10.5 mg/dL Final AST (SGOT) 01/25/2024 16 10 - 42 unit/L Final ALT (SGPT) 01/25/2024 32 10 - 60 unit/L Final Alkaline Phosphatase 01/25/2024 84 42 - 121 unit/L Final Total Protein 01/25/2024 6.6 6.0 - 8.0 g/dL Final Albumin 01/25/2024 3.4 3.2 - 5.0 g/dL Final Total Bilirubin 01/25/2024 0.3 0.0 - 1.4 mg/dL Final LDH 01/25/2024 273 (H) 120 - 246 unit/L Final Haptoglobin 01/25/2024 98 16 - 200 mg/dL Final WBC 01/25/2024 14.7 (H) 4.8 - 10.8 K/mcL Final RBC 01/25/2024 4.90 4.50 - 5.50 M/mcL Final Hemoglobin 01/25/2024 14.1 13.5 - 17.5 g/dL Final Hematocrit 01/25/2024 44.1 42.0 - 54.0 % Final MCV 01/25/2024 90.4 79.0 - 98.0 FL Final MCH 01/25/2024 28.9 27.0 - 32.0 pcg Final MCHC 01/25/2024 32.0 32.0 - 37.0 g/dL Final RDW 01/25/2024 13.4 11.0 - 15.0 % Final Platelets 01/25/2024 345 130 - 400 K/mcL Final MPV 01/25/2024 11.7 (H) 7.0 - 11.0 FL Final NRBC 01/25/2024 0.0 <1.0 % Final NRBC Absolute 01/25/2024 0.00 <0.10 K/mcL Final Neutrophils Relative 01/25/2024 69.5 % Final Lymphocytes Relative 01/25/2024 22.2 % Final Monocytes Relative 01/25/2024 6.2 % Final Eosinophils Relative 01/25/2024 1.2 % Final Basophils Relative 01/25/2024 0.5 % Final Immature Granulocytes Relative 01/25/2024 0.4 % Final Neutrophils Absolute 01/25/2024 10.18 (H) 1.50 - 7.00 K/mcL Final Lymphocytes Absolute 01/25/2024 3.25 1.00 - 5.00 K/mcL Final Monocytes Absolute 01/25/2024 0.91 0.20 - 1.00 K/mcL Final Eosinophils Absolute 01/25/2024 0.17 0.00 - 0.50 K/mcL Final Basophils Absolute 01/25/2024 0.08 0.00 - 0.20 K/mcL Final Immature Granulocytes Absolute 01/25/2024 0.06 (H) 0.00 - 0.03 K/mcL Final Protime 01/25/2024 35.5 (H) 10.6 - 13.9 sec Final INR 01/25/2024 2.8 Final Anticoagulation - Warfarin Visit on 01/17/2024 Component Date Value Ref Range Status INR 01/11/2024 3.2 Final Medication and lab orders: Orders Placed This Encounter Procedures Hemoglobin A1c Other orders: None IMPRESSION: 1. Type 2 diabetes mellitus without complication, without long-term current use of insulin ([facility]) 2. Encounter for subsequent annual wellness visit (AWV) in Medicare patient 3. Obstructive sleep apnea syndrome 4. Autoimmune hemolytic anemia ([facility]) 5. Chronic obstructive pulmonary disease, unspecified COPD type ([facility]) PLAN: Lung nodule suspicious for malignancy: Cardiothoracic surgery, pulmonology, oncology-- Type 2 diabetes-d/c glipizide,A1c 5.4. continue Trulicity. A1c ordered today. Hyperlipidemia--continue Zetia. DVT on Coumadin, follows Coumadin clinic managed by oncology Chronic kidney disease stable follows nephrology Dr. Fernandez Autoimmune hemolytic anemia, follows oncology, on prednisone, last hemoglobin 12. Stable. Obstructive sleep apnea-- on CPAP Hypomagnesemia--continue magnesium supplement Will order magnesium TSH lipids We will follow-up in 4 months or sooner as needed Randa Yip MD on 03/25/2024 at 6:57 PM EST Medicare Annual Wellness Visit Note Patient Name: Maycol Keen Date of : 1950 Race: Unknown Ethnicity: Other , /a, or Swazi origin Date of Service: 03/25/2024 Maycol is a 74 y.o. male presenting for Annual Exam History of Present Illness HPI Comprehensive Medical and Social History: Patient Active Problem List Diagnosis Allergic rhinitis Aortic valve sclerosis Asymptomatic varicose veins of lower extremity Autoimmune hemolytic anemia (CMS/HCC) Chronic obstructive pulmonary disease ([facility]) CKD (chronic kidney disease) stage 3, GFR 30-59 ml/min (CMS/HCC) Deep vein thrombosis (DVT) of lower extremity (CMS/HCC) Eczema Hypercholesterolemia Hypertension Lichen planus Malignant neoplasm of overlapping sites of bladder (CMS/HCC) Microscopic hematuria Multiple pulmonary nodules Obstructive sleep apnea syndrome Steatosis of liver Ulcer of ankle (CMS/HCC) Weight loss 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 Past Medical History: Diagnosis Date Acute ischemic heart disease ([facility]) 02/08/2016 DX:Acute ischemic heart disease (HCC) Allergic rhinitis 10/21/2016 DX:Allergic rhinitis Anemia DX:Anemia Antiphospholipid syndrome ([facility]) 10/21/2016 DX:Antiphospholipid syndrome (HCC) Aortic valve sclerosis 02/20/2014 DX:Aortic valve sclerosis Asymptomatic varicose veins of lower extremity 02/15/2012 DX:Asymptomatic varicose veins of lower extremity Autoimmune hemolytic anemia ([facility]) 08/04/2016 DX:Autoimmune hemolytic anemia (HCC) Chronic obstructive pulmonary disease ([facility]) 10/21/2016 DX:Chronic obstructive pulmonary disease (HCC) CKD (chronic kidney disease) stage 3, GFR 30-59 ml/min ([facility]) 02/19/2013 DX:CKD (chronic kidney disease) stage 3, GFR 30-59 ml/min (HCC) Deep vein thrombosis (DVT) of lower extremity (CMS/HCC) 10/21/2016 DX:Deep vein thrombosis (DVT) of lower extremity (HCC) Eczema 07/08/2016 DX:Eczema FH: emphysema DX:FH: emphysema [...] ankle (CMS/HCC) 06/06/2016 DX:Ulcer of ankle (HCC) Past Surgical History: Procedure Laterality Date OTHER SURGICAL HISTORY PROCEDURE:SPLENECTOMY OTHER SURGICAL HISTORY PROCEDURE: HISTORY OTHER; COMMENT: vein stripping Social History Socioeconomic History Marital status: Spouse name: None Number of children: None Years of education: None Highest education level: None Occupational History None Tobacco Use Smoking status: Former Smokeless tobacco: Never Substance and Sexual Activity Alcohol use: No Drug use: No Sexual activity: None Other Topics Concern None Social History Narrative None Family History Problem Relation Name Age of Onset Cardiomyopathy Mother Cardiomyopathy Sister Cardiomyopathy Brother Immunizations: Immunization History Administered Date(s) Administered COVID-19 (Pfizer/Comirnaty) 12yo and older 12/14/2022, 01/30/2024 Moderna (age 6mo & older) Bivalent, COVID-19, 0.5 mL or 0.25 mL dosage 01/12/2022 Moderna SARS-CoV-2 COVID-19, mRNA, LNP-S, preservative free 05/09/2020, 06/06/2020, 01/14/2021 Hospitalization in the last year: Has not been hospitalized in the past 12 months. Current Providers and Suppliers: Patient Care Team: Randa Yip MD as PCP - General (Internal Medicine) Patient does not have/use current medical supplier Risk Assessments: Cognitive Function Assessment No cognitive concerns, No screenings indicated. Depression Screening (PHQ2/9): Depression Screening Will the patient answer the depression risk questions?: Yes Over the last 2 weeks, how often have you been bothered by little interest or pleasure in doing things?: Not at all Over the last 2 weeks, how often have you been bothered by feeling down, depressed, or hopeless?: Not at all Depression Risk: 0 PHQ9 Full Set of Questions Over the last 2 weeks, how often have you been bothered by little interest or pleasure in doing things?: Not at all Over the last 2 weeks, how often have you been bothered by feeling down, depressed, or hopeless?: Not at all Depression Risk Score NEW: 0 Depression Plan : Screen was negative Anxiety Screening: Alcohol Screening: Substance Abuse Screening: Pain: Pain Medications: Patient does not take any opioid medications BMI: Body mass index is 34.87 kg/m??. The BMI is above average. The patient received dietary education because they have an above normal BMI. Functional Ability and Level of Safety Review Health Status: In general, the patient reports health as: fair In general, patient reports life as: good Patient reports sleep pattern as: restless Have you seen a dentist in the last year?: No Activity of Daily Living (ADLs): Do you need help from others for your personal care such as eating, dressing, toileting, or gettingaround the house?: Yes Instrumental Activities of Daily Living (IADLs): Do you need help with using the telephone?: Yes Do you need help with shopping?: Yes Do you need help with food preparation?: Yes Do you need help with housekeeping?: Yes Do you need help with laundry?: Yes Do you need help handling finances?: Yes Do you drive?: Yes Do you manage your own medication?: No Physical Activity: Do you exercise for about 20 minutes or more three days a week?: Yes, always Nutritional Assessment: Do you eat a balanced diet including daily serving of fruits, vegetables, and whole grains?: Yes, always Social Influencer of Health (SIOH): Sexual Health: Have you been bothered by sexual problems: No Fall Risk: Have you fallen in the past year? no. Are you worried about falling? yes. . Hearing: Whisper Test: PASS Vision Screening: Required for Medicare Initial Preventative Physical Exam (IPPE) No data recorded Review of Systems Review of Systems Objective BP 116/60 (BP Location: Left arm, Patient Position: Sitting, BP Cuff Size: Large adult) Pulse 69 Temp 36.2 ??C (97.1 ??F) (Temporal) Wt 113 kg (250 lb) BMI 34.87 kg/m?? SpO2: 97 % Physical Exam Assessment/Plan Patient presented today for an Subsequent Medicare Wellness Visit with management of chronic condition(s). Assessment & Plan Type 2 diabetes mellitus without complication, without long-term current use of insulin ([facility]) Orders: Hemoglobin A1c; Future Encounter for subsequent annual wellness visit (AWV) in Medicare patient Obstructive sleep apnea syndrome Autoimmune hemolytic anemia ([facility]) Chronic obstructive pulmonary disease, unspecified COPD type ([facility]) Advance Care Planning Discussion: Advance Care Planning was discussed. Maycol reports that he does not have advance directives or surrogate decision maker. Patient has not identified their surrogate decision maker. During the visit we discussed: Available Advanced Directive forms discussed A total time of 16 minutes or greater was spent on Advance Care Planning today :No Fall Prevention Education Discussed: not rushing through tasks Health Maintenance Topic Date Due Diabetes: Annual Foot Exam Never done Hepatitis A Vaccines (1 of 2 - Risk 2-dose series) Never done Hepatitis B Vaccines (1 of 3 - Risk 3-dose series) Never done RSV Immunization Patients 60+ Years Old (1 - Risk 60-74 years 1-dose series) Never done Zoster Vaccines (2 of 2) 04/24/2019 Abdominal Aortic Aneurysm (AAA) Screen Never done Falls Risk Assessment Never done Depression Screening Never done Hepatitis C Screening Never done Social Influencers of Health Screening Never done Medicare Annual Wellness Visit Never done Diabetes: Annual Urine Albumin-Creatinine Ratio (uACR) Never done Diabetes: Blood Sugar Control Test (HGBA1C) 05/27/2024 Diabetes: Annual Retina Eye Exam 02/11/2025 Diabetes: Annual GFR (Glomerular Filtration Rate) 03/15/2025 Hypertension/CHF/CAD Annual BMP Blood Test 03/15/2025 Colorectal Cancer Screening: FIT-DNA (Cologuard) 02/14/2026 Cholesterol Screening (Lipid Panel) 11/27/2028 DTaP,Tdap,and Td Vaccines (4 - Td or Tdap) 01/29/2034 Influenza Vaccine Completed Pneumococcal Vaccine: 65+ Years Completed COVID-19 Vaccine Completed HIB Vaccines Aged Out IPV Vaccines Aged Out MMR Vaccines Aged Out Varicella Vaccines Aged Out Meningococcal ACWY Vaccine Aged Out HPV Vaccines Aged Out RSV Immunization Patients Under 20 months Aged Out Randa Yip MD [facility] [address] [facility] [address] [facility] [phone] Dept: [phone] Dept documented in this encounter Plan of Treatment Upcoming Encounters Date Type Department Care Team (Latest Contact Info) Description 04/10/2024 12:30 PM EST Procedure visit Pulmonolgy - [place] [facility] [address] [place] [phone] Edy Servin 04/19/2024 1:00 PM EST Pre-Admission Testing [facility] Pre-Admission Testing [address] [place] [phone] 05/01/2024 8:15 AM EST Hospital Encounter [facility] [place] [address] [place] [phone] Gay Rodriguez MD [address] [place] [phone] 05/01/2024 8:15 AM EST - 05/01/2024 10:00 AM EST Surgery [facility] [place] [address] [place] [phone] Gay Rodriguez MD [address] [place] [id number] ROBOTIC ASSISTED BRONCHOSCOPY W. FNA, TBBX, BRUSH, BAL [[id number] (CPT??)] 05/09/2024 1:00 PM EST Office Visit Pulmonology - [place] [address] [facility] [address] [place] [phone] Gay Rodriguez MD [address] [place] [phone] 05/27/2024 2:15 PM EDT Office Visit [facility] Hematology Oncology [address] [place] [phone] Edmund Meraz MD [address] [place] [phone] 07/25/2024 1:00 PM EDT Office Visit Internal Medicine - [place] [facility] [address] [place] [phone] Randa Yip MD [address] [phone] 01/07/2025 12:30 PM EDT [facility] [address] [place] [phone] Betito Fisher MD [address] [phone] Pending Results Name Type Priority Associated Diagnoses Date /Time Hemoglobin A1c Lab Routine Type 2 diabetes mellitus without complication, without long-term current use of insulin ([facility]) 04/09/2024 12:42 PM EST Scheduled Orders Name Type Priority Associated Diagnoses Orde r Schedule Hemoglobin A1c Lab Routine Type 2 diabetes mellitus without complication, without long-term current use of insulin ([facility]) 1 Occurrences starting 03/25/2024 until 03/25/2025 Scheduled Procedures Name Priority Associated Diagnoses Date/Ti me BRONCHOSCOPY Lung nodule 05/01/2024 8:15 AM EST BRONCHOSCOPY NODULE 1 ROBOT Lung nodule 05/01/2024 8:15 AM EST BRONCHOSCOPY NODULE 2 ROBOT Lung nodule 05/01/2024 8:15 AM EST BRONCHOSCOPY WITH FIDUCIAL PLACEMENT Lung nodule 05/01/2024 8:15 AM EST documented as of this encounter Visit Diagnoses Diagnosis Type 2 diabetes mellitus without complication, without long-term current use of insulin ([facility] Primary Encounter for subsequent annual wellness visit (AWV) in Medicare patient Obstructive sleep apnea syndrome Obstructive sleep apnea (adult) (pediatric) Autoimmune hemolytic anemia (CMS/HCC) Autoimmune hemolytic anemias Chronic obstructive pulmonary disease, unspecified COPD type (CMS/HCC) Lung nodule Other diseases of lung, not elsewhere classified documented in this encounter Discontinued Medications Medication Sig Discontinue Reason Start Date End Da te glipiZIDE (GLUCOTROL) 5 mg tablet Take 1 tablet (5 mg total) by mouth daily. 03/25/2024 documented as of this encounter Additional Health Concerns Assessment Noted Time PHQ-9 Depression Total Score: 0 03/25/19 25 3:34 PM EST documented as of this encounter Care Teams Sign Painter Relationship Specialty Start Date End Date Randa Yip MD [address] [phone] PCP - General Internal Medicine 02/16/24 documented as of this encounter
--- OUTSIDE RECORDS SUMMARY | 2024-04-09 14:18 | XMS_ITS | Encounter Summary ---
Author Organization [facility] Address [address] [place] [address] Care Team Providers Care Process Assistant Name Role Phone Randa Yip MD Primary Care Provider [phone] Encounter Details Date Type Department Care Team (Late st Contact Info) Description 04/08/2024 Telephone [facility] [address] [phone] Hue Benito [place] Social History Tobacco Use Types Packs/Day [...] Description 04/10/2024 12:30 PM EST Procedure visit [facility] [address] [phone] Edy Servin 04/19/2024 1:00 PM EST Pre-Admission Testing [facility] Pre-Admission Testing [address] [place] [phone] 05/01/2024 8:15 AM EST Hospital Encounter [facility] OR [address] [place] [phone] Gay Rodriguez MD [address] [place] [phone] 05/01/2024 8:15 AM EST - 05/01/2024 10:00 AM EST Surgery [facility] Main OR [address] [place] [phone] Gay Rodriguez MD [address] [place] [phone] ROBOTIC ASSISTED BRONCHOSCOPY W. FNA, TBBX, BRUSH, BAL [[id number] (CPT??)] 05/09/2024 1:00 PM EST Office Visit Pulmonology - [place] 299 [facility] 410 [place] [phone] Gay Rodriguez MD [address] [place] [phone] 05/27/2024 2:15 PM EDT Office Visit [facility] Hematology Oncology [address] [place] [phone] Edmund Meraz MD [address] [place] [phone] 07/25/2024 1:00 PM EDT Office Visit Internal Medicine - [place] 175 [facility] 200 [place] [phone] Randa Yip MD 175 [facility] 200 [place] [phone] 01/07/2025 12:30 PM EDT Office Visit Nephrology - [facility] 305 [place] [address] Betito Fisher MD 3550 [facility] 204 [place] [phone] Scheduled Procedures Name Priority Associated Diagnoses Date/Ti [...] documented as of this encounter Care Teams Process Assistant Relationship Specialty Start Date End Date Randa Yip MD [address] [place] [phone] PCP - General Internal Medicine 02/16/24 documented as of this encounter
--- OUTSIDE RECORDS SUMMARY | 2024-04-09 14:18 | XMS_ITS | Encounter Summary ---
Author Organization [facility] Address [address] [place] [address] Care Team Providers Care Under Presser Name Role Phone Randa Yip MD Primary Care Provider [phone] Encounter Details Date Type Department Care Team (Late st Contact Info) Description 04/08/2024 Telephone [facility] [address] [place] [phone] Bernadette Conner LPN Social History Tobacco Use Types Packs/Day Years [...] as of this encounter Progress Notes * Bernadette Conner LPN - 04/08/2024 2:29 PM EST ROBOTIC ASSISTED BRONCHOSCOPY W. FNA, TBBX, BRUSH, BAL [[id number] (CPT??)] Bilateral LENGTH OF PROCEDURE 75 MINUTES RADIAL EBUS [29435 (CPT??)] Bilateral LINEAR EBUS TBNA W. FLUOROSCOPY [42738 (CPT??)] Bilateral FIDUCIAL MARKER PLACEMENT [73750 (CPT??)] Bilateral Received a phone call from Dorina The patient has an appointment with Dr styles April 16 at 2:00 p.m. with [place] filler sifter machine Bernadette from [facility] was notified of upcoming surgery without a date sent over fax at1:00 p.m. to [facility] follow up with [facility] will follow up in 2 days for PA # Date 05/01/2024 Need to be off coumadin x 5 days and bridged with Lovenox per Dr Mcdermott Lovenox 120 mg bid Last coumadin Apr 26 2024 Check Inr 04/29/2024 documented in this encounter Plan of Treatment Upcoming Encounters Date Type Department Care Team (Latest Contact Info) Description 04/10/2024 12:30 PM EST Procedure visit Pulmonolgy [facility] 175 [facility] 200 [place] [phone] Edy Servin 04/19/2024 1:00 PM EST Pre-Admission Testing [facility] Pre-Admission Testing [address] [place] [phone] 05/01/2024 8:15 AM EST Hospital Encounter [facility] OR [address] [place] [phone] Gay Rodriguez MD [address] [place] [phone] 05/01/2024 8:15 AM EST - 05/01/2024 10:00 AM EST Surgery [facility] OR [address] [place] [phone] Gay Rodriguez MD [address] [place] [phone] ROBOTIC ASSISTED BRONCHOSCOPY W. FNA, TBBX, BRUSH, BAL [[id number] (CPT??)] 05/09/2024 1:00 PM EST Office Visit Pulmonology - [place] 299 [facility] 410 [place] [phone] Gay Rodriguez MD [address] [place] [phone] 05/27/2024 2:15 PM EDT Office Visit [facility] Hematology Oncology [address] [place] [phone] Edmund Meraz MD [address] [place] [phone] 07/25/2024 1:00 PM EDT Office Visit Internal Medicine - [place] [address] [phone] Randa Yip MD [address] [phone] 01/07/2025 12:30 PM EDT Office [facility] [address] [place] [address] Betito Fisher MD [address] [phone] Scheduled Procedures Name Priority Associated Diagnoses Date/Ti [...] documented as of this encounter Care Teams Under Presser Relationship Specialty Start Date End Date Randa Yip MD [address] [phone] PCP - General Internal Medicine 02/16/24 documented as of this encounter
--- OUTSIDE RECORDS SUMMARY | 2024-04-09 14:18 | XMS_ITS | Encounter Summary ---
Author Organization [facility] Address [address] [place] [address] Care Team Providers Care Textile Chemist Name Role Phone Randa Yip MD Primary Care Provider [phone] Reason for Visit * Reason Comments Consult Multiple pulmonary n odules * Consultation (Routine) - Closed Specialty Diagnoses / Procedures Referred By Юлия casanova Referred To Contact Pulmonology Diagnoses Multiple pulmonary nodules Sarah Green MD [address] [address] [facility] Interventional Pulmonology [place] [address] [phone] Referral ID Status Reason Start Date Expiration Date V isits Requested Visits Authorized [id number] Closed Specialty Services Required 04/01/2024 04/01/2025 1 1 Encounter Details Date Type Department Care Team (Late st Contact Info) Description 04/02/2024 11:30 AM EST Consult Pulmonology - [place] [address] [phone] Gay Rodriguez MD [address] [place] [phone] Lung nodules (Primary Dx); Chronic hypoxemic respiratory failure (CMS/HCC); Centrilobular emphysema (CMS/HCC); Multiple pulmonary nodules Social History Tobacco Use Types Packs/Day Years [...] Mass Index 35.61 04/02/2024 11:39 AM EST documented in this encounter Progress Notes * Gay Rodriguez MD - 04/02/2024 11:30 AM EST Images from the original note were not included. 04/02/2024 Maycol Keen : 1950 PCP: Randa Yip MD Chief Complaint:: lung nodules History of Present Illness: Maycol Keen is a 74 y.o. male former smoker PMH APLS, AIH, CKD, RUFUS, DVT on coumadin, COPD, who presents as a referral from Dr. Green for lung nodules. He is here with his today. CT scan of the chest was done on 03/21/2024, it was a follow up 6 month scan. Compared with multiple previous from this institution and outside institutions shows a 14 mm spiculated pulmonary nodule onthe fissure in the superior segment of the left lower lobe (previously measured 6 mm) and a 9 mm left lower lobe pulmonary nodule (which previously measured 4 mm) towards the base. There is no mediastinal lymphadenopathy and no pleural disease. He was referred to Dr. Rogel in September [address] Green due to known fissural nodule (LLL superior segment). Pt was to get back to us about whether he wanted to proceed with biopsy but he had COVID and him/his had issues with in the family so things got backlogged for them. Also of note he had a lung biopsy (transthoracic) in 2019 when I look into the records. Based on the images I see (no procedure report) this seems to be of a different nodule in the SUSAN. Path was negative: LUNG, LEFT UPPER LOBE, BIOPSY: - INTERSTITITAL FIBROSIS AND FOCAL CHRONIC INFLAMMATION, NON-SPECIFIC. - THERE IS NO EVIDENCE OF MALIGNANCY. This nodule is no longer visible. He is on 2 L of oxygen with activity and does obviously have shortness of breath with activity. He uses CPAP at night without oxygen. He denies any unintentional weight loss, decreased appetite, fevers, chills, soaking sweats, or fatigue. He denies any chest pain, cough, or hemoptysis. He denies any neurologic symptoms. Allergies: Allergies Allergen Reactions Hydralazine Pravastatin Jaundice Medications: Current Outpatient Medications Medication Instructions amLODIPine (NORVASC) 10 mg, oral, Daily atenoloL (TENORMIN) 25 mg, oral, Daily clopidogreL (PLAVIX) 75 mg tablet Take 1 tablet (75 mg total) by mouth daily. ezetimibe (ZETIA) 10 mg tablet Take 1 tablet (10 mg total) by mouth daily. folic acid (FOLVITE) 1 mg tablet Take 1 tablet (1 mg total) by mouth daily. furosemide (LASIX) 20 mg, oral, Daily lisinopriL (PRINIVIL,ZESTRIL) 20 mg tablet Take 1 tablet (20 mg total) by mouth daily. magnesium oxide (MAG-OX) 400 mg, oral, Daily melatonin 3 mg tablet Take 1 tablet (3 mg total) by mouth every night at bedtime. omeprazole (PriLOSEC) [address] capsule Take 1 capsule (20 mg total) by mouth daily. predniSONE (DELTASONE) 10 mg tablet Take 1 tablet (10 mg total) by mouth daily. Trulicity 0.75 mg/0.5 mL pen injector injection INJECT 1 DOSE INTO THE SKIN ONCE A WEEK umeclidinium-vilanteroL (ANORO ELLIPTA) 62.5-25 mcg/actuation inhaler 1 puff by Inhaled route daily. warfarin (COUMADIN) 1 mg tablet 5mg daily Past Medical History: Diagnosis Date Acute ischemic [...] HISTORY PROCEDURE: HISTORY OTHER; COMMENT: vein stripping Family History Problem Relation Name Age of Onset Cardiomyopathy Mother Cardiomyopathy Sister Cardiomyopathy Brother Social History Socioeconomic History Marital status: Spouse name: Not on file Number of children: Not on file Years of education: Not on file Highest education level: Not on file Occupational History Not on file Tobacco Use Smoking status: Former Smokeless tobacco: Never Substance and Sexual Activity Alcohol use: No Drug use: No Sexual activity: Not on file Other Topics Concern Not on file Social History Narrative Not on file Review of Systems Constitutional: Negative. HENT: Negative. Eyes: Negative. Respiratory: Positive for shortness of breath. Cardiovascular: Negative. Gastrointestinal: Negative. Endocrine: Negative. Genitourinary: Negative. Musculoskeletal: Negative. Skin: Negative. Breast: negative. Allergic/Immunologic: Negative. Neurological: Negative. Hematological: Negative. Psychiatric/Behavioral: Negative. Vitals: 04/02/24 1139 BP: 139/51 Pulse: 58 Resp: 16 Temp: 36.5 ??C (97.7 ??F) SpO2: 97% Body mass index is 35.61 kg/m??. General: No acute distress HEENT: mucous membranes moist Neck: no JVD, supple neck Chest: Clear to auscultation, no wheezing or rales, no accessory muscle use CVS: S1-S2, regular rhythm, no murmurs Abdomen: Nondistended Extremities: No edema, warm Skin: No rashes or lesions Neuro: Alert and oriented x 3 Lab Results Component Value Date ALBUMIN 3.4 03/15/2024 ALT 31 03/15/2024 AST 18 03/15/2024 BUN 24 03/15/2024 CALCIUM 8.8 03/15/2024 CL 103 03/15/2024 CO2 26 03/15/2024 CREATININE 1.63 (H) 03/15/2024 HCT 43.6 03/15/2024 HGB 13.7 03/15/2024 PLT 317 03/15/2024 K 4.5 03/15/2024 NA 133 03/15/2024 WBC 15.4 (H) 03/15/2024 Pulmonary Function Results: 12/2022: FEV1 2.02 (78%) FVC 3.41 (95%) FEV1/FVC 0.59 TLC 82% RV 67% DLCO 52% No BD response. Mild obstruction, moderate gas exchange impairment ABG 7.44/36.2/89/24 Imaging: I personally reviewed imaging and the data revealed: Mar 2024: CT September 2023: Visit Diagnoses: 1. Lung nodules 2. Chronic hypoxemic respiratory failure (CMS/HCC) 3. Centrilobular emphysema (CMS/HCC) Impression: LLL nodules - spiculated, growing in size, in high risk patient Highest suspicion is for malignancy with lung primary. No mediastinal disease noted. No R sided nodules. He is on plavix and coumadin. Does have CKD. Plt and BUN are acceptable. We discussed nodules, possible etiologies, options including biopsy vs surveillance which I do not recommend. Discussed robotic bronchoscopy and EBUS including the procedure, preop, postop, risks. After shared decision making agree to proceed with bronchoscopy and biopsies Recommendations: -Flexible and robotic bronchoscopy, biopsies of LLL nodules, fiducial marker placements, EBUS -Postop will plan on admit for observation given severity of lung disease -PFTs and PET CT pending -Coumadin hold 5 days, gets lovenox bridge - to be coordinated with coumadin clinic -Plavix hold at least 5 full days, Cardiology clearance, and last Echo from 2023 (we do not have access to these) -Preop labs and EKG Today I have spent 63 minutes on this encounter with the following activities: Pre-visit review of chart Pre-visit review of imaging Reviewing patient provided information Personal face to face with patient (including discussion counseling) History and physical examination Medication reconciliation Discussion of laboratory results and pathology Discussion with consulting/referring physician(s) Coordination of care including with office staff and nurse navigation Documentation. Gay Rodriguez MD [place] [address] Office [phone] documented in this encounter Plan of Treatment Upcoming Encounters Date Type Department Care Team (Latest Contact Info) Description 04/10/2024 12:30 PM EST Procedure visit Pulmonol - [place] 175 [facility] [address] [place] [phone] Edy Servin 04/19/2024 1:00 PM EST Pre-Admission Testing [facility] Pre-Admission Testing [address] [place] [phone] 05/01/2024 8:15 AM EST Hospital Encounter [facility] OR [address] [place] [address], [place] [phone] Gay Rodriguez MD [address] [place] [phone] 05/01/2024 8:15 AM EST - 05/01/2024 10:00 AM EST Surgery [facility] OR [address] [place] [phone] Gay Rodriguez MD [address] [place] [phone] ROBOTIC ASSISTED BRONCHOSCOPY W. FNA, TBBX, BRUSH, BAL [[id number] (CPT??)] 05/09/2024 1:00 PM EST Office Visit Pulmonology - [place] [address] [facility] 410 [place] [phone] Gay Rodriguez MD [address] [place] [phone] 05/27/2024 2:15 PM EDT Office Visit [facility] Hematology Oncology [address] [place] [phone] Edmund Meraz MD 271 [place] [phone] 07/25/2024 1:00 PM EDT Office Visit Internal Medicine - [place] [address] [facility] 200 [place] [phone] Randa Yip MD 175 [facility] 200 [place] [phone] 01/07/2025 12:30 PM EDT Office Visit Nephrology - [facility] 305 [facility] [place] [phone] Betito Fisher MD [address] [phone] Scheduled Orders Name Type Priority Associated Diagnoses Orde r Schedule Prothrombin time with INR Lab Routine Lung nodules Chronic hypoxemic respiratory failure (CMS/HCC) Centrilobular emphysema (CMS/HCC) 1 Occurrences starting 04/02/2024 until 04/02/2025 CBC and differential Lab Routine Lung nodules Chronic hypoxemic respiratory failure (CMS/HCC) Centrilobular emphysema (CMS/HCC) 1 Occurrences starting 04/02/2024 until 04/02/2025 Basic metabolic panel Lab Routine Lung nodules Chronic hypoxemic respiratory failure (CMS/HCC) Centrilobular emphysema (CMS/HCC) 1 Occurrences starting 04/02/2024 until 04/02/2025 ECG 12 lead ECG Routine Lung nodules Chronic hypoxemic respiratory failure (CMS/HCC) Centrilobular emphysema (CMS/HCC) 1 Occurrences starting 04/02/2024 until 04/02/2025 Scheduled Procedures Name Priority Associated Diagnoses Date/Ti me BRONCHOSCOPY Lung nodule 05/01/2024 8:15 AM EST BRONCHOSCOPY NODULE 1 ROBOT Lung nodule 05/01/2024 8:15 AM EST BRONCHOSCOPY NODULE 2 ROBOT Lung nodule 05/01/2024 8:15 AM EST BRONCHOSCOPY WITH FIDUCIAL PLACEMENT Lung nodule 05/01/2024 8:15 AM EST documented as of this encounter Visit Diagnoses Diagnosis Lung nodules- Primary Other diseases of lung, not elsewhere classified Chronic hypoxemic respiratory failure (CMS/HCC) Chronic respiratory failure Centrilobular emphysema (CMS/HCC) Multiple pulmonary nodules Other diseases of lung, not elsewhere classified Lung nodule Other diseases of lung, not elsewhere classified documented in this encounter Orders Outpatient Referral Count Last Ordered Date Fir st Ordered Date AMB REFERRAL TO INTERVENTIONAL PULMONOLOGY 1 04/03/2024 documented in this encounter Additional Health Concerns Assessment Noted Time PHQ-9 Depression Total Score: 0 03/25/19 25 3:34 PM EST documented as of this encounter Care Teams Textile Chemist Relationship Specialty Start Date End Date Randa Yip MD [facility] [place] [phone] PCP - General Internal Medicine 02/16/24 documented as of this encounter
--- OUTSIDE RECORDS SUMMARY | 2024-04-09 14:18 | XMS_ITS | Encounter Summary ---
Author Organization [facility] Address [address] [place] [address] Care Team Providers Care Occupational Therapy Aide Name Role Phone Randa Yip MD Primary Care Provider [phone] Encounter Details Date Type Department Care Team (Latest Contact Info) Description 04/09/2024 Anticoagulation - Warfarin Visit Coumadin Clinic [facility] 175 175 [place] [phone] Bernadette Conner LPN Deep vein thrombosis (DVT) of distal vein of left lower extremity, unspecified chronicity (CMS/HCC) (Primary Dx); longterm (current) use of anticoagulants; Antiphospholipid antibody with [...] Description 04/10/2024 12:30 PM EST [facility] 175 [facility] 200 [place] [phone] Edy Servin 04/19/2024 1:00 PM EST Pre-Admission Testing [facility] Pre-Admission Testing [address] [place] [phone] 05/01/2024 8:15 AM EST Hospital Encounter [facility] OR [address] [place] [address], [place] [phone] Gay Rodriguez MD [address] [place] [phone] 05/01/2024 8:15 AM EST - 05/01/2024 10:00 AM EST Surgery [facility] OR [address] [place] [address], [place] [phone] Gay Rodriguez MD [address] [place] [phone] ROBOTIC ASSISTED BRONCHOSCOPY W. FNA, TBBX, BRUSH, BAL [[id number] (CPT??)] 05/09/2024 1:00 PM EST Office Visit Pulmonology - [place] 299 [facility] 410 [place] [phone] Gay Rodriguez MD [address] [place] [phone] 05/27/2024 2:15 PM EDT Office Visit [facility] Hematology Oncology [address] [place] [phone] Edmund Meraz MD 271 [place] [phone] 07/25/2024 1:00 PM EDT Office Visit Internal Medicine - [place] 175 [facility] 200 [place] [phone] Randa Yip MD 175 [facility] 200 [place] [phone] 01/07/2025 12:30 PM EDT [facility] 305 [facility] [place] [address] Betito Fisher MD [address] [facility] 204 [place] [phone] Scheduled Procedures Name Priority Associated Diagnoses Date/Ti [...] left lower extremity, unspecified chronicity (CMS/HCC)- Primary health professional (current) use of anticoagulants Long-term (current) use of anticoagulants Antiphospholipid antibody with hypercoagulable state (CMS/HCC) Lung nodule Other diseases of lung, not elsewhere classified documented in this encounter Additional Health Concerns Assessment Noted Time PHQ-9 Depression Total Score: 0 03/25/19 25 3:34 PM EST documented as of this encounter Care Teams Occupational Therapy Aide Relationship Specialty Start Date End Date Randa Yip MD 175 [facility] 200 [place] [phone] PCP - General Internal Medicine 02/16/24 documented as of this encounter
== END 2024-04-09 14:20 | disposition home or self-care (01) ==
PROVIDERS: PCP Internal Medicine; Visit Provider Hospitalist
DX: J96.11 Chronic respiratory failure with hypoxia (principal); D68.61 Antiphospholipid syndrome; G47.33 Obstructive sleep apnea (adult) (pediatric); Z99.89 Dependence on other enabling machines and devices; J41.0 Simple chronic bronchitis; J98.4 Other disorders of lung; R91.1 Solitary pulmonary nodule
CPT/HCPCS: 99214

== ENCOUNTER → 2024-04-09 13:20 | Outpatient (BNVA) | payer OTHER, SELFPAY | PROVIDERS: PCP Internal Medicine; Visit Provider Hospitalist | DX: J96.11 Chronic respiratory failure with hypoxia (principal); J41.0 Simple chronic bronchitis; J98.4 Other disorders of lung; J01.90 Acute sinusitis, unspecified; R91.1 Solitary pulmonary nodule; G47.33 Obstructive sleep apnea (adult) (pediatric); D68.61 Antiphospholipid syndrome; Z99.81 Dependence on supplemental oxygen; Z99.89 Dependence on other enabling machines and devices | CPT/HCPCS: 99212 ==

== ENCOUNTER 2024-08-09 10:28 | Outpatient (AMB) | payer OTHER, SELFPAY ==
[2024-08-09 10:33] VITALS: BP 130/52; PULSE 68; O2SAT 95; BMI 33.8
--- NOTE | 2024-08-09 10:33 | MHC.OFFVIS ---
Vital Signs 08/09/24 10:33 Height 5 ft 11 in Weight 242 lb 8.136 oz BMI 33.8 BP 130/52 L Blood Pressure Location Rt brachial Position Sitting Pulse 68 Pulse Source Pulse Oximeter Pulse Oximetry (%) 95 Oxygen Delivery Method Nasal Cannula Oxygen Flow Rate 2 Intake Visit Reasons: COPD Allergies fluticasone furoate [From Trelegy Ellipta] Allergy (Intermediate, Verified 08/09/24 10:36) Eye Swelling umeclidinium [From Trelegy Ellipta] Allergy (Intermediate, Verified 08/09/24 10:36) Eye Swelling vilanterol [From Trelegy Ellipta] Allergy (Intermediate, Verified 08/09/24 10:36) Eye Swelling Pravastatin Allergy (Severe, Uncoded 02/01/24 12:59) Anemia HPI Comments Details: The patient is a 74-year-old gentleman known COPD, obstructive sleep apnea on CPAP in addition to antiphospholipid syndrome on chronic anticoagulation. Overall the patient has been doing very well he is responding well to the Anoro medication. Unfortunately, he does have a history of glaucoma but he did have laser surgery in his pressures have been stable. He seems to be tolerating the Anoro without any side effects or changes in his vision. At this point he is using the medication every other day and he understands that if he develops any visual changes he needs to stop the medication. He also should get I examinations every 6 months. If however he is concerned he can always stop the medication. At this point he rather standing medications is working for him. The CPAP therapy has been affecting beneficial. He does uses CPAP every night for more than 4 hours a night. He does get supplies directly from [employer]. He denies any issues with the mask or any supply issues. The patient is without any other complaints. 03/20/2020 the patient is here for sick visit. Apparently he has been having worsening shortness of breath. He is also said other constitutional symptoms including dizziness and headaches. He has had elevated blood pressures. He did go to [facility] with elevated blood pressure and his ongoing symptoms of shortness of breath. He also was evaluated by his primary care doctor. However, he continues to have significant shortness of breath and he became very concerned. Therefore he made an appointment with Pulmonary. 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 He states that his Coumadin levels have been okay. He has also continue on his Anoro inhaler on a daily basis. Has not gotten any benefit from using his short-acting beta agonist. In the office we did have him go for 6 minutes walk test and the patient quickly desaturated below 87%. Patient was initially placed on 2 L and then had to be be increased to 3 L with improvement of his oxygenation. At this point the patient has acute onset respiratory failure of unclear etiology. He was tested for COVID-19 while at [facility]. Would be unreasonable to check his antibodies. In regards of his CPAP therapy the therapy continues to be affecting beneficial. He continues uses for more than 4 hours a night. 05/20/2021 the patient is here for a pulmonary follow-up visit. He is here with his . She is stating that he is still snoring significantly on the CPAP. He is wearing a nasal mask. She did getting him a chin strap that was not helpful. I explained to them that he needs to go back to full face mask to get the best effect. I did have an F 30 medium available and he did try it and seemed to be comfortable for him therefore he will continue using it. We will continue the current CPAP pressures. In the meantime the patient continues on Coumadin for his antiphospholipid syndrome. He has been having significant sinus congestion and postnasal drip as well as a sore throat. It is likely a component of sinusitis. I will treat him with some antibiotics to try to help his overall upper respiratory obstruction. It is likely that this obstruction is resulting worsening shortness of breath. He continues to use the oxygen. He is upset with the [employer] company because they have been delivering consistently. I will request to see if they can provide him with a filling station since he is using the small B-cylinders with a conserving device valve. 12/28/2021 the patient is here for pulmonary follow-up visit. Overall he continues to do well. He has been using his CPAP. The CPAP therapy has been affecting beneficial. He is using it every night. The current mask setting and set up is working a lot better for him. He is not using any oxygen while on the CPAP. Although, complains of nasal congestion, moderate in severity with post nasal drip. The nasal spray and allergy medicine are partially helpful. He does continue on the Coumadin. He is doing well with that. He does have a history of antiphospholipid syndrome needs to be on the Coumadin lifelong. In addition to that he is using his oxygen with activity. We did look at his pulmonary function studies in his diffusing capacity is up to 45% predicted suggesting that the patient does not need to use the oxygen when he is resting. Therefore he can always said off and then use it with activity. He is getting his oxygen now through [facility]. otherwise his pulmonary function studies demonstrate moderate COPD and mild restriction. He is walking regularly and is already lost weight at this point he is going to continue with current respiratory therapy. We have no plans of any changes at this time. Will have him follow-up in a year's time or sooner if any issues arise. 01/06/2023 the patient is here for a pulmonary follow-up visit. The patient has been nervous about a growing nodule that he has in his left lower lobe. The nodule was described as spiculated been increasing in size compared to the previous 1. Therefore he is concerned. However, the patient is already on oxygen supplementation in addition to that he has a history of thromboembolic disease with antiphospholipid syndrome. The patient has been on anticoagulation for a significant part of his life. Therefore, it is difficult to know how much she will tolerate as far as surgical resection. The patient did a have pulmonary function studies done at [facility] and I will request those results. The patient is concerned about the findings. He is also concern for any aggressive interventions. He is talking closely throughout thoracic surgeon. My recommendation is to consider a PET scan based on the fact that the nodules measuring 8 mm in size and based on his comorbidities and make give was helpful information to move forward. I have a discussion with the thoracic surgeon to see if he is agreeable to that otherwise will discuss further alternative options. 02/09/2023 the patient is here for a pulmonary follow-up visit. The patient overall has been feeling much better. Breathing overall is better. He did complete a course of antibiotics. He continues on his blood thinners. The patient has been using his oxygen with good effect. He has also been using the CPAP at nighttime. The CPAP therapy continues to be affecting beneficial. He does use it for more than 4 hours a night. The patient did undergo a PET scan to follow-up with the 8 mm spiculated nodular density. Although it appears that has not increased in size since his last CT scan in 6 months. Also be FDG activity is down to 1.5. We know this is a small subcentimeter pulmonary nodule sub PET scan does have his limitations although is reassuring to find the nodule to be low in metabolic activity. The patient will be following up with thoracic surgery. Likely will continue surveillance of this nodule. The patient is high risk for any surgical interventions. 09/27/2023 the patient is here for a pulmonary follow-up visit. The patient overall has been doing well from a respiratory status. He continues use the oxygen with good effect. The patient does have oxygen that he uses continuously throughout the day and also at nighttime. At nighttime he also uses CPAP. CPAP therapy has been affecting beneficial. He does uses CPAP more than 4 hours a night. I will make sure to send a script in order for him to continue getting supplies readily. Patient also continues on the Coumadin for his antiphospholipid syndrome. Has a high risk for developing blood clots. His followed closely by Hematology. He has underlying emphysema. Extensive and amount. Resulting the diffusion impairment in the oxygen needs. The patient also has pulmonary nodules bilaterally. The largest nodule measuring 8 mm in size in the left lower lobe close to the fissure. No clear airway going to this distribution. The nodule did not have any significant PET activity and has not significantly changed in size which is reassuring. In view of the patient is comorbidities I do not encouraged any invasive or semi-invasive diagnostic interventions. Patient should have repeat CT scan in 6-12 months. He will be following up with Interventional Pulmonary and they can discuss further their recommendations. in the meantime the patient will continue with current respiratory therapy and will continue with CPAP at nighttime in the oxygen as prescribed. 02/01/2024 the patient is here for a pulmonary follow-up visit. Overall he is doing okay. He is recovering from COVID-19. Seems to be doing better. The patient did undergo a sleep study. I did personally review it although was a limited study because he could not sleep well. Seems that he does need additional CPAP support so therefore we will request a replacement machine with the higher pressure at this time 12-18 cm of water. The patient does not need any oxygen with it. He does use oxygen during the daytime that is good. In the meantime will following closely the left-sided pulmonary nodule measuring about 8 mm in size. The last CT scan from 09/30/2023 that Lena demonstrating no significant changes. Therefore, we should repeat it in 6 months. He does not want any aggressive interventions at this time. Therefore will hold off on any interventional pulmonary procedures and which is continue to follow the nodule in 04/01/2024. The patient also will need to get a replacement CPAP. Will send a prescription over to his DME company that is been very helpful for him. The CPAP therapy has been very affecting beneficial for him. Therefore he needs to continue it will needs a replacement because machine now is noting that the motor is not working appropriately. Patient will follow-up in the end of March to follow up with his CT scan and to see how he is responding to the new CPAP. he is also having symptoms sinusitis. Will go ahead and treat that as well. Sinus pressure cough chest congestion. Lungs sound clear. 04/09/2024 the patient is here for a pulmonary follow-up visit. Overall he is doing okay. He did have a recent CT scan of the chest which I did talk to him over the phone initially. Appeared that he had 2 nodules that were spiculated and growing. Now measuring 12 mm in size. I did refer him to thoracic surgery who then referred him to interventional pulmonary. He is scheduled to undergo a PET scan and then also robotic bronchoscopy at [place]. The patient has also been using his CPAP. CPAP therapy has been very affecting beneficial. He tries to use it every night for more than 4 hours. Although, his current CPAP is about 14 years old and now is resulting in motor malfunctioning and it needs to be replaced. Will request an new replacement APAP local DME company, [facility]. He is also using his oxygen good effect. He did get his POC been working affecting beneficial. Will follow-up in 3-4 months in follow-up after his surgery. If he has any issues prior to that he will call for an earlier assessment. 08/09/2024 the patient is here for a pulmonary follow-up visit. Overall he is doing well. He was diagnosed with stage I adenocarcinoma with navigational bronchoscopy. Ultimately he is a poor candidate for surgery because of his comorbidities and his respiratory failure. Therefore stereotactic radiation would be a very good option for him. I believe he is going to undergo an MRI and also a PET scan just for staging again to make sure that this is only a limited to that area. I suspect that he will do well with the stereotactic radiation. In the meantime he continues with the anticoagulation for his thromboembolic disease. In addition he continues on the CPAP. He is pulling a felt special filter on the CPAP now to try to help him with staying healthy and avoid infections. But, using the filter causes the pressure to be less. Therefore I did increase the pressure from 18-16 to 12-16. He will try the higher pressure if he has some difficulties he will call me. He did tried in the office any did tolerated. Also did provide him an N30 I medium mask that he can try because he is getting the wrong size from the DME. I will request an large mask for him to try as well I will send that to his DME company, [employer]. Otherwise the patient is doing well will follow-up in 4-6 months. He has any issues prior to that he will call for an earlier assessment. [facility] Medical History (Updated 08/11/24 @ 21:56 by Vern Hammond MD) Lung cancer Pulmonary nodule Chronic restrictive lung disease Chronic respiratory failure Anti-phospholipid antibody syndrome Hypoxia RUFUS on CPAP COPD (chronic obstructive pulmonary disease) Social History Patient Tobacco Use Status: Former Tobacco user Tobacco use type: Cigarette Years Smoked: 14 years old Review of Systems Const Denies night sweats and Denies snoring ENT Denies change in voice, Denies lip swelling, Denies mouth pain, Reports nasal congestion, Reports nasal discharge, Reports sinus pain, Reports sinus pressure, Denies sore throat and Denies tongue swelling Card Denies chest pain and Reports dyspnea on exertion Resp Reports chest congestion, Reports cough, Reports dyspnea on exertion and Denies snoring GI Denies abdominal pain Musc Denies no additional complaints Neuro Denies Neuro-related abnormal movements Psych Denies no additional complaints Skyler/Lymph Denies easy bleeding and Denies lymphadenopathy Aller/Immun Denies lip swelling and Denies tongue swelling Physical Exam Vital Signs: Last Vital Signs Pulse 68 08/09/24 10:33 BP 130/52 L 08/09/24 10:33 Pulse Ox 95 08/09/24 10:33 Oxygen Delivery Method Nasal Cannula 08/09/24 10:33 Oxygen Flow Rate 2 08/09/24 10:33 BMI result Body Mass Index 33.8 Const General: alert HEENT General nose exam: Nasal discharge present Mouth: moist mucous membranes Throat: Yes posterior oropharynx abnormal ( Erythema without any thrush or exudate) Neck Neck: Yes normal visual inspection, Yes full ROM and Yes no lymphadenopathy Chest Chest palpation & inspection: normal inspection of the chest Resp Auscultation: no rales, no rhonchi, no wheezes and diminished lung sounds Cardio Rate: regular rate and tachycardic Rhythm: regular rhythm Heart sounds: S1 normal heart sound present and S2 normal heart sound present GI Palpation (GI): Soft to palpation and nontender Auscultation: normal bowel sounds General: Yes no CVA tenderness Back/Spine/Pelvis Back: no CVA tenderness Skin General skin exam: rashes and/or lesions noted Assessment & Plan Assessment & Plan (1) Chronic respiratory failure: Comment: Due to extensive emphysema Code(s): J96.10 - Chronic respiratory failure, unspecified whether with hypoxia or hypercapnia Category: Medical Qualifiers: Respiratory failure complication: hypoxia Qualified Code(s): J96.11 - Chronic respiratory failure with hypoxia (2) Anti-phospholipid antibody syndrome: Code(s): D68.61 - Antiphospholipid syndrome Category: Medical (3) RUFUS on CPAP: Code(s): G47.33 - Obstructive sleep apnea (adult) (pediatric); Z99.89 - Dependence on other enabling machines and devices Category: Medical (4) COPD (chronic obstructive pulmonary disease): Code(s): J44.9 - Chronic obstructive pulmonary disease, unspecified Category: Medical Qualifiers: COPD type: chronic bronchitis Chronic bronchitis type: simple Qualified Code(s): J41.0 - Simple chronic bronchitis (5) Chronic restrictive lung disease: Comment: mild Code(s): J98.4 - Other disorders of lung Category: Medical (6) Pulmonary nodule: Comment: 8 mm spiculated nodule, concerning Code(s): R91.1 - Solitary pulmonary nodule Category: Medical (7) Sinusitis: Code(s): J32.9 - Chronic sinusitis, unspecified Category: Medical Qualifiers: Sinusitis location: unspecified location Chronicity: subacute Qualified Code(s): J01.90 - Acute sinusitis, unspecified (8) Lung cancer: Comment: Likely stage 1 AdenoCA, high risk for surgery Code(s): C34.90 - Malignant neoplasm of unspecified part of unspecified bronchus or lung Category: Medical Qualifiers: Laterality: left Lung location: lower lobe of lung Qualified Code(s): C34.32 - Malignant neoplasm of lower lobe, left bronchus or lung Plan Awaiting PET scan, PFTs and LLL biopsy by [facility]. Would not be a candidate for surgery due to his hypoxia. but would be a good candidate for SBRT if local disease continue fluticasone nasal spray continue Claritin daily Continue APAP with fullface mask, F 30 medium->N20 large Continue Anoro daily Continue oxygen supplementation. He is using at 2 L pulse with activity.DME is [facility] now continue coumadin for antiphospholipid syndrome Likely start SBRT therapy for lung CA Follow-up in 4-6 months Coding Level of Care Code Est Pt Level 4 (69627) Complex EM visit Add On G2211 Diagnoses Chronic respiratory failure with hypoxia J96.11 Respiratory failure complication: hypoxia Anti-phospholipid antibody syndrome D68.61 RUFUS on CPAP G47.33; Z99.89 Simple chronic bronchitis J41.0 COPD type: chronic bronchitis Chronic bronchitis type: simple Chronic restrictive lung disease J98.4 Pulmonary nodule R91.1 Subacute sinusitis, unspecified location J01.90 Sinusitis location: unspecified location Chronicity: subacute Malignant neoplasm of lower lobe of left lung C34.32 Laterality: left Lung location: lower lobe of lung Time Spent (min) 20
== END 2024-08-09 11:14 | disposition home or self-care (01) ==
LOC: HO.HPS 10:28
PROVIDERS: PCP Internal Medicine; Visit Provider Hospitalist
DX: J96.11 Chronic respiratory failure with hypoxia (principal); D68.61 Antiphospholipid syndrome; G47.33 Obstructive sleep apnea (adult) (pediatric); Z99.89 Dependence on other enabling machines and devices; J41.0 Simple chronic bronchitis; J98.4 Other disorders of lung; R91.1 Solitary pulmonary nodule; J01.90 Acute sinusitis, unspecified; C34.32 Malignant neoplasm of lower lobe, left bronchus or lung
CPT/HCPCS: 99214; G2211

== ENCOUNTER → 2024-08-09 10:28 | Outpatient (BNVA) | payer OTHER, SELFPAY | PROVIDERS: PCP Internal Medicine; Visit Provider Hospitalist | DX: R91.1 Solitary pulmonary nodule (principal); J96.11 Chronic respiratory failure with hypoxia; J41.0 Simple chronic bronchitis; J98.4 Other disorders of lung; J01.90 Acute sinusitis, unspecified; D68.61 Antiphospholipid syndrome; G47.33 Obstructive sleep apnea (adult) (pediatric); C34.32 Malignant neoplasm of lower lobe, left bronchus or lung; Z99.89 Dependence on other enabling machines and devices; Z79.01 Long term (current) use of anticoagulants | CPT/HCPCS: 99212 ==

== ENCOUNTER 2025-01-13 12:44 | Outpatient (AMB) | payer OTHER, SELFPAY ==
--- OUTSIDE RECORDS SUMMARY | 2025-01-09 12:15 | XMS_ITS | Encounter Summary ---
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, CMS/HCC V28); Asymptomatic varicose veins of lower extremity, unspecified laterality; Deep vein thrombosis (DVT) of distal vein of right lower extremity, unspecified chronicity (CMS/HCC V24, CMS/HCC V28); PVD (peripheral vascular disease) (CMS/HCC V24); intermediate (current) use of anticoagulants; Antiphospholipid antibody with hypercoagulable state (CMS/HCC V24); Stage 3 chronic kidney disease, unspecified whether stage 3a or 3b CKD (CMS/HCC V24, CMS/HCC V28) Social History Tobacco Use Types Packs/Day Years Used Date Smoking Tobacco: Former Cigarettes Smokeless Tobacco: Never Alcohol Use Standard Drinks/Week Comments No 0 (1 standard drink = 0.6 oz pur e alcohol) Sex and Gender Information Value Date Recorded Sex Assigned at Male 05/08/2024 9:13 AM EST Legal Sex Male 11:19 PM EST Gender Identity Male 05/08/2024 9:13 AM EST Sexual Orientation Choose not to disclose 2024 9:13 AM EST Occupation Industry Job Start Date Job End Date Retired Not on file Not on file Not on file documented as of this encounter Plan of Treatment Upcoming Encounters Date Type Department Care Team (Late st Contact Info) Description 01/14/2025 2:30 PM EST Appointment [facility] Radiation Oncology [address] [place] [phone] Ni Mccrary NP [address] [place] [address] 01/22/2025 2:15 PM EST Office Visit Orthopedic Surgery - [place] [address] [facility] [address] [place] [phone] Reynaldo Stone DPM [address] [place] [phone] 03/26/2025 2:00 PM EST Telemedicine Internal Medicine [facility] 175 [facility] [address] [place] [phone] Randa Yip MD [address] [place] [phone] 05/28/2025 11:15 AM EDT Office Visit [facility] Hematology Oncology [address] [place] [phone] Edmund Meraz MD [address] [place] [phone] 01/06/2026 12:45 PM EDT Office Visit [facility]phrology [facility] [place] [address] [place] [phone] Betito Fisher MD [address] [phone] documented as of this encounter Procedures Procedure Name Priority Date/Time Associated Diagnosis Comments MICROALBUMIN CREATININE URINE RATIO Routine 01/09/2025 2:28 PM EDT Stage 3 chronic kidney disease, unspecified whether stage 3a or 3b CKD (CMS/HCC V24, CMS/HCC V28) VITAMIN D 25 HYDROXY Routine 01/09/2025 1:17 PM EDT Stage 3 chronic kidney disease, unspecified whether stage 3a or 3b CKD ([facility]/HCC V24, CMS/HCC V28) PARATHYROID HORMONE INTACT Routine 01/09/2025 1:17 PM EDT Stage 3 chronic kidney disease, unspecified whether stage 3a or 3b CKD ([facility]/HCC V24, CMS/[facility] V28) BASIC METABOLIC PANEL Routine 01/09/2025 1:17 PM EDT Stage 3 chronic kidney disease, unspecified whether stage 3a or 3b CKD ([facility]/HCC V24, CMS/HCC V28) CBC WITH AUTO DIFFERENTIAL Routine 01/09/2025 1:16 PM EDT 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, [facility] V28) CREATININE, SERUM Routine 01/09/2025 1:1 6 PM EDT Autoimmune hemolytic anemia ([facility] V24, CMS/[facility] V28) PROTHROMBIN TIME WITH INR Routine 01/09/2025 1:16 PM EDT Asymptomatic varicose veins of lower extremity, unspecified laterality Deep vein thrombosis (DVT) of distal vein of right lower extremity, unspecified chronicity ([facility]/HCC V24, CMS/HCC V28) PVD (peripheral vascular disease) ([facility] V24) intermediate (current) use of anticoagulants Antiphospholipid antibody with hypercoagulable state ([facility] V24) CBC AND DIFFERENTIAL Routine 01/09/2025 1:16 PM EDT 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, [facility]/HCC V28) BUN Routine 01/09/2025 1:16 PM EDT 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, CMS/HCC V28) BILIRUBIN, TOTAL Routine 01/09/2025 1:16 PM EDT 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, [facility] V28) documented in this encounter Results * Microalbumin creatinine urine ratio (01/09/2025 2:28 PM EDT) Creatinine, Urine 106.0 mg/dL LAB CHEMISTRY METHOD 01/09/2025 5:23 PM EDT [facility] Microalb, Ur 20.8 0.0 - 29.0 mg/L LAB CHEMISTRY METHOD 01/09/2025 5:23 PM EDT [facility] Microalb/Creat Ratio 20 <30 mg/g creat LAB CHEMISTRY METHOD 01/09/2025 5:23 PM EDT [facility] Urine Urine specimen obtained by clean catch procedure / Unknown Non-blood Collection / Unknown 01/09/2025 2:28 PM EDT 01/09/2025 4:34 PM EDT us Betito Fisher MD LAB URINE ORDERABLES Final Res ult Performing Organization Address City/[facility]/ZIP Co de Phone Number [facility] [address] [place] [address], * Vitamin D 25 hydroxy (01/09/2025 1:17 PM EDT) Vit D, 25-Hydroxy 57.0 30.0 - 80.0 ng/mL LAB CHEMISTRY METHOD 01/09/2025 5:49 PM EDT [facility] Blood Venous blood specimen / Unknown Venipuncture / Unknown 01/09/2025 1:17 PM EDT 01/09/2025 4:35 PM EDT us Betito Fisher MD LAB BLOOD ORDERABLES Final Res ult [facility] [address] [place] [address], [place] [phone] * Parathyroid hormone intact (01/09/2025 1:17 PM EDT) PTH 32.7 18.5 - 88.0 pcg/mL LAB CHEMISTRY METHOD 01/09/2025 5:50 PM [facility] Blood Venous blood specimen / Unknown Venipuncture / Unknown 01/09/2025 1:17 PM EDT 01/09/2025 4:35 PM EDT us Betito Fisher MD LAB BLOOD ORDERABLES Final Res ult [facility] [address] [place] [address], * (ABNORMAL) Basic metabolic panel (01/09/2025 1:17 PM EDT) [facility] Sodium 137 133 - 145 mmol/L LAB CHEMISTRY METHOD 01/09/2025 5:04 PM [facility] Potassium 4.5 3.5 - 5.5 mmol/L LAB CHEMISTRY METHOD 01/09/2025 5:04 PM [facility] Chloride 103 96 - 110 mmol/L LAB CHEMISTRY METHOD 01/09/2025 5:04 PM [facility] CO2 27 21 - 32 mmol/L LAB CHEMISTRY METHOD 01/09/2025 5:04 PM [facility] Anion Gap 7 3 - 11 LAB CHEMISTRY METHOD 01/09/2025 5:04 PM [facility] Glucose 157(H) 70 - 100 mg/dL LAB CHEMISTRY METHOD 01/09/2025 5:04 PM [facility] BUN 19 5 - 25 mg/dL LAB CHEMISTRY METHOD 01/09/2025 5:04 PM [facility] Creatinine 1.45(H) 0.70 - 1.30 mg/dL LAB CHEMISTRY METHOD 01/09/2025 5:04 PM [facility] eGFR 51(L) >=60 mL/min/1. 73m2 LAB CHEMISTRY METHOD 01/09/2025 5:04 PM EDT [facility] Comment:Calculation based on the Chronic Kidney Disease Epidemiology Collaboration (CKD-EPI) equation refit without adjustment for race. BUN/Creatinine Ratio 13.1 LAB CHEMISTRY METHOD 01/09/2025 5:04 PM EDT [facility] Calcium 9.1 8.5 - 10.5 mg/dL LAB CHEMISTRY METHOD 01/09/2025 5:04 PM EDT [facility] Blood Venous blood specimen / Unknown Venipuncture / Unknown 01/09/2025 1:17 PM EDT 01/09/2025 4:35 PM EDT us Betito Fisher MD LAB BLOOD ORDERABLES Final Res ult [facility] [address] [place] [address], * (ABNORMAL) CBC auto differential (01/09/2025 1:16 PM EDT) WBC 15.4(H) 4.8 - 10.8 K/mcL LAB HEMETOLOGY METHOD 01/09/2025 4:45 PM EDT [facility] RBC 5.50 4.50 - 5.50 M/mcL LAB HEMETOLOGY METHOD 01/09/2025 4:45 PM EDT [facility] Hemoglobin 15.0 13.5 - 17.5 g/dL LAB HEMETOLOGY METHOD 01/09/2025 4:45 PM EDT [facility] Hematocrit 48.0 42.0 - 54.0 % LAB HEMETOLOGY METHOD 01/09/2025 4:45 PM EDT [facility] MCV 87.8 79.0 - 98.0 FL LAB HEMETOLOGY METHOD 01/09/2025 4:45 PM EDT [facility] MCH 27.4 27.0 - 32.0 pcg LAB HEMETOLOGY METHOD 01/09/2025 4:45 PM EDT [facility] MCHC 31.3(L) 32.0 - 37.0 g/dL LAB HEMETOLOGY METHOD 01/09[facility]2025 4:[facility] RDW 15.8(H) 11.0 - 15.0 % LAB HEMETOLOGY METHOD 01/09/2025 4:45 PM EDT [facility] Platelets 385 130 - 400 K/mcL LAB HEMETOLOGY METHOD 01/09/2025 4:45 PM EDT [facility] MPV 11.1(H) 7.0 - 11.0 FL LAB HEMETOLOGY METHOD 01/09/2025 4:[facility] NRBC 0.0 <1.0 % LAB HEMETOLOGY METHOD 01/09/2025 4:45 [facility] NRBC Absolute 0.00 <0.10 K/mcL LAB HEMETOLOGY METHOD 01/09/2025 4:45 [facility] Neutrophils Relative 68.8 % LAB HEMETOLOGY METHOD 01/09/2025 4:45 [facility] Lymphocytes Relative 24.2 % LAB HEMETOLOGY METHOD 01/09/2025 4:45 PM EDT [facility] Monocytes Relative 5.8 % LAB HEMETOLOGY METHOD 01/09/2025 4:45 PM EDT [facility] Eosinophils Relative 0.3 % LAB HEMETOLOGY METHOD 01/09/2025 4:45 PM EDT [facility] Basophils Relative 0.3 % LAB HEMETOLOGY METHOD 01/09/2025 4:45 [facility] Immature Granulocytes Relative 0.6 % LAB HEMETOLOGY METHOD 01/09/2025 4:45 PM EDT [facility] Neutrophils Absolute 10.59(H) 1.50 - 7.00 K/mcL LAB HEMETOLOGY METHOD 01/09/2025 4:45 PM EDT [facility] Lymphocytes Absolute 3.73 1.00 - 5.00 K/mcL LAB HEMETOLOGY METHOD 01/09/2025 4:45 PM EDT [facility] Monocytes Absolute 0.90 0.20 - 1.00 K/mcL LAB HEMETOLOGY METHOD 01/09/2025 4:45 PM EDT [facility] Eosinophils Absolute 0.05 0.00 - 0.50 K/[facility] LAB HEMETOLOGY METHOD 01/09/2025 4:45 PM EDT [facility] Basophils Absolute 0.05 0.00 - 0.20 K/mcL LAB HEMETOLOGY METHOD 01/09/2025 4:45 PM EDT [facility] Immature Granulocytes Absolute 0.10(H) 0.00 - 0.03 K/mcL LAB HEMETOLOGY METHOD 01/09/2025 4:45 PM EDT [facility] Blood Venous blood specimen / Unknown Venipuncture / Unknown 01/09/2025 1:16 PM EDT 01/09/2025 4:36 PM EDT us Subrambecca Meraz MD LAB BLOOD ORDERABLE S Final Result [facility] [address] [place] [address], * (ABNORMAL) Prothrombin time with INR (01/09/2025 1:16 PM EDT) Protime 24.6(H) 10.6 - 13.9 sec LAB COAGULATION METHOD 01/09/2025 2:43 PM EDT [facility] INR 2.0 LAB COAGULATION METHOD 01/09/2025 2:43 PM EDT [facility] Blood Venous blood specimen / Unknown Venipuncture / Unknown 01/09/2025 1:16 PM EDT 01/09/2025 2:34 PM EDT Randa Yip MD LAB BLOOD ORDERABLES Final Res ult Performing Organization Address [facility]/ZIP Co de Phone Number [facility] [address] [place] [address], [place] [phone] * Bilirubin, total (01/09/2025 1:16 PM EDT) Total Bilirubin 0.7 0.0 - 1.4 mg/dL LAB CHEMISTRY METHOD 01/09/2025 5:02 PM EDT [facility] Blood Venous blood specimen / Unknown Venipuncture / Unknown 01/09/2025 1:16 PM EDT 01/09/2025 4:35 PM EDT Edmund Meraz MD LAB BLOOD ORDERABLE S Final Result Performing Organization Address [facility] Co de Phone Number [facility] [address] [place] [address], [place] [phone] * (ABNORMAL) Creatinine (01/09/2025 1:16 PM EDT) Creatinine 1.37(H) 0.70 - 1.30 mg/dL LAB CHEMISTRY METHOD 01/09/2025 5:02 PM EDT [facility] eGFR 54(L) >=60 mL/min/1. 73m2 LAB CHEMISTRY METHOD 01/09/2025 5:02 PM EDT [facility] Comment:Calculation based on the Chronic Kidney Disease Epidemiology Collaboration (CKD-EPI) equation refit without adjustment for race. Blood Venous blood specimen / Unknown Venipuncture / Unknown 01/09/2025 1:16 PM EDT 01/09/2025 4:35 PM EDT [facility] LAB BLOOD ORDERABLE S Final Result Performing Organization Address [facility]/ZIP Co de Phone Number [facility] [address] [place] [address], [place] [phone] * BUN (01/09/2025 1:16 PM EDT) BUN 20 5 - 25 mg/dL LAB CHEMISTRY METHOD 01/09/2025 5:02 PM EDT [facility] Blood Venous blood specimen / Unknown Venipuncture / Unknown 01/09/2025 1:16 PM EDT 01/09/2025 4:35 PM EDT [facility] Meraz MD LAB BLOOD ORDERABLE S Final Result Performing Organization Address [facility]/ZIP Co de Phone Number [facility] [address] [place] [address], [place] [phone] documented in this encounter Visit Diagnoses Diagnosis Autoimmune hemolytic anemia ([facility] V24, [facility] V28) Autoimmune hemolytic anemias Asymptomatic varicose veins of lower extremity, unspecified laterality Deep vein thrombosis (DVT) of distal vein of right lower extremity, unspecified chronicity ([facility]/HCC V24, [facility] V28) PVD (peripheral vascular disease) ([facility] V24) 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 Long-term (current) use of anticoagulants Antiphospholipid antibody with hypercoagulable state ([facility] V24) Stage 3 chronic kidney disease, unspecified whether stage 3a or 3b CKD ([facility] V24, [facility] V28) documented in this encounter Additional Health Concerns Assessment Noted Time PHQ-9 Depression Total Score: 0 03/25/19 25 3:34 PM EST documented as of this encounter Care Teams Gold Miner Relationship Specialty Start Date End Date Randa Yip MD [address] [phone] PCP - General Internal Medicine 02/16/24 documented as of this encounter
--- OUTSIDE RECORDS SUMMARY | 2025-01-09 12:55 | XMS_ITS | Encounter Summary ---
Author Organization [facility] Address [address] [place] [address] Care Team Providers Care Drug Coordinator Name Role Phone Randa Yip MD Primary Care Provider [phone] Reason for Referral * Imaging (Routine) - Authorized Specialty Diagnoses / Procedures Referred By Contac t Referred To Contact Radiology Diagnoses Malignant neoplasm of lower lobe of left lung (CMS/HCC V24, CMS/HCC V28) Procedures PET CT Skull to Mid Thigh Subsequent Rosalba Santiago MD [address] [place] [address] Phone: tel: fax: [facility] PET Scan [address] [place] [address] Phone: tel: Referral ID Status Reason Start Date Expiration Date V isits Requested Visits Authorized [id number] Authorized 11/14/2024 11/14/2025 1 1 Reason for Visit * Imaging (Routine) - Authorized Specialty Diagnoses / Procedures Referred By Contac t Referred To Contact Radiology Diagnoses Malignant neoplasm of lower lobe of left lung (CMS/HCC V24, CMS/HCC V28) Procedures PET CT Skull to Mid Thigh Subsequent Rosalba Santiago MD [address] [place] [address] Phone: tel: fax: [facility] PET Scan [address] [place] [address] Phone: tel: Referral ID Status Reason Start Date Expiration Date V isits Requested Visits Authorized [id number] Authorized 11/14/2024 11/14/2025 1 1 Encounter Details Date Type Department Care Team (Latest Contact Info) Description 01/09/2025 1:55 PM EDT Hospital Encounter [facility] PET Scan [address] [place] [phone] Malignant neoplasm of lower lobe of left lung (CMS/HCC V24, CMS/HCC V28) Social History Tobacco [...] Sign Reading Time Taken Comments Blood Pressure - - Pulse - - Temperature - - Respiratory Rate - - Oxygen Saturation - - Inhaled Oxygen Concentration - - Weight 110 kg (243 lb) 01/09/2025 4:01 PM EDT Height 180.3 cm (5' 11 ) 01/09/2025 4:01 PM EDT Body Mass Index 33.89 01/09/2025 4:01 PM EDT documented in this encounter Plan of Treatment Upcoming Encounters Date Type Department Care Team (Late st Contact Info) Description 01/14/2025 2:30 PM EST Appointment [facility] Radiation Oncology [address] [place] [phone] Ni Mccrary NP [address] [place] [address] 01/22/2025 2:15 PM EST Office Visit Orthopedic Surgery - [place] [address] [facility] [address] [place] [phone] Reynaldo Stone, NOAH [address] [place] [phone] 03/26/2025 2:00 PM EST Telemedicine Internal Medicine - [place] [address] [facility] [address] [place] [phone] Randa Yip MD [address] [place] [phone] 05/28/2025 11:15 AM EDT Office Visit [facility] Hematology Oncology [address] [place] [phone] Edmund Meraz MD [address] [place] [phone] 01/06/2026 12:45 PM EDT [facility] [address] [place] [phone] Betito Fisher MD [address] [facility] [address] [place] [phone] documented as of this encounter Procedures Procedure Name Priority Date/Time Associated Diagnosis Comments PET CT SKULL TO MID THIGH SUBSEQUENT Routine 01/09/2025 4:35 PM EDT Malignant neoplasm of lower lobe of left lung (CMS/HCC V24, CMS/HCC V28) documented in this encounter Results * PET CT Skull to Mid Thigh Subsequent (01/09/2025 4:35 PM EDT) Anatomical Region Laterality Modality Body Radiographic Therese ging 01/10/2025 4:59 AM EDT Impressions 01/10/2025 6:05 AM EDT 1. Interval increase in FDG activity at the GE junction with new FDG avid perigastric lymph node. These findings are concerning for underlying malignancy with metastatic disease. Correlation with endoscopy is recommended. 2. Interval decrease in size and FDG activity of left lower lobe biopsy-proven malignant pulmonary nodule. 3. Interval increase in opacities in the left lower lobe which may represent posttreatment change or superimposed infection/inflammation. Continued follow-up is recommended. Please note: The CT was acquired at a low radiation dose settings. The images are of nondiagnostic quality and used solely for purposes of attenuation correction and slice localization for the PET scan. If a diagnostic CT study is desired it must be ordered separately. -------- FINAL REPORT -------- Dictated By: Erin Doherty Dictated Date: 01/10/2025 04:59 ET Assigned Physician: Erin Doherty Reviewed and Electronically Signed By: Erin Doherty Signed Date: 01/10/2025 06:05 ET Workstation ID: [id number] Transcribed By: Self Edit Transcribed Date: 01/10/2025 04:59 ET Narrative 01/10/2025 6:05 AM EDT INDICATION: Left lower lobe lung cancer status post SBRT. Restaging. TECHNIQUE: FDG PET-CT imaging was performed from the skull bases through the thighs in a single acquisition with data set reconstructed in axial, coronal, and sagittal planes at the computer workstation with fused data from both the PET imaging study and attenuation correction CT. The CT portion of the examination was done strictly for attenuation correction and is not a true diagnostic CT examination. DLP: 1389 mGy-cm Radiopharmaceutical: 11.4 mCi of F-18 FDG IV. Blood glucose: 163 mg/dl. COMPARISON: August 2024 FINDINGS: HEAD AND NECK: No abnormal FDG activity. Coastal thickening of the ethmoid air cells and sphenoid sinuses as well as the maxillary sinuses in keeping with pansinusitis. THORAX: Interval decrease in size of left lower lobe pulmonary nodule with fiducial marker SUV max 1.6 (previously 2.5). Left upper lobe juxtapleural atelectasis/scarring SUV Max 1.1 (previously 1.5). Interval increase in opacities in the left lower lobe measuring up to SUV Max 3.5 (previously 2.1). ABDOMEN/PELVIS: Interval increase in FDG activity at the GE junction SUV max 17.7. New 9 mm perigastric FDG avid lymph node SUV max 22.9. Cholelithiasis. Diverticulosis. Nonspecific bowel activity within the anal canal and rectosigmoid junction. Nonspecific activity within the terminal ileum. MUSCULOSKELETAL: No abnormal FDG activity. Procedure Note Erin Doherty MD - 01/10/2025 INDICATION: Left lower lobe lung cancer status post SBRT. Restaging. TECHNIQUE: FDG PET-CT imaging was performed from the skull bases throughthe thighs in a single acquisition with data set reconstructed in axial,coronal, and sagittal planes at the computer workstation with fused datafrom both the PET imaging study and attenuation correction CT. The CTportion of the examination was done strictly for attenuation correctionand is not a true diagnostic CT examination. DLP: 1389 mGy-cm Radiopharmaceutical: 11.4 mCi of F-18 FDG IV. Blood glucose: 163 mg/dl. COMPARISON: August 2024 FINDINGS: HEAD AND NECK: No abnormal FDG activity. Coastal thickening of theethmoid air cells and sphenoid sinuses as well as the maxillary sinuses inkeeping with pansinusitis. THORAX: Interval decrease in size of left lower lobe pulmonary nodule withfiducial marker SUV max 1.6 (previously 2.5). Left upper lobe juxtapleural atelectasis/scarring SUV Max 1.1 (previously1.5). Interval increase in opacities in the left lower lobe measuring up to SUVMax 3.5 (previously 2.1). ABDOMEN/PELVIS: Interval increase in FDG activity at the GE junction SUVmax 17.7. New 9 mm perigastric FDG avid lymph node SUV max 22.9. Cholelithiasis. Diverticulosis. Nonspecific bowel activity within theanal canal and rectosigmoid junction. Nonspecific activity within theterminal ileum. MUSCULOSKELETAL: No abnormal FDG activity. IMPRESSION: 1. Interval increase in FDG activity at the GE junction with new FDG avidperigastric lymph node. These findings are concerning for underlyingmalignancy with metastatic disease. Correlation with endoscopy isrecommended. 2. Interval decrease in size and FDG activity of left lower lobebiopsy-proven malignant pulmonary nodule. 3. Interval increase in opacities in the left lower lobe which mayrepresent posttreatment change or superimposed infection/inflammation.Continued follow-up is recommended. Please note: The CT was acquired at a low radiation dose settings. The images are ofnondiagnostic quality and used solely for purposes of attenuationcorrection and slice localization for the PET scan. If a diagnostic CTstudy is desired it must be ordered separately. -------- FINAL REPORT -------- Dictated By: Erin Doherty Dictated Date: 01/10/2025 04:59 ET Assigned Physician: Erin Doherty Reviewed and Electronically Signed By: Erin Doherty Signed Date: 01/10/2025 06:05 ET Workstation ID: [id number] Transcribed By: Self Edit Transcribed Date: 01/10/2025 04:59 ET Rosalba Santiago MD IMG [place] PROCEDURES Final Result documented in this encounter Visit Diagnoses Diagnosis Malignant neoplasm of lower lobe of left lung (CMS/HCC V24, CMS/HCC V28) documented in this encounter Administered Medications Inactive Administered Medications - up to 3 most recent administrations Medication Order MAR Action Action Date Dose Rate Site F-18 FDG pet diag radio-isotope injection 11.4 millicurie 11.4 millicurie, intravenous, Once in imaging, Starting on Selina 01/09/25 at 1515, For 1 dose Given 01/09/2025 3:02 PM EDT 11.4 millicuries documented in this encounter Orders Medications Ordered That Yon ht Not Have Been Administered Count Last Ordered Date First Ordered Date F-18 FDG pet diag radio-isot ope injection 11.4 millicurie 1 01/09/2025 documented in this encounter Additional Health Concerns Assessment Noted Time PHQ-9 Depression Total Score: 0 03/25/19 25 3:34 PM EST documented as of this encounter Care Teams Drug Coordinator Relationship Specialty Start Date End Date Randa Yip MD [address] [place] [phone] PCP - General Internal Medicine 02/16/24 documented as of this encounter
[2025-01-13 12:57] VITALS: BP 138/50; PULSE 68; O2SAT 93; BMI 34.0
--- NOTE | 2025-01-13 12:57 | A.OFFVIS_ITS ---
Vital Signs 01/13/25 12:57 Height 5 ft 11 in Weight 243 lb 9.773 oz BMI 34.0 BP 138/50 L Blood Pressure Location Lt brachial Position Sitting Pulse 68 Pulse Source Pulse Oximeter Pulse Oximetry (%) 93 Oxygen Delivery Method Nasal Cannula Oxygen Flow Rate 3 Intake Visit Reasons: COPD Carving Machine Operator Required: Yes Carving Machine Operator Services: Carving Machine Operator Offered & Declined Carving Machine Operator Name: MD speaks sao tomean Allergies fluticasone furoate (From Trelegy Ellipta) Allergy (Intermediate, Verified 13:00) Eye Swelling umeclidinium (From Trelegy Ellipta) Allergy (Intermediate, Verified 01/13/25 13:00) Eye Swelling vilanterol (From Trelegy Ellipta) Allergy (Intermediate, Verified 01/13/25 13:00) Eye Swelling Pravastatin Allergy (Severe, Uncoded 02/01/24 12:59) Anemia HPI Comments Details: The patient is a 74-year-old gentleman known COPD, obstructive sleep apnea on CPAP in addition to antiphospholipid syndrome on chronic anticoagulation. Overall the patient has been doing very well he is responding well to the Anoro medication. Unfortunately, he does have a history of glaucoma but he did have laser surgery in his pressures have been stable. He seems to be tolerating the Anoro without any side effects or changes in his vision. At this point he is using the medication every other day and he understands that if he develops any visual changes he needs to stop the medication. He also should get I examinations every 6 months. If however he is concerned he can always stop the medication. At this point he rather standing medications is working for him. The CPAP therapy has been affecting beneficial. He does uses CPAP every night for more than 4 hours a night. He does get supplies directly from [employer]. He denies any issues with the mask or any supply issues. The patient is without any other complaints. 03/20/2020 the patient is here for sick visit. Apparently he has been having worsening shortness of breath. He is also said other constitutional symptoms including dizziness and headaches. He has had elevated blood pressures. He did go to [facility] with elevated blood pressure and his ongoing symptoms of shortness of breath. He also was evaluated by his primary care doctor. However, he continues to have significant shortness of breath and he became very concerned. Therefore he made an appointment with Pulmonary. 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 He states that his Coumadin levels have been okay. He has also continue on his Anoro inhaler on a daily basis. Has not gotten any benefit from using his short-acting beta agonist. In the office we did have him go for 6 minutes walk test and the patient quickly desaturated below 87%. Patient was initially placed on 2 L and then had to be be increased to 3 L with improvement of his oxygenation. At this point the patient has acute onset respiratory failure of unclear etiology. He was tested for COVID-19 while at [facility]. Would be unreasonable to check his antibodies. In regards of his CPAP therapy the therapy continues to be affecting beneficial. He continues uses for more than 4 hours a night. 05/20/2021 the patient is here for a pulmonary follow-up visit. He is here with his . She is stating that he is still snoring significantly on the CPAP. He is wearing a nasal mask. She did getting him a chin strap that was not helpful. I explained to them that he needs to go back to full face mask to get the best effect. I did have an F 30 medium available and he did try it and seemed to be comfortable for him therefore he will continue using it. We will continue the current CPAP pressures. In the meantime the patient continues on Coumadin for his antiphospholipid syndrome. He has been having significant sinus congestion and postnasal drip as well as a sore throat. It is likely a component of sinusitis. I will treat him with some antibiotics to try to help his overall upper respiratory obstruction. It is likely that this obstruction is resulting worsening shortness of breath. He continues to use the oxygen. He is upset with the [employer] company because they have been delivering consistently. I will request to see if they can provide him with a filling station since he is using the small B-cylinders with a conserving device valve. 12/28/2021 the patient is here for pulmonary follow-up visit. Overall he continues to do well. He has been using his CPAP. The CPAP therapy has been affecting beneficial. He is using it every night. The current mask setting and set up is working a lot better for him. He is not using any oxygen while on the CPAP. Although, complains of nasal congestion, moderate in severity with post nasal drip. The nasal spray and allergy medicine are partially helpful. He does continue on the Coumadin. He is doing well with that. He does have a history of antiphospholipid syndrome needs to be on the Coumadin lifelong. In addition to that he is using his oxygen with activity. We did look at his pulmonary function studies in his diffusing capacity is up to 45% predicted suggesting that the patient does not need to use the oxygen when he is resting. Therefore he can always said off and then use it with activity. He is getting his oxygen now through [facility]. otherwise his pulmonary function studies demonstrate moderate COPD and mild restriction. He is walking regularly and is already lost weight at this point he is going to continue with current respiratory therapy. We have no plans of any changes at this time. Will have him follow-up in a year's time or sooner if any issues arise. 01/06/2023 the patient is here for a pulmonary follow-up visit. The patient has been nervous about a growing nodule that he has in his left lower lobe. The nodule was described as spiculated been increasing in size compared to the previous 1. Therefore he is concerned. However, the patient is already on oxygen supplementation in addition to that he has a history of thromboembolic disease with antiphospholipid syndrome. The patient has been on anticoagulation for a significant part of his life. Therefore, it is difficult to know how much she will tolerate as far as surgical resection. The patient did a have pulmonary function studies done at [facility] and I will request those results. The patient is concerned about the findings. He is also concern for any aggressive interventions. He is talking closely throughout thoracic surgeon. My recommendation is to consider a PET scan based on the fact that the nodules measuring 8 mm in size and based on his comorbidities and make give was helpful information to move forward. I have a discussion with the thoracic surgeon to see if he is agreeable to that otherwise will discuss further alternative options. 02/09/2023 the patient is here for a pulmonary follow-up visit. The patient overall has been feeling much better. Breathing overall is better. He did complete a course of antibiotics. He continues on his blood thinners. The patient has been using his oxygen with good effect. He has also been using the CPAP at nighttime. The CPAP therapy continues to be affecting beneficial. He does use it for more than 4 hours a night. The patient did undergo a PET scan to follow-up with the 8 mm spiculated nodular density. Although it appears that has not increased in size since his last CT scan in 6 months. Also be FDG activity is down to 1.5. We know this is a small subcentimeter pulmonary nodule sub PET scan does have his limitations although is reassuring to find the nodule to be low in metabolic activity. The patient will be following up with thoracic surgery. Likely will continue surveillance of this nodule. The patient is high risk for any surgical interventions. 09/27/2023 the patient is here for a pulmonary follow-up visit. The patient overall has been doing well from a respiratory status. He continues use the oxygen with good effect. The patient does have oxygen that he uses continuously throughout the day and also at nighttime. At nighttime he also uses CPAP. CPAP therapy has been affecting beneficial. He does uses CPAP more than 4 hours a night. I will make sure to send a script in order for him to continue getting supplies readily. Patient also continues on the Coumadin for his antiphospholipid syndrome. Has a high risk for developing blood clots. His followed closely by Hematology. He has underlying emphysema. Extensive and amount. Resulting the diffusion impairment in the oxygen needs. The patient also has pulmonary nodules bilaterally. The largest nodule measuring 8 mm in size in the left lower lobe close to the fissure. No clear airway going to this distribution. The nodule did not have any significant PET activity and has not significantly changed in size which is reassuring. In view of the patient is comorbidities I do not encouraged any invasive or semi-invasive diagnostic interventions. Patient should have repeat CT scan in 6-12 months. He will be following up with Interventional Pulmonary and they can discuss further their recommendations. in the meantime the patient will continue with current res piratory therapy and will continue with CPAP at nighttime in the oxygen as prescribed. 02/01/2024 the patient is here for a pulmonary follow-up visit. Overall he is doing okay. He is recovering from COVID-19. Seems to be doing better. The patient did undergo a sleep study. I did personally review it although was a limited study because he could not sleep well. Seems that he does need glenroy tional CPAP support so therefore we will request a replacement machine with the higher pressure at this time 12-18 cm of water. The patient does not need any oxygen with it. He does use oxygen during the daytime that is good. In the meantime will following closely the left-sided pulmonary nodule measuring about 8 mm in size. The last CT scan from 09/30/2023 that [facility] demonstrating no significant changes. Therefore, we should repeat it in 6 months. He does not want any aggressive interventions at this time. Therefore will hold off on any interventional pulmonary procedures and which is continue to follow the nodule in 04/01/2024. The patient also will need to get a replacement CPAP. Will send a prescription over to his DME company that is been very helpful for him. The CPAP therapy has been very affecting beneficial for him. Therefore he needs to continue it will needs a replacement because machine now is noting that the motor is not working appropriately. Patient will follow-up in the end of March to follow up with his CT scan and to see how he is responding to the new CPAP. he is also having symptoms sinusitis. Will go ahead and treat that as well. Sinus pressure cough chest congestion. Lungs sound clear. 04/09/2024 the patient is here for a pulmonary follow-up visit. Overall he is doing okay. He did have a recent CT scan of the chest which I did talk to him over the phone initially. Appeared that he had 2 nodules that were spiculated and growing. Now measuring 12 mm in size. I did refer him to thoracic surgery who then referred him to interventional pulmonary. He is scheduled to undergo a PET scan and then also robotic bronchoscopy at [facility]. The patient has also been using his CPAP. CPAP therapy has been very affecting beneficial. He tries to use it every night for more than 4 hours. Although, his current CPAP is about 14 years old and now is resulting in motor malfunctioning and it needs to be replaced. Will request an new replacement APAP local DME company, [employer]. He is also using his oxygen good effect. He did get his POC been working affecting beneficial. Will follow-up in 3-4 months in follow-up after his surgery. If he has any issues prior to that he will call for an earlier assessment. 08/09/2024 the patient is here for a pulmonary follow-up visit. Overall he is doing well. He was diagnosed with stage I adenocarcinoma with navigational bronchoscopy. Ultimately he is a poor candidate for surgery because of his comorbidities and his respiratory failure. Therefore stereotactic radiation would be a very good option for him. I believe he is going to undergo an MRI and also a PET scan just for staging again to make sure that this is only a limited to that area. I suspect that he will do well with the stereotactic radiation. In the meantime he continues with the anticoagulation for his thromboembolic disease. In addition he continues on the CPAP. He is pulling a felt special filter on the CPAP now to try to help him with staying healthy and avoid infections. But, using the filter causes the pressure to be less. Therefore I did increase the pressure from 18-16 to 12-16. He will try the higher pressure if he has some difficulties he will call me. He did tried in the office any did tolerated. Also did provide him an N30 I medium mask that he can try because he is getting the wrong size from the DME. I will request an large mask for him to try as well I will send that to his DME company, [employer]. Otherwise the patient is doing well will follow-up in 4-6 months. He has any issues prior to that he will call for an earlier assessment. 01/13/2025 the patient is here for pulmonary follow-up visit. Overall the patient has been doing well. He is status post SBRT to the small nodular d ensity in his lung. He tolerated the SBRT well. Recently had a PET scan. I did get the report. He still has some FDG activity of the area and explained to him that is related to the actual radiation therapy. In addition to that does have some FDG activity around the lung itself suggesting some degree of pulmonary pneumonitis. But clinically the patient is doing well denies any shortness of breath. He currently takes 10 mg of prednisone I believe that is sufficient I do not think he needs any additional therapies at this time. It also demonstrated significant FDG activity at the GE junction likely secondary to esophagitis and gastritis. In addition to that there is a small new lymph node.. Not clear I do not have the images right now but he will see his radiation oncologist tomorrow to see if this is of any concern regarding his small stage I lung cancer. He continues his oxygen therapy as prescribed. We did take him off the oxygen the patient did not need oxygen at rest at 2 L and then 3 L with activity. He does get his oxygen from [facility] and will go ahead and send a new prescription in order for his oxygen to be up-to-date. He continues use the PAP therapy at nighttime PAP therapy has been affecting beneficial. He has developed some sinusitis which the feels it is related to his lack of supplies. Right now he is getting supplies more readily from his [employer] company. His sinusitis is better and overall his breathing is better he will continue with the current respiratory therapy. [facility] Medical History (Updated 01/13/25 @ 20:54 by Vern Hammond MD) Lung cancer Pulmonary nodule Chronic restrictive lung disease Chronic respiratory failure Anti-phospholipid antibody syndrome Hypoxia RUFUS on CPAP COPD (chronic obstructive pulmonary disease) Social History Patient Tobacco Use Status: Former Tobacco user Tobacco use type: Cigarette Years Smoked: 14 years old Review of Systems Const Denies night sweats and Denies snoring ENT Denies change in voice, Denies lip swelling, Denies mouth pain, Reports nasal congestion, Reports nasal discharge, Reports sinus pain, Reports sinus pressure, Denies sore throat and Denies tongue swelling Card Denies chest pain and Reports dyspnea on exertion Resp Reports chest congestion, Reports cough, Reports dyspnea on exertion and Denies snoring GI Denies abdominal pain Musc Denies no additional complaints Neuro Denies Neuro-related abnormal movements Psych Denies no additional complaints Skyler/Lymph Denies easy bleeding and Denies lymphadenopathy Aller/Immun Denies lip swelling and Denies tongue swelling Physical Exam Vital Signs: Last Vital Signs Pulse 68 01/13/25 12:57 BP 138/50 L 01/13/25 12:57 Pulse Ox 93 01/13/25 12:57 Oxygen Delivery Method Nasal Cannula 01/13/25 12:57 Oxygen Flow Rate 3 01/13/25 12:57 BMI result Body Mass Index 34.0 Const General: alert HEENT General nose exam: Nasal discharge present Mouth: moist mucous membranes Throat: Yes posterior oropharynx abnormal ( Erythema without any thrush or exudate) Neck Neck: Yes normal visual inspection, Yes full ROM and Yes no lymphadenopathy Chest Chest palpation & inspection: normal inspection of the chest Resp Auscultation: no rales, no rhonchi, no wheezes and diminished lung sounds Cardio Rate: regular rate and tachycardic Rhythm: regular rhythm Heart sounds: S1 normal heart sound present and S2 normal heart sound present GI Palpation (GI): Soft to palpation and nontender Auscultation: normal bowel sounds General: Yes no CVA tenderness Back/Spine/Pelvis Back: no CVA tenderness Skin General skin exam: rashes and/or lesions noted Office Procedures 6 Minute Walk Time:: 20:54 SPO2 % at rest: 88 Pulse at rest: 89 Distance in yards walked: 100 Serjio Score: 4 Supplemental Oxygen: desaturated 88% on RA at rest. PLaced on 2L/pulse improving pox 94%. He was ambulated and increased oxygen 3L/pulse to maintain pox 93% with activity 21984 - 6 Minute Walk Assessment & Plan Assessment & Plan (1) Chronic respiratory failure: Code(s): J96.10 - Chronic respiratory failure, unspecified whether with hypoxia or hypercapnia Category: Medical Qualifiers: Respiratory failure complication: hypoxia Qualified Code(s): J96.11 - Chronic respiratory failure with hypoxia (2) Anti-phospholipid antibody syndrome: Code(s): D68.61 - Antiphospholipid syndrome Category: Medical (3) RUFUS on CPAP: Code(s): G47.33 - Obstructive sleep apnea (adult) (pediatric); Z99.89 - Dependence on other enabling machines and devices Category: Medical (4) COPD (chronic obstructive pulmonary disease): Code(s): J44.9 - Chronic obstructive pulmonary disease, unspecified Category: Medical Qualifiers: COPD type: chronic bronchitis Chronic bronchitis type: simple Qualified Code(s): J41.0 - Simple chronic bronchitis (5) Chronic restrictive lung disease: Comment: mild Code(s): J98.4 - Other disorders of lung Category: Medical (6) Pulmonary nodule: Comment: 8 mm spiculated nodule, concerning Code(s): R91.1 - Solitary pulmonary nodule Category: Medical (7) Sinusitis: Code(s): J32.9 - Chronic sinusitis, unspecified Category: Medical Qualifiers: Chronicity: subacute Sinusitis location: unspecified location Qual ified Code(s): J01.90 - Acute sinusitis, unspecified (8) Lung cancer: Comment: Likely stage 1 AdenoCA, high risk for surgery S/P SBRT Code(s): C34.90 - Malignant neoplasm of unspecified part of unspecified bronchus or lung Category: Medical Qualifiers: Laterality: left Lung location: lower lobe of lung Qualified Code(s): C34.32 - Malignant neoplasm of lower lobe, left bronchus or lung Plan continue fluticasone nasal spray continue Claritin daily Continue APAP with fullface mask, F 30 medium->N20 large Continue Anoro daily Continue oxygen supplementation. He is using at 2 L pulse with activity.DME is [facility] now continue coumadin for antiphospholipid syndrome Abnormal PET, pt will [facility]. Continue Prednsone 10mg Follow-up in 4-6 months Coding Level of Care Code Est Pt Level 5 (67834) Complex EM visit Add On G2211 Diagnoses Chronic respiratory failure with hypoxia J96.11 Respiratory failure complication: hypoxia Anti-phospholipid antibody syndrome D68.61 RUUFS on CPAP G47.33; Z99.89 Simple chronic bronchitis J41.0 COPD type: chronic bronchitis Chronic bronchitis type: simple Chronic restrictive lung disease J98.4 Pulmonary nodule R91.1 Subacute sinusitis, unspecified location J01.90 Chronicity: subacute Sinusitis location: unspecified location Malignant neoplasm of lower lobe of left lung C34.32 Laterality: left Lung location: lower lobe of lung CPT Codes Coding ([id number]) Time Spent (min) 45
--- OUTSIDE RECORDS SUMMARY | 2025-01-13 16:06 | XMS_ITS | Clinical Summary ---
Author Organization [facility] Address [address] [place] [address] Care Team Providers Care Supervisor Rice Milling Name Role Phone Randa Yip MD Primary Care Provider [phone] Allergies Active Allergy Reactions Criticality Noted Date [...] 108 11/29/2023 2:56 PM EDT Temperature 36.8 C (98.2 F) 11/29/2023 2:56 PM EDT Respiratory Rate - - Oxygen Saturation 97% [...] 01/24/2020 04/27/2018, 01/23/2015, 02/10/2011 Influenza Vaccine (#1) 2024 2, 12/22/2020, 12/20/2020, Additional history exists DTap / Tdap / Td (2 - Td or Tdap) 01/23/2025 01/23/2015 Hepatitis B Vaccines Aged Out No long er eligible based on patient's age to complete this topic RSV Ped < 20 months Aged Out No longe r eligible based on patient's age to complete this topic Care Teams Supervisor Rice Milling Relationship Specialty Start Date End Date Randa Yip MD [address] [phone] PCP - General Internal Medicine 02/11/20
--- OUTSIDE RECORDS SUMMARY | 2025-01-13 16:06 | XMS_ITS | Encounter Summary ---
Author Organization [facility] Address [address] [place] [address] Care Team Providers Care Spar Finisher Name Role Phone Randa Yip MD Primary Care Provider [phone] Encounter Details Date Type Department Care Team (Latest Contact Info) Description 01/09/2025 Anticoagulation - Warfarin Visit Coumadin Clinic [facility] [address] [place] [phone] Randa Yip MD [address] [place] [phone] Deep vein thrombosis (DVT) of distal vein of right lower extremity, unspecified chronicity (CMS/HCC V24, CMS/HCC V28) (Primary Dx); MCFP (current) use of anticoagulants; Antiphospholipid antibody with hypercoagulable state (CMS/HCC V24) Social History Tobacco Use Types Packs/Day Years [...] as of this encounter Progress Notes * Colleen Maravilla LPN - 01/09/2025 3:15 PM EDT Anticoagulation Summary As of 01/09/2025 INR goal: 2.0-3.0 TTR: 60.9% (11.6 mo) INR used for dosin.0 (01/09/2025) Warfarin maintenance plan: 7.5 mg (5 mg x 1.5) every Mon; 5 mg (5 mg x 1) all other days Weekly warfarin total: 37.5 mg No change documented: Colleen Maravilla LPN Plan last modified: Colleen Maravilla LPN (11/14/2024) Next INR check: 02/04/2025 Priority: Critical Target end date: -- Indications DVT of lower extremity (deep venous thrombosis) ([facility] V24 [facility] V28) [I82.409] MCFP (current) use of anticoagulants [Z79.01] Antiphospholipid antibody with hypercoagulable state ([facility] V24) [D68.61] Anticoagulation Episode Summary INR check location: Clinic Lab Preferred lab: -- Send INR reminders to: [facility] [place] [place] Comments: -- Anticoagulation Care Providers Provider Role Specialty Phone number Randa Yip MD [facility] Internal Medicine [phone] Patient presents for follow-up of ongoing Warfarin therapy. Patient had his INR drawn via Lab Draw.Patient denies any significant issues with adherence to the medication regimen. Patient denies experiencing any symptoms of bleeding, such as unusual bruising, nosebleeds, hematuria, or melena. Patient reports feeling generally well and denies any new complaints. Plan of care: New warfarin dose: No change Warfarin education of dietary considerations, medication/supplement interactions, and the need to continue avoiding activities that increase the risk of injury or bleeding reinforced. Patient verbalized understanding of ongoing INR monitoring and dosage change. Patient is aware of the signs of potential complications and knows to contact the clinic if they occur. Anticoagulation Flowsheet updated with new plan of care. Plan discussed with provider, no additional changes at this time. Anticoagulation Clinic Protocol Dose Type Dose Range INR Dose Adjustment # Doses Omitted Recheck Date Mini Dose 1.4-2.0 Very Low <1.2 Consult Provider 0 1 week Low 1.2-1.4 If singular event - no change If 2 in a row or 2 of the last 3 - Increase weekly dose by 10% 0 1 week In Range 1.4-2.0 No adjustment 0 1-4 weeks* High 2.0-3.0 If singular event - no change If 2 in a row or 2 of the last 3 - Decrease weekly dose by 10% 0 1 week Very High >3.0 Consult Provider 2 2 days If OK after 2 days - Decrease weekly dose by 10% 0 1 week Usual Dose 2.0-3.0 Very Low <1.5 Consult Provider 0 1 week Low 1.5-2.0 If singular event - No change If 2 in a row or 2 of the last 3 - Increase weekly dose by 10% 0 1 week In Range 2.0-3.0 No Adjustment 0 1-4 weeks* High >3.0-3.5 If singular event - No change If 2 in a row or 2 of the last 3 - Decrease weekly dose by 10% 0 1 week Very High >3.5-4.0 Consult Provider 1 2 days >4.0 Consult Provider 2 2 days If OK after 2 days - Decrease weekly dose by 10% 0 1 week Mechanical Valve 2.5-3.5 Very Low <1.5 Consult Provider 0 1 week Low 1.5-2.5 If singular event - No change If 2 in a row or 2 of the last 3 - Increase weekly dose by 10% 0 1 week In Range 2.5-3.5 No Adjustment 0 1-4 weeks* High >3.5-4.0 If singular event - No change If 2 in a row or 2 of the last 3 - Decrease weekly dose by 10% 0 1 week Very High >4.0-4.9 Consult Provider 1 2 days >5.0 Consult Provider 2 2 days If OK after 2 days - Decrease weekly dose by 10% 0 1 week * In range 1 week = recheck in 1 week In range 2 weeks = recheck in 2 weeks In range 3 weeks = recheck in 3 weeks In range 4 weeks = recheck in 4 weeks Cosigned by Randa Yip MD at 01/09/2025 6:59 PM EDT documented in this encounter Plan of Treatment Upcoming Encounters Date Type Department Care Team (Late st Contact Info) Description 01/14/2025 2:30 PM EST Appointment [facility] Radiation Oncology [address] [place] [phone] Ni Mccrary, SHANIQUA [address] [place] [address] 01/22/2025 2:15 PM EST Office Visit Orthopedic Surgery - [place] 250 175 [facility] 250 [place] [phone] Reynaldo Stone DPM [address] [place] [phone] 03/26/2025 2:00 PM EST Telemedicine Internal Medicine [facility] 175 [facility] 200 [place] [phone] Randa Yip MD [address] [place] [phone] 05/28/2025 11:15 AM EDT Office Visit [facility] Hematology Oncology [address] [place] [phone] Sayda-Edmund Gordon MD [address] [place] [phone] 01/06/2026 12:45 PM EDT [facility] [address] [place] [address] Betito Fisher MD [address] [phone] documented as of this encounter Visit Diagnoses Diagnosis Deep vein thrombosis (DVT) of distal vein of right lower extremity, unspecified chronicity (CMS/HCC V24, CMS/HCC V28)- Primary MCFP (current) use of anticoagulants Long-term (current) use of anticoagulants Antiphospholipid antibody with hypercoagulable state (CMS/HCC V24) documented in this encounter Additional Health Concerns Assessment Noted Time PHQ-9 Depression Total Score: 0 03/25/19 25 3:34 PM EST documented as of this encounter Care Teams Spar Finisher Relationship Specialty Start Date End Date Randa Yip MD 175 [facility] 200 [place] [address] PCP - General Internal Medicine 02/16/24 documented as of this encounter
--- OUTSIDE RECORDS SUMMARY | 2025-01-13 16:06 | XMS_ITS ---
Author Organization [facility] ter Address [address] [place] [address] Phone Care Team Providers Care Assembly Machine Offbearer Name Role Phone Randa Yip MD Primary Care Provider [phone] Active Problems Problem Noted Date Diagnosed Date Malignant neoplasm of lower lobe of left lung ([facility] V24, [facility] V28) 09/24/2024 Primary cancer of left lower lobe of lung ([facility] V24, [facility] V28) 08/30/2024 Antiphospholipid antibody wi th hypercoagulable state ([facility] V24) 01/25/2024 ocean transportation intermediary (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) use of anticoagulants 2023 Supplemental oxygen dependent 04/21/2020 Weight loss 01/28/2020 Type II diabetes mellitus ([facility] V24, [facility] V28) 06/20/2019 Obese 12/28/2018 Insomnia 09/26/2017 Obstructive sleep apnea syndrome 01/09/2017 Assessment & Plan (03/25/2024 6:57 PM EST): PVD (peripheral vascular disease) ([facility] V24) 12/16/2016 Overview (08/27/2024): PTCA mid SFA disease 11/27 Allergic rhinitis 10/21/2016 Chronic obstructive pulmonar y disease ([facility] V24, [facility] V28) 10/21/2016 Assessment & Plan (03/25/2024 6:57 PM EST): DVT of lower extremity (deep venous thrombosis) (CMS/HCC V24, CMS/HCC V28) 10/21/2016 Multiple pulmonary nodules 10/21/2016 Assessment & Plan [...] general and how their size, shape, and pattern changer and repairer time affect her level of suspicion for [...] All questions were answered. Autoimmune hemolytic anemia (CMS/HCC V24, CMS/HC C V28) 08/04/2016 Assessment & Plan (03/25/2024 6:57 PM EST): Eczema 07/08/2016 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 Acute ischemic heart disease (CMS/HCC V24, CMS/H CC V28) 02/08/2016 Hyperlipidemia 08/13/2015 Aortic valve sclerosis 02/20/2014 Malignant neoplasm of urinar y bladder (CMS/HCC V24, CMS/HCC V28) 02/20/2014 Stage 3b chronic kidney disease (CMS/HCC V24, CM S/HCC V28) 02/19/2013 Overview (08/27/2024): Dr Fisher Steatosis of liver 02/19/2013 Asymptomatic varicose veins of lower extremity 1 04/17/2011 Glaucoma 02/15/2012 Microscopic hematuria 02/07/2012 Current Treatment and Therapy Plans No current plan information found. Other Current Plans RiTUXimab Weekly* Plan Start Date:04/29/2024 Plan Provider:Edmund Meraz MD Linked Problems Autoimmune hemolytic anemia ([facility] V24, [facility] V28) Treatment Medications riTUXimab-pvvr (RUXIENCE) IVPB 250 mL Past Treatment and Therapy Plans No past plan information found. Current Radiation Episodes * Radiation Therapy: LungOverview* First Treatment Date Latest Treatment Date Treatment Site Technique Goal Episode Provider 10/09/2024 10/14/2024 Lung Curative Rosalba Santiago MD * Linked Problems Treatment Courses* Course 1 10/09/2024 - 10/14/2024 Treatment Sites Treatment Period Fraction Dose Fractions Total Dose L lower lobe 10/09/2024 - 10/14/2024 1,200 / 1,200 cGy 3 / 4 3,600 / 4,800 cGy Lifetime Dose Tracking * Chemical Lifetime Dose Automatic Entry Manual Entr y Fluoro Time 4.05 minutes 4.05 minutes 0 minutes Dose Area Product 206.9 mGy-cm2 206.9 mGy-cm2 0 mGy-cm 2 Resolved Problems Problem Noted Date Diagnosed Date Resolved Date Ulcer of ankle ([facility] V24, [facility] V28) 06/06/2016 11/19/2024
--- OUTSIDE RECORDS SUMMARY | 2025-01-13 16:06 | XMS_ITS | Encounter Summary ---
Author Organization [facility] Address [address] [place] [address] Care Team Providers Care Test Technician Name Role Phone Randa Yip MD Primary Care Provider [phone] Encounter Details Date Type Department Care Team Description 04/10/2018 Nurse Only [facility] Oncology Services [address] [place] [address] Faizan Eugene RN Social History Tobacco Use [...] with Bernadette at coumadin clinic at [address] [facility] and confirmed that patient needed to be bridge with Lovenox prior to Biopsy scheduled with Dr. Aragon. Bernadette will manage this and call patient. Faizan Eugene RN documented in this encounter Plan of Treatment Not on file documented as of this encounter Visit Diagnoses Not on filedocumented in this encounter Care Teams Test Technician Relationship Specialty Start Date End Date Randa Yip MD [address] [place] [address] [address] [place] [phone] PCP - General Internal Medicine 02/11/20 documented as of this encounter
--- OUTSIDE RECORDS SUMMARY | 2025-01-13 16:06 | XMS_ITS | Encounter Summary ---
Author Organization [facility] Address [address] [place] [address] Care Team Providers Care Automatic Drilling Machine Operator Name Role Phone Randa Yip MD Primary Care Provider [phone] Encounter Details Date Type Department Care Team (Late Contact Info) Description 06/26/2024 Lab Requisition [facility] - Main Lab [address] [facility] [place] [address] Azam Pelayo MD [address] [facility] 120 [place] [phone] Malignant neoplasm of lateral wall of bladder (CMS/HCC V24, CMS/HCC V28) Social History Tobacco [...] not to disclose 2024 9:13 AM EST documented as of this encounter Plan of Treatment Upcoming Encounters Date Type Department Care Team (Late Contact Info) Description 01/14/2025 2:30 PM EST Appointment [facility] Radiation Oncology [address] [place] [address] Ni Mccrary NP [address] [place] [address] 01/22/2025 2:15 PM EST Office Visit Orthopedic Surgery - [place] 250 175 [facility] 250 [place] [phone] Reynaldo Stone DPM [address] [place] [phone] 03/26/2025 2:00 PM EST Telemedicine Internal Medicine - [place] 175 [facility] 200 [place] [address] Randa Yip MD [address] [place] [phone] 05/28/2025 11:15 AM EDT Office Visit [facility] Hematology Oncology [address] [place] [phone] Sayda-Edmund Gordon MD [address] [place] [phone] 01/06/2026 12:45 PM EDT [facility] [address] [place] [phone] Betito Fisher MD 3550 [facility] 204 [place] [phone] documented as of this encounter Procedures Procedure Name Priority Date/Time Associated Diagnosis Comments AP OUTSIDE CONSULT Routine 06/24/2024 12 :00 AM EDT Malignant neoplasm of lateral wall of bladder (CMS/HCC V24, CMS/HCC V28) documented in this encounter Results * Anatomic pathology outside consult (06/24/2024 12:00 AM EDT) Final Diagnosis A. Urine, Voided, ([id number]): Negative for high grade urothelial carcinoma. 06/27/2024 9:19 AM EDT [facility] Clinical Information Malignant neoplasm of lateral wall of bladder C67.2 Received is one ThinPrep slide for cytology. 06/27/2024 9:19 AM EDT [facility] Gross Description A. Urine, Voided, ([id number]): Received is one ThinPrep slide for cytology. 06/27/2024 9:19 AM EDT [facility] Disclaimer Unless otherwise specified, all tissue is 10% NB formalin fixed and paraffin embedded. Technical pathology services provided by [facility] at [address] [facility] [address], [place] [address] (CLIA #[id number]/S erma Morocho MD, Parts Counterman) 06/27/2024 9:19 AM EDT [facility] Tissue Urine specimen from urethra / Unknown 06/24/2024 06/26/2024 1:37 PM EDT us Azam Pelayo MD LAB PATHOLOGY ORDERABLES Final Result [facility] [address] [place] [address], documented in this encounter Visit Diagnoses Diagnosis Malignant neoplasm of lateral wall of bladder (CMS/HCC V24, CMS/HCC V28) Malignant neoplasm of lateral wall of urinary bladder documented in this encounter Additional Health Concerns Infection Onset Date Last Indicated Resolved Time Tuberculosis Rule-Out 07/31/2024 07/31/20242024 7:06 PM EDT Assessment Noted Time PHQ-9 Depression Total Score: 0 03/25/19 25 3:34 PM EST documented as of this encounter Care Teams Automatic Drilling Machine Operator Relationship Specialty Start Date End Date Randa Yip MD [address] [place] [phone] PCP - General Internal Medicine 02/16/24 documented as of this encounter
--- OUTSIDE RECORDS SUMMARY | 2025-01-13 16:06 | XMS_ITS | Encounter Summary ---
Author Organization [facility] Address [address] [facility] 200 [place] [address] Phone Care Team Providers Care Protection Engineer Name Role Phone Unavailable Primary Care Provider Unavailabl e Reason for Visit * Reason Comments Med Refill Encounter Details Date Type Department Care Team (Late st Contact Info) Description 05/28/2024 Refill [facility] 200 [place] [phone] Betito Fisher MD [address] [facility] 204 [place] [address] Social History Tobacco Use Types Packs/Day Years Used Date Smoking Tobacco: Never Assessed Sex and Gender Information Value Date Recorded Sex Assigned at Not on file Legal Sex Male 4:51 PM EST Gender Identity Not on file Sexual Orientation Not on file documented as of this encounter Plan of Treatment Not on file documented as of this encounter Visit Diagnoses Not on filedocumented in this encounter
--- OUTSIDE RECORDS SUMMARY | 2025-01-13 16:06 | XMS_ITS | Clinical Summary ---
Author Organization [facility] [place] [address] Phone Care Team Providers [employer] Name Role Phone Randa Yip MD Primary Care Provider [phone] Allergies Active Allergy Reactions Criticality Noted Date Comments Adhesive Tape-Silicones Rash 04/26/2024 Clopidogrel Other 01/18/2021 Hydralazine 01/24/2020 Latex Hives 11/28/2022 Pravastatin 08/04/2016 Jaundice Medications lisinopriL (PRINIVIL,ZESTR IL) 20 mg tablet Take 1 tablet (20 mg total) by mouth daily. 02/19/20 19 Active umeclidinium-vi lanteroL (ANORO ELLIPTA) 62.5-25 mcg/actuation inhaler 1 puff by Inhaled route daily. 06/10/19 18 Active enoxaparin (Lovenox) 120 mg/0.8 mL syringe injection Inject 0.8 mL (120 mg total) under the skin every 12 (twelve) hours. 10 each 1 04/09/19 25 Active carvediloL (COREG) 6.25 mg tablet Take 1 tablet (6.25 mg total) by mouth 2 (two) times a day with meals. Active warfarin (COUMADIN) 5 mg tablet Take 1 tablet (5 mg total) by mouth 1 (one) time each day. 135 tablet 1 06/27/19 25 Active fluticasone (VERAMYST) 27.5 mcg/actuation nasal spray Administer 2 sprays into each nostril 1 (one) time each day. As needed Active furosemide (LASIX) 20 mg tablet TAKE 1 TABLET BY MOUTH EVERY DAY 90 tablet 1 09/03/19 25 Active gabapentin (NEURONTIN) 100 mg capsule TAKE 1 CAPSULE BY MOUTH THREE TIMES A DAY 90 capsule 5 09/03/19 25 Active folic acid (FOLVITE) 1 mg tablet TAKE 1 TABLET BY MOUTH EVERY DAY 90 tablet 3 09/07/19 25 Active ezetimibe (ZETIA) 10 mg tablet TAKE 1 TABLET BY MOUTH EVERY DAY 90 tablet 11/14/19 25 Active alcohol swabs pads, medicated USE ONCE DAILY DIRECTED 100 each 11/14/19 25 Active blood sugar diagnostic (FreeStyle Lite Strips) test strip USE 1 STRIP TO TEST BLOOD 3 TIMES A DAY 100 strip 11/14/19 25 Active lisinopril (PRINIVIL,ZESTR IL) 40 mg tablet TAKE 1 TABLET BY MOUTH EVERY DAY 90 tablet 3 11/14/19 25 Active melatonin 5 mg tablet TAKE 2 TABLETS BY MOUTH EVERY DAY 180 tablet 1 11/14/19 25 Active clobetasoL (TEMOVATE) 0.05 % ointment APPLY SMALL AMOUNT TO AFFECTED AREA 2 TIMES A DAY 60 g 3 11/14/19 25 Active omeprazole (PriLOSEC) [address] capsule TAKE 1 CAPSULE BY MOUTH EVERY DAY 90 capsule 1 11/19/19 25 Active magnesium oxide (MAG-OX) 400 mg (241.3 elemental magnesium) tablet TAKE 1 TABLET BY MOUTH EVERY DAY 90 tablet 1 11/19/19 25 Active atenoloL (TENORMIN) 25 mg tablet TAKE 1 TABLET BY MOUTH EVERY DAY 90 tablet 1 11/19/19 25 Active amLODIPine (NORVASC) 10 mg tablet TAKE 1 TABLET BY MOUTH EVERY DAY 90 tablet 1 11/19/19 25 Active cholecalciferol (Vitamin D3) 50 mcg (2,000 unit) tablet Take 1 tablet (2,000 Units total) by mouth 1 (one) time each day. 90 tablet 2 11/20/19 25 Active predniSONE (DELTASONE) 10 mg tablet Take 1 tablet (10 mg total) by mouth 1 (one) time each day. 90 tablet 1 12/12/19 25 Active dulaglutide (Trulicity) 1.5 mg/0.5 mL pen injector injectionIndica tions:Class 2 severe obesity due to excess calories with serious comorbidity in adult, unspecified BMI INJECT 0.5 ML (1.5 MG TOTAL) UNDER THE SKIN EVERY 7 DAYS 2 mL 3 01/11/20 25 Active dulaglutide (Trulicity) 1.5 mg/0.5 mL pen injector injectionIndica tions:Class 2 severe obesity due to excess calories with serious comorbidity in adult, unspecified BMI INJECT 0.5 ML (1.5 MG TOTAL) UNDER THE SKIN EVERY 7 DAYS 2 mL 3 09/07/19 25 025 Discontinued Active Problems Problem Noted Date Diagnosed Date Malignant neoplasm of lower lobe of left lung ([facility] V24, [facility] V28) 09/24/2024 Primary cancer of left lower lobe of lung ([facility] V24, [facility] V28) 08/30/2024 Antiphospholipid antibody wi th hypercoagulable state ([facility] V24) 01/25/2024 [facility] (current) use of anticoagulants 2023 Supplemental oxygen dependent 04/21/2020 Weight loss 01/28/2020 Type II diabetes mellitus ([facility] V24, [facility] V28) 06/20/2019 Obese 12/28/2018 Insomnia 09/26/2017 Obstructive sleep apnea syndrome 01/09/2017 Assessment & Plan (03/25/2024 6:57 PM EST): PVD (peripheral vascular disease) ([facility] V24) 12/16/2016 Overview (08/27/2024): PTCA mid SFA disease 11/27 Allergic rhinitis 10/21/2016 Chronic obstructive pulmonar y disease ([facility] V24, [facility] V28) 10/21/2016 Assessment & Plan (03/25/2024 6:57 PM EST): DVT of lower extremity (deep venous thrombosis) ([facility] V24, [facility] V28) 10/21/2016 Multiple pulmonary nodules 10/21/2016 Assessment [...] general and how their size, shape, and post exchange manager time affect her level of suspicion for [...] All questions were answered. Autoimmune hemolytic anemia ([facility]/HCC V24, [facility]/HC C V28) 08/04/2016 Assessment & Plan (03/25/2024 6:57 PM EST): Eczema 07/08/2016 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 Acute ischemic heart disease (CMS/HCC V24, [facility]/H CC V28) 02/08/2016 Hyperlipidemia 08/13/2015 Aortic valve sclerosis 02/20/2014 Malignant neoplasm of urinar y bladder (CMS/HCC V24, CMS/HCC V28) 02/20/2014 Stage 3b chronic kidney disease (CMS/HCC V24, CM S/HCC V28) 02/19/2013 Overview (08/27/2024): Dr Fisher Steatosis of liver 02/19/2013 Asymptomatic varicose veins of lower extremity 1 04/17/2011 Glaucoma 02/15/2012 Microscopic hematuria 02/07/2012 Resolved Problems Problem Noted Date Diagnosed Date Resolved Date Ulcer of ankle (CMS/HCC V24, CMS/HCC V28) 06/06/2016 11/19/2024 Encounters Date Type Department Care Team Description 01/10/2025 Results Follow-Up Internal Medicine - [place] [address] [place] [phone] Randa Yip MD 01/09/2025 1:55 PM EDT Hospital Encounter [facility] PET Scan [address] [place] [phone] Malignant neoplasm of lower lobe of left lung ([facility] V24, [facility] V28) 01/09/2025 1:15 PM EDT Lab Draw Station - [facility] [address] [phone] Autoimmune hemolytic anemia ([facility] V24, [facility] V28); Asymptomatic varicose veins of lower extremity, unspecified laterality; Deep vein thrombosis (DVT) of distal vein of right lower extremity, unspecified chronicity ([facility] V24, [facility] V28); PVD (peripheral vascular disease) ([facility] V24); [facility] (current) use of anticoagulants; Antiphospholipid antibody with hypercoagulable state ([facility] V24); Stage 3 chronic kidney disease, unspecified whether stage 3a or 3b CKD ([facility] V24, [facility] V28) 01/09/2025 Anticoagulation - Warfarin Visit Coumadin Clinic [facility] [address] [place] [phone] Randa Yip MD Deep vein thrombosis (DVT) of distal vein of right lower extremity, unspecified chronicity ([facility] V24, [facility] V28) (Primary Dx); intermission coordinator (current) use of anticoagulants; Antiphospholipid antibody with hypercoagulable state ([facility] V24) 01/07/2025 12:30 PM EDT Office Visit Nephrology - [place] [address] [place] [address] Betito Fisher MD Stage 3 chronic kidney disease, unspecified whether stage 3a or 3b CKD ([facility] V24, [facility] V28) (Primary Dx); Essential hypertension; Antiphospholipid antibody with hypercoagulable state ([facility] V24) 12/11/2024 11:30 AM EDT Office Visit [facility] Hematology Oncology [address] [place] [phone] Edmund Meraz MD Autoimmune hemolytic anemia ([facility] V24, [facility] V28) (Primary Dx); Primary cancer of left lower lobe of lung ([facility] V24, [facility] V28); Obstructive sleep apnea syndrome; Multiple pulmonary nodules 12/11/2024 Anticoagulation - Warfarin Visit Coumadin [address] [phone] Bernadette Conner LPN Deep vein thrombosis (DVT) of distal vein of right lower extremity, unspecified chronicity ([facility] V24, [facility] V28) (Primary Dx); intermission coordinator (current) use of anticoagulants; Antiphospholipid antibody with hypercoagulable state ([facility] V24) 11/28/2024 Anticoagulation - Warfarin Visit Coumadin [address] [phone] Bernadette Conner LPN Deep vein thrombosis (DVT) of distal vein of right lower extremity, unspecified chronicity ([facility] V24, [facility] V28) (Primary Dx); [facility] (current) use of anticoagulants; Antiphospholipid antibody with hypercoagulable state ([facility] V24) 11/19/2024 1:00 PM EDT Office Visit Internal Medicine [facility] [address] [facility] [address] [place] [phone] Randa Yip MD Type 2 diabetes mellitus with other circulatory complication, with long-term current use of insulin ([facility] V24, [facility] V28) (Primary Dx); Other fatigue; Stage 3b chronic kidney disease ([facility] V24, [facility] V28); Primary cancer of left lower lobe of lung ([facility] V24, [facility] V28) 11/14/2024 12:01 PM EDT - 11/14/2024 11:59 PM EDT Hospital Encounter [facility] Radiation Oncology [address] [place] [phone] Rosalba Santiago MD Malignant neoplasm of lower lobe of left lung ([facility] V24, [facility] V28) (Primary Dx) Discharge Disposition: Home or Self Care 11/14/2024 Anticoagulation - Warfarin Visit Coumadin [facility] [address] [place] [phone] Colleen Maravilla LPN Deep vein thrombosis (DVT) of distal vein of right lower extremity, unspecified chronicity ([facility] V24, [facility] V28) (Primary Dx); [facility] (current) use of anticoagulants; Antiphospholipid antibody with hypercoagulable state ([facility] V24) 10/31/2024 Anticoagulation - Warfarin Visit Coumadin [facility] [address] [place] [phone] Bernadette Conner LPN Deep vein thrombosis (DVT) of distal vein of right lower extremity, unspecified chronicity ([facility] V24, [facility] V28) (Primary Dx); intermission coordinator (current) use of anticoagulants; Antiphospholipid antibody with hypercoagulable state ([facility] V24) 10/22/2024 2:15 PM EDT Office Visit Orthopedic Surgery [facility] [address] [phone] Reynaldo Stone DPM Metatarsalgia of both feet (Primary Dx); Type 2 diabetes mellitus without complication, without long-term current use of insulin ([facility] V24, [facility] V28); Dermatophytosis of nail; Pain in toe of right foot; Pain in toe of left foot; Diabetic mononeuropathy simplex ([facility] V24, [facility] V28); Type II diabetes mellitus with peripheral circulatory disorder ([facility] V24, [facility] V28) 10/16/2024 11:10 AM EDT - 10/16/2024 11:59 PM EDT Hospital Encounter [facility] Radiation Oncology [address] [place] [phone] Rosalba Santiago MD Malignant neoplasm of lower lobe of left lung ([facility] V24, [facility] V28) (Primary Dx) Discharge Disposition: Home or Self Care 10/16/2024 10:38 AM EDT - 10/16/2024 11:59 PM EDT Hospital Encounter [facility] Radiation Oncology [address] [place] [phone] Rosalba Santiago MD Discharge Disposition: Home or Self Care 10/16/2024 Anticoagulation - Warfarin Visit [facility]madin Clinic - [facility] [address] [place] [phone] Bernadette Conner LPN Deep vein thrombosis (DVT) of distal vein of right lower extremity, unspecified chronicity ([facility] V24, [facility] V28) (Primary Dx); [facility] (current) use of anticoagulants; Antiphospholipid antibody with hypercoagulable state ([facility] V24) 10/14/2024 10:32 AM EDT - 10/14/2024 11:59 PM EDT Hospital Encounter [facility] Radiation Oncology [address] [place] [phone] Festus Coleman MD Discharge Disposition: Home or Self Care from Last 3 Months Surgical History Surgery Date Site/Laterality Comments OTHER SURGICAL HISTORY PROCEDURE:SPLENECTOMY OTHER SURGICAL HISTORY PROCEDURE: HISTORY OTHER; COMMENT: vein stripping to bilateral LE CATARACT EXTRACTION Bilateral COLONOSCOPY Medical History Medical History Date Comments Anemia DX:Anemia Heart murmur DX:Heart murmur FH: emphysema DX:FH: emphysema CKD (chronic kidney disease) stage 3, GFR 30-59 ml/min ([facility] V24, [facility] V28) 02/19/2013 DX:CKD (chronic kidney disea se) stage 3, GFR 30-59 ml/min ([facility]) Hyperlipidemia 05/04/2017 DX:Hyperlipidemi a Acute ischemic heart disease ([facility] V24, [facility] V28) 02/08/2016 DX:Acute ischemic heart dise ase ([facility]) Allergic rhinitis 10/21/2016 DX:Allergic rh initis Antiphospholipid syndrome ([facility] V24) DX:Antiphospholipid syndrome (HCC) Aortic valve sclerosis 02/20/2014 DX:Aortic valve sclerosis Asymptomatic varicose veins of lower extremity 02/15/2012 DX:Asymptomatic varicose vei ns of lower extremity Autoimmune hemolytic anemia ([facility] V24, [facility] V28) 08/04/2016 DX:Autoimmune hemolytic anem ia ([facility]) Chronic obstructive pulmonar y disease (CMS/HCC V24, [facility] V28) 10/21/2016 DX:Chronic obstructive pulm onary disease (HCC) Deep vein thrombosis (DVT) o f lower extremity (CMS/HCC V24, [facility] V28) 10/21/2016 DX:Deep vein thro mbosis (DVT) of lower extremity (HCC) Eczema 07/08/2016 DX:Eczema Glaucoma 02/15/2012 DX:Glaucoma Hypertension 12/16/2016 DX:Hypertension Insomnia 09/26/2017 DX:Insomnia 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 DX:Lichen planus Malignant neoplasm of urinar y bladder (CMS/HCC V24, [facility] V28) 02/20/2014 DX:Malignant neoplasm of ur inary bladder (HCC) Microscopic hematuria 02/07/2012 DX:Microsc opic hematuria Multiple pulmonary nodules 10/21/2016 DX:Mu ltiple pulmonary nodules Obstructive sleep apnea syndrome 01/09/2017 DX:Obstructive sleep apnea syndrome; CPAP QHS Steatosis of liver 02/19/2013 DX:Steatosis of liver Ulcer of ankle ([facility] V24, [facility] V28) 06/06/2016 DX:Ulcer of ankle (HCC) HL (hearing loss) Prediabetes History of transfusion Arthritis Oxygen dependent 2l/min Family History Medical History Relation Name Comments Cardiomyopathy Brother Lung cancer Father Cardiomyopathy Mother Cardiomyopathy Sister Relation Name Status Comments Brother Father Mother Sister Social History Tobacco Use Types Packs/Day Years Used Date Smoking Tobacco: Former Cigarettes Smokeless Tobacco: Never Tobacco Cessation:Counseling Given: Not [...] Sign Reading Time Taken Comments Blood Pressure 126/63 01/07/2025 12:30 PM EDT Pulse 69 01/07/2025 12:30 PM EDT Temperature 36.7 C (98 F) 12/11/2024 11:09 AM EDT Respiratory Rate 18 11/19/2024 1:05 PM EDT Oxygen Saturation 94% 12/11/2024 11:09 AM EDT Inhaled Oxygen Concentration - - Weight 110 kg (243 lb) 01/09/2025 4:01 PM EDT Height 180.3 cm (5' 11 ) 01/09/2025 4:01 PM EDT Body Mass Index 33.89 01/09/2025 4:01 PM EDT Plan of Treatment Upcoming Encounters Date Type Department Care Team (Late st Contact Info) Description 01/14/2025 2:30 PM EST Appointment [facility] Radiation Oncology [address] [place] [phone] Ni Mccrary NP [address] [place] [address] 01/22/2025 2:15 PM EST Office Visit Orthopedic Surgery [facility] [address] [facility] [address] [place] [phone] Reynaldo Stone DPM [address] [place] [phone] 03/26/2025 2:00 PM EST Telemedicine Internal Medicine [facility] [address] [facility] [address] [place] [phone] Randa Yip MD [address] [place] [phone] 05/28/2025 11:15 AM EDT Office Visit [facility] Hematology Oncology [address] [place] [phone] Edmund Meraz MD [address] [place] [phone] 01/06/2026 12:45 PM EDT Office Visit Nephrology - [facility] [address] [place] [phone] Betito Fisher MD [address] [phone] Health Maintenance Due Date Last Done Comments Diabetes: Annual Foot Exam 02/10/1960 RSV Immunization Adult Patients (1 - Risk 50-74 years 1-dose series) 02/10/2000 Zoster Vaccines (2 of 2) 04/24/2019 02/27/2019 Abdominal Aortic Aneurysm (AAA) Screen 02/17/2022 Hepatitis C Screening 02/17/2022 Social Influencers of Health Screening 02/17/2022 COVID-19 Vaccine ( season) 2024 12/14/2022, 01/12/2022, 01/14/2021, Additional history exists Diabetes: Annual Retina Eye Exam 02/11/2025 02/12/2024 Medicare Annual Wellness Visit 03/25/2025 03/25/2024 Diabetes: Blood Sugar Control Test (HGBA1C) 05/28/2025 11/28/2024, 07/29/2024, 04/09/2024, Additional history exists Falls Risk Assessment 07/31/2025 07/31/2024 Diabetes: Annual Urine Albumin-Creatinine Ratio (uACR) 01/09/2026 01/09/2025 Diabetes: Annual GFR (Glomerular Filtration Rate) 01/09/2026 01/09/2025, 01/09/2025, 01/09/2025, Additional history exists Hypertension/CHF/CAD Annual BMP Blood Test 01/09/2026 01/09/2025, 01/09/2025, 01/09/2025, Additional history exists Colorectal Cancer Screening: FIT-DNA (Cologuard) 02/14/2026 02/14/2023 Cholesterol Screening (Lipid Panel) 07/29/2029 07/29/2024, 11/28/2023 DTaP,Tdap,and Td Vaccines (4 - Td or Tdap) 01/29/2034 01/30/2024, 01/23/2015, 02/10/2006 Pneumococcal Vaccine: 50+ Years Completed 09/19/2022, 04/27/2018, 01/23/2015, Additional history exists Depression Screening Completed 03/25/2024 Influenza Vaccine Completed 12/09/2024, , 12/14/2022, Additional history exists HIB Vaccines Aged Out No longer eligi ble based on patient's age to complete this topic HPV Vaccines Aged Out No longer eligi ble based on patient's age to complete this topic Hepatitis A Vaccines Aged Out No long er eligible based on patient's age to complete this topic Hepatitis B Vaccines Aged Out No long [...] patient's age to complete this topic Meningococcal B Vaccine Aged Out No l onger eligible based on patient's age to complete this topic RSV Immunization Patients Under 20 months Aged Out No longer eligible based on patient's age to complete this topic Varicella Vaccines Aged Out No longer eligible based on patient's age to complete this topic Medical Devices Implanted Type Area Salvage Diver Device Identifier Shelf Expiration Date Model / Serial / Lot Marker Cobra Superlock - Sn/A - [id number] Implanted:Qt y: 1 on 07/31/2024 by Gay Rodriguez MD at [facility] Implants Left: Lung [employer] [id number] 02/28/2028 [id number] / N/A / [id number] Description:Left lower lobe Procedures Procedure Name Priority Date/Time Associated Diagnosis Comments PET CT SKULL TO MID THIGH SUBSEQUENT Routine 01/09/2025 4:35 PM EDT Malignant neoplasm of lower lobe of left lung (CMS/HCC V24, CMS/HCC V28) MICROALBUMIN CREATININE URINE RATIO Routine 01/09/2025 2:28 PM EDT Stage 3 chronic kidney disease, unspecified whether stage 3a or 3b CKD (CMS/HCC V24, CMS/HCC V28) VITAMIN D 25 HYDROXY Routine 01/09/2025 1:17 PM EDT Stage 3 chronic kidney disease, unspecified whether stage 3a or 3b CKD (CMS/HCC V24, CMS/HCC V28) PARATHYROID HORMONE INTACT Routine 01/09/2025 1:17 PM EDT Stage 3 chronic kidney disease, unspecified whether stage 3a or 3b CKD (CMS/HCC V24, CMS/HCC V28) BASIC METABOLIC PANEL Routine 01/09/2025 1:17 PM EDT Stage 3 chronic kidney disease, unspecified whether stage 3a or 3b CKD (CMS/HCC V24, CMS/HCC V28) CBC WITH AUTO DIFFERENTIAL Routine 01/09/2025 1:16 PM EDT Autoimmune hemolytic anemia (CMS/HCC V24, CMS/HCC V28) PROTHROMBIN TIME WITH INR Routine 01/09/2025 1:16 PM EDT Asymptomatic varicose veins of lower extremity, unspecified laterality Deep vein thrombosis (DVT) of distal vein of right lower extremity, unspecified chronicity (CMS/HCC V24, CMS/HCC V28) PVD (peripheral vascular disease) (CMS/HCC V24) intermission coordinator (current) use of anticoagulants Antiphospholipid antibody with hypercoagulable state (CMS/HCC V24) BILIRUBIN, TOTAL Routine 01/09/2025 1:16 PM EDT Autoimmune hemolytic anemia (CMS/HCC V24, CMS/HCC V28) CREATININE, SERUM Routine 01/09/2025 1:1 6 PM EDT Autoimmune hemolytic anemia (CMS/HCC V24, CMS/HCC V28) BUN Routine 01/09/2025 1:16 PM EDT Autoimmune hemolytic anemia (CMS/HCC V24, CMS/HCC V28) CBC AND DIFFERENTIAL Routine 01/09/2025 1:16 PM EDT Autoimmune hemolytic anemia (CMS/HCC V24, CMS/HCC V28) PROTHROMBIN TIME WITH INR Routine 12/11/2024 10:52 AM EDT intermission coordinator (current) use of anticoagulants Deep vein thrombosis (DVT) of distal vein of left lower extremity, unspecified chronicity (CMS/HCC V24, CMS/HCC V28) Antiphospholipid antibody with hypercoagulable state (CMS/HCC V24) EXTERNAL ULTRASOUND REPORT 12/05/2024 RBC MORPHOLOGY REVIEW Routine 11/28/2024 9:54 AM EDT Autoimmune hemolytic anemia (CMS/HCC V24, CMS/HCC V28) CBC WITH AUTO DIFFERENTIAL Routine 11/28/2024 9:54 AM EDT Autoimmune hemolytic anemia (CMS/HCC V24, CMS/HCC V28) THYROID STIMULATING HORMONE Routine 11/28/2024 9:54 AM EDT Type 2 diabetes mellitus with other circulatory complication, with long-term current use of insulin (CMS/HCC V24, CMS/HCC V28) Other fatigue HEMOGLOBIN A1C Routine 11/28/2024 9:54 AM EDT Type 2 diabetes mellitus with other circulatory complication, with long-term current use of insulin (CMS/[facility] V24, CMS/HCC V28) Other fatigue BILIRUBIN, TOTAL Routine 11/28/2024 9:54 AM EDT Autoimmune hemolytic anemia (CMS/HCC V24, CMS/HCC V28) CREATININE, SERUM Routine 11/28/2024 9:5 4 AM EDT Autoimmune hemolytic anemia (CMS/HCC V24, CMS/HCC V28) BUN Routine 11/28/2024 9:54 AM EDT Autoimmune hemolytic anemia (CMS/HCC V24, CMS/HCC V28) HAPTOGLOBIN Routine 11/28/2024 9:54 AM EDT Autoimmune hemolytic anemia (CMS/HCC V24, CMS/HCC V28) LACTATE DEHYDROGENASE Routine 11/28/2024 9:54 AM EDT Autoimmune hemolytic anemia (CMS/HCC V24, CMS/HCC V28) CBC AND DIFFERENTIAL Routine 11/28/2024 9:54 AM EDT Autoimmune hemolytic anemia (CMS/HCC V24, CMS/HCC V28) PROTHROMBIN TIME WITH INR Routine 11/28/2024 9:54 AM EDT [facility] (current) use of anticoagulants Deep vein thrombosis (DVT) of distal vein of left lower extremity, unspecified chronicity (CMS/HCC V24, CMS/HCC V28) Antiphospholipid antibody with hypercoagulable state (CMS/HCC V24) CBC WITH AUTO DIFFERENTIAL Routine 11/14/2024 11:16 AM EDT Autoimmune hemolytic anemia (CMS/HCC V24, CMS/HCC V28) BILIRUBIN, TOTAL Routine 11/14/2024 11:1 6 AM EDT Autoimmune hemolytic anemia (CMS/HCC V24, CMS/HCC V28) CREATININE, SERUM Routine 11/14/2024 11: 16 AM EDT Autoimmune hemolytic anemia (CMS/HCC V24, CMS/HCC V28) BUN Routine 11/14/2024 11:16 AM EDT Autoimmune hemolytic anemia (CMS/HCC V24, CMS/HCC V28) HAPTOGLOBIN Routine 11/14/2024 11:16 AM EDT Autoimmune hemolytic anemia (CMS/HCC V24, CMS/HCC V28) LACTATE DEHYDROGENASE Routine 11/14/2024 11:16 AM EDT Autoimmune hemolytic anemia (CMS/HCC V24, CMS/HCC V28) CBC AND DIFFERENTIAL Routine 11/14/2024 11:16 AM EDT Autoimmune hemolytic anemia (CMS/HCC V24, CMS/HCC V28) PROTHROMBIN TIME WITH INR Routine 11/14/2024 11:16 AM EDT [facility] (current) use of anticoagulants Deep vein thrombosis (DVT) of distal vein of left lower extremity, unspecified chronicity (CMS/HCC V24, CMS/HCC V28) Antiphospholipid antibody with hypercoagulable state (CMS/HCC V24) RBC MORPHOLOGY REVIEW Routine 10/31/2024 9:36 AM EDT Autoimmune hemolytic anemia (CMS/HCC V24, CMS/HCC V28) CBC WITH AUTO DIFFERENTIAL Routine 10/31/2024 9:36 AM EDT Autoimmune hemolytic anemia (CMS/HCC V24, CMS/HCC V28) BILIRUBIN, TOTAL Routine 10/31/2024 9:36 AM EDT Autoimmune hemolytic anemia (CMS/HCC V24, CMS/HCC V28) CREATININE, SERUM Routine 10/31/2024 9:3 6 AM EDT Autoimmune hemolytic anemia (CMS/HCC V24, CMS/HCC V28) BUN Routine 10/31/2024 9:36 AM EDT Autoimmune hemolytic anemia (CMS/HCC V24, CMS/HCC V28) HAPTOGLOBIN Routine 10/31/2024 9:36 AM EDT Autoimmune hemolytic anemia (CMS/HCC V24, CMS/HCC V28) LACTATE DEHYDROGENASE Routine 10/31/2024 9:36 AM EDT Autoimmune hemolytic anemia (CMS/HCC V24, CMS/HCC V28) CBC AND DIFFERENTIAL Routine 10/31/2024 9:36 AM EDT Autoimmune hemolytic anemia (CMS/HCC V24, CMS/HCC V28) PROTHROMBIN TIME WITH INR Routine 10/31/2024 9:36 AM EDT intermission coordinator (current) use of anticoagulants Deep vein thrombosis (DVT) of distal vein of left lower extremity, unspecified chronicity (CMS/HCC V24, CMS/HCC V28) Antiphospholipid antibody with hypercoagulable state (CMS/HCC V24) PROTHROMBIN TIME WITH INR Routine 10/16/2024 10:36 AM EDT [facility] (current) use of anticoagulants Deep vein thrombosis (DVT) of distal vein of left lower extremity, unspecified chronicity (CMS/HCC V24, CMS/HCC V28) Antiphospholipid antibody with hypercoagulable state (CMS/HCC V24) RAD ONC MSQ TREATMENT SUMMARY Routine 10/14/2024 11:24 AM EDT LIPID PANEL WITH REFLEX TO DIRECT LDL Routine 07/29/2024 8:38 AM EDT Type 2 diabetes mellitus without complication, without long-term current use of insulin (CMS/HCC V24, CMS/HCC V28) Autoimmune hemolytic anemia (CMS/HCC V24, CMS/HCC V28) Primary hypertension from Last 3 Months or Most Recently Relevant to Health Maintenance Results * PET CT Skull to Mid [...] Signed Date: 01/10/2025 06:05 ET Workstation ID: [id number] Transcribed By: Self Edit Transcribed Date: 01/10/2025 [...] Signed Date: 01/10/2025 06:05 ET Workstation ID: [id number] Transcribed By: Self Edit Transcribed Date: 01/10/2025 04:59 ET Rosalba Santiago MD [facility] [place] Final Result * Microalbumin creatinine urine ratio (01/09/2025 2:28 PM EDT) Creatinine, Urine 106.0 mg/dL LAB CHEMISTRY METHOD 01/09/2025 5:23 PM EDT [facility] Microalb, Ur 20.8 0.0 - 29.0 mg/L LAB CHEMISTRY METHOD 01/09/2025 5:23 PM EDT [facility] Microalb/Creat Ratio 20 <30 mg/g creat LAB CHEMISTRY METHOD 01/09/2025 5:23 PM EDT [facility] Urine Urine specimen obtained by clean catch procedure / Unknown Non-blood Collection / Unknown 01/09/2025 2:28 PM EDT 01/09/2025 4:34 PM EDT us Betito Fisher MD LAB URINE ORDERABLES Final Res ult Performing Organization Address [facility] de Phone Number [facility] [address] [place] [address], [place] [phone] * Vitamin D 25 hydroxy (01/09/2025 1:17 PM EDT) Vit D, 25-Hydroxy 57.0 30.0 - 80.0 ng/mL LAB CHEMISTRY METHOD 01/09/2025 5:49 PM EDT [facility] Blood Venous blood specimen / Unknown Venipuncture / Unknown 01/09/2025 1:17 PM EDT 01/09/2025 4:35 PM EDT us Betito Fisher MD LAB BLOOD ORDERABLES Final Res ult Performing Organization Address [facility] de Phone Number [facility] [address] [place] [address], [place] [phone] * Parathyroid hormone intact (01/09/2025 1:17 PM EDT) PTH 32.7 18.5 - 88.0 pcg/mL LAB CHEMISTRY METHOD 01/09/2025 5:50 PM EDT [facility] Blood Venous blood specimen / Unknown Venipuncture / Unknown 01/09/2025 1:17 PM EDT 01/09/2025 4:35 PM EDT us Betito Fisher MD LAB BLOOD ORDERABLES Final Res ult Performing Organization Address City/[facility]/ZIP Co de Phone Number [facility] [address] [place] [address], [place] [phone] * (ABNORMAL) Basic metabolic panel (01/09/2025 1:17 PM EDT) Sodium 137 133 - 145 mmol/L LAB CHEMISTRY METHOD 01/09/2025 5:04 PM [facility] Potassium 4.5 3.5 - 5.5 mmol/L LAB CHEMISTRY METHOD 01/09/2025 5:04 PM [facility] Chloride 103 96 - 110 mmol/L LAB CHEMISTRY METHOD 01/09/2025 5:04 PM [facility] CO2 27 21 - 32 mmol/L LAB CHEMISTRY METHOD 01/09/2025 5:04 PM [facility] Anion Gap 7 3 - 11 LAB CHEMISTRY METHOD 01/09/2025 5:04 PM [facility] Glucose 157(H) 70 - 100 mg/dL LAB CHEMISTRY METHOD 01/09/2025 5:04 PM [facility] BUN 19 5 - 25 mg/dL LAB CHEMISTRY METHOD 01/09/2025 5:04 PM [facility] Creatinine 1.45(H) 0.70 - 1.30 mg/dL LAB CHEMISTRY METHOD 01/09/2025 5:04 PM [facility] eGFR 51(L) >=60 mL/min/1. 73m2 LAB CHEMISTRY METHOD 01/09/2025 5:04 PM [facility] Comment:Calculation based on the Chronic Kidney Disease Epidemiology Collaboration (CKD-EPI) equation refit without adjustment for race. BUN/Creatinine Ratio 13.1 LAB CHEMISTRY METHOD 01/09/2025 5:04 PM [facility] Calcium 9.1 8.5 - 10.5 mg/dL LAB CHEMISTRY METHOD 01/09/2025 5:04 PM [facility] Blood Venous blood specimen / Unknown Venipuncture / Unknown 01/09/2025 1:17 PM EDT 01/09/2025 4:35 PM EDT us Betito Fisher MD LAB BLOOD ORDERABLES Final Res ult [facility] [address] [place] [address], [place] [phone] * (ABNORMAL) CBC auto differential (01/09/2025 1:16 PM EDT) Only the most recent of4 resultswithin the time period is included. WBC 15.4(H) 4.8 - 10.8 K/mcL LAB HEMETOLOGY METHOD 01/09/2025 4:45 PM EDT [facility] RBC 5.50 4.50 - 5.50 M/mcL LAB HEMETOLOGY METHOD 01/09/2025 4:45 PM EDT [facility] Hemoglobin 15.0 13.5 - 17.5 g/dL LAB HEMETOLOGY METHOD 01/09/2025 4:45 PM EDT [facility] Hematocrit 48.0 42.0 - 54.0 % LAB HEMETOLOGY METHOD 01/09/2025 4:45 PM EDT [facility] MCV 87.8 79.0 - 98.0 FL LAB HEMETOLOGY METHOD 01/09/2025 4:45 PM EDT [facility] MCH 27.4 27.0 - 32.0 pcg LAB HEMETOLOGY METHOD 01/09/2025 4:45 PM EDT [facility] MCHC 31.3(L) 32.0 - 37.0 g/dL LAB HEMETOLOGY METHOD 01/09/2025 4:45 PM EDT [facility] RDW 15.8(H) 11.0 - 15.0 % LAB HEMETOLOGY METHOD 01/09/2025 4:45 PM EDT [facility] Platelets 385 130 - 400 K/mcL LAB HEMETOLOGY METHOD 01/09/2025 4:45 PM EDT [facility] MPV 11.1(H) 7.0 - 11.0 FL LAB HEMETOLOGY METHOD 01/09/2025 4:45 PM EDT [facility] NRBC 0.0 <1.0 % LAB HEMETOLOGY METHOD 01/09/2025 4:45 PM EDT [facility] NRBC Absolute 0.00 <0.10 K/mcL LAB HEMETOLOGY METHOD 01/09/2025 4:45 PM EDT [facility] Neutrophils Relative 68.8 % LAB HEMETOLOGY METHOD 01/09[facility]2025 [facility] Lymphocytes Relative 24.2 % LAB HEMETOLOGY METHOD 01/09/2025 4:45 PM EDT [facility] Monocytes Relative 5.8 % LAB HEMETOLOGY METHOD 01/09/2025 4:45 PM EDT [facility] Eosinophils Relative 0.3 % LAB HEMETOLOGY METHOD 01/09/2025 4:[facility] Basophils Relative 0.3 % LAB HEMETOLOGY METHOD 01/09/2025 4:45 PM [facility] Immature Granulocytes Relative 0.6 % LAB HEMETOLOGY METHOD 01/09/2025 4:45 PM EDT [facility] Neutrophils Absolute 10.59(H) 1.50 - 7.00 K/mcL LAB HEMETOLOGY METHOD 01/09/2025 4:45 PM EDT [facility] Lymphocytes Absolute 3.73 1.00 - 5.00 K/mcL LAB HEMETOLOGY METHOD 01/09/2025 4:45 PM EDT [facility] Monocytes Absolute 0.90 0.20 - 1.00 K/mcL LAB HEMETOLOGY METHOD 01/09/2025 4:45 PM EDT [facility] Eosinophils Absolute 0.05 0.00 - 0.50 K/[facility] LAB HEMETOLOGY METHOD 01/09/2025 4:45 PM EDT [facility] Basophils Absolute 0.05 0.00 - 0.20 K/mcL LAB HEMETOLOGY METHOD 01/09/2025 4:45 PM EDT [facility] Immature Granulocytes Absolute 0.10(H) 0.00 - 0.03 K/[facility] LAB HEMETOLOGY METHOD 01/09/2025 4:45 PM EDT [facility] Blood Venous blood specimen / Unknown Venipuncture / Unknown 01/09/2025 1:16 PM EDT 01/09/2025 4:36 PM EDT us Edmund Meraz MD LAB BLOOD ORDERABLE S Final Result [facility] [address] [place] [address], [place] [phone] * (ABNORMAL) Creatinine (01/09/2025 1:16 PM EDT) Only the most recent of4 resultswithin the time period is included. Creatinine 1.37(H) 0.70 - 1.30 mg/dL LAB CHEMISTRY METHOD 01/09/2025 5:02 PM EDT [facility] eGFR 54(L) >=60 mL/min/1. 73m2 LAB CHEMISTRY METHOD 01/09/2025 5:02 PM EDT [facility] Comment:Calculation based on the Chronic Kidney Disease Epidemiology Collaboration (CKD-EPI) equation refit without adjustment for race. Blood Venous blood specimen / Unknown Venipuncture / Unknown 01/09/2025 1:16 PM EDT 01/09/2025 4:35 PM EDT us Edmund Meraz MD LAB BLOOD ORDERABLE S Final Result [facility] [address] [place] [address], [place] [phone] * (ABNORMAL) Prothrombin time with INR (01/09/2025 1:16 PM EDT) Only the most recent of6 resultswithin the time period is included. Protime 24.6(H) 10.6 - 13.9 sec LAB COAGULATION METHOD 01/09/2025 2:43 PM EDT [facility] INR 2.0 LAB COAGULATION METHOD 01/09/2025 2:43 PM EDT [facility] Blood Venous blood specimen / Unknown Venipuncture / Unknown 01/09/2025 1:16 PM EDT 01/09/2025 2:34 PM EDT us Randa Yip MD LAB BLOOD ORDERABLES Final Res ult Performing Organization Address [facility] de Phone Number [facility] [address] [place] [address], [place] [phone] * BUN (01/09/2025 1:16 PM EDT) Only the most recent of4 resultswithin the time period is included. BUN 20 5 - 25 mg/dL LAB CHEMISTRY METHOD 01/09/2025 5:02 PM EDT [facility] Blood Venous blood specimen / Unknown Venipuncture / Unknown 01/09/2025 1:16 PM EDT 01/09/2025 4:35 PM EDT Edmund Meraz MD LAB BLOOD ORDERABLE S Final Result Performing Organization Address [facility] Co de Phone Number [facility] [address] [place] [address], [place] [phone] * Bilirubin, total (01/09/2025 1:16 PM EDT) Only the most recent of4 resultswithin the time period is included. Total Bilirubin 0.7 0.0 - 1.4 mg/dL LAB CHEMISTRY METHOD 01/09/2025 5:02 PM EDT [facility] Blood Venous blood specimen / Unknown Venipuncture / Unknown 01/09/2025 1:16 PM EDT 01/09/2025 4:35 PM EDT us Edmund Meraz MD LAB BLOOD ORDERABLE S Final Result Performing Organization Address [facility]/ZIP Co de Phone Number [facility] [address] [place] [address], [place] [phone] * External Ultrasound Report (12/05/2024) Anatomical Region Laterality Modality Ultrasound us Provider [facility] US PROCEDURES Final Result * (ABNORMAL) RBC morphology review (11/28/2024 9:54 AM EDT) Only the most recent of2 resultswithin the time period is included. Rbc Morphology Consistent with indices Consistent with indices, Normal for [place] LAB HEMETOLOGY METHOD 11/28/2024 12:45 PM EDT [facility] Platelet Morphology - WAM See Note(A) Normal LAB HEMETOLOGY METHOD 11/28/2024 12:45 PM EDT [facility] Comment:PLT: Normal Blood Venous blood specimen / Unknown Venipuncture / Unknown 11/28/2024 9:54 AM EDT 11/28/2024 11:18 AM EDT us Edmund Meraz MD LAB BLOOD ORDERABLE S Final Result Performing Organization Address City/[facility]/ZIP Co de Phone Number [facility] [address] [place] [address], [place] [phone] * Thyroid stimulating hormone (11/28/2024 9:54 AM EDT) Pathologist [facility] TSH 0.89 0.40 - 4.00 mcIU/mL LAB CHEMISTRY METHOD 11/28/2024 2:54 PM EDT [facility] Blood Venous blood specimen / Unknown Venipuncture / Unknown 11/28/2024 9:54 AM EDT 11/28/2024 11:17 AM EDT Randa Yip MD LAB BLOOD ORDERABLES Final Res ult Performing Organization Address [facility]/ZIP Co de Phone Number [facility] [address] [place] [address], [place] [phone] * Lactate dehydrogenase (11/28/2024 9:54 AM EDT) Only the most recent of3 resultswithin the time period is included. [facility] LDH 233 120 - 246 unit/L LAB CHEMISTRY METHOD 11/28/2024 1:49 PM EDT [facility] Blood Venous blood specimen / Unknown Venipuncture / Unknown 11/28/2024 9:54 AM EDT 11/28/2024 11:17 AM EDT Edmund Meraz MD LAB BLOOD ORDERABLE S Final Result Performing Organization Address [facility] Co de Phone Number [facility] [address] [place] [address], [place] [phone] * (ABNORMAL) Hemoglobin A1c (11/28/2024 9:54 AM EDT) [facility] Hemoglobin A1C 8.1(H) <6.5 % LAB CHEMISTRY METHOD 11/28/2024 10:02 PM EDT [facility] Mean Bld Glu Estim. 186 mg/dL LAB CHEMISTRY METHOD 11/28/2024 10:02 PM EDT [facility] Blood Venous blood specimen / Unknown Venipuncture / Unknown 11/28/2024 9:54 AM EDT 11/28/2024 11:18 AM EDT Randa Yip MD LAB BLOOD ORDERABLES Final Res ult Performing Organization Address [facility]/ZIP Co de Phone Number [facility] [address] [place] [address], [place] [phone] * Haptoglobin (11/28/2024 9:54 AM EDT) Only the most recent of3 resultswithin the time period is included. [facility] Haptoglobin 153 16 - 200 mg/dL LAB CHEMISTRY METHOD 11/28/2024 1:49 PM EDT [facility] Blood Venous blood specimen / Unknown Venipuncture / Unknown 11/28/2024 9:54 AM EDT 11/28/2024 11:17 AM EDT Edmund Meraz MD LAB BLOOD ORDERABLE S Final Result Performing Organization Address [facility] Co de Phone Number [facility] [address] [place] [address], [place] [phone] * Rad Onc Msq Treatment Summary (10/14/2024 11:24 AM EDT) [facility] Treatment Site L lower lobe MOSAIQ RADIATION ONCOLOGY Course Number 1 MOSAIQ RADIATION ONCOLOGY Prescribed Fractional Dose 1,200 cGray MOSAIQ RADIATION ONCOLOGY Prescribed Total Dose 4,800 cGray MOSAIQ RADIATION ONCOLOGY Actual Fractions Delivered 3 MOSAIQ RADIATION ONCOLOGY Actual Session Delivered Dose 1,200 cGray MOSAIQ RADIATION ONCOLOGY Actual Total Dose 3,600 cGray MOSAIQ RADIATION ONCOLOGY Prescribed Technique SBRT VMAT MOSAIQ RADIATION ONCOLOGY Elapsed Days 5 MOSAIQ RADIATION ONCOLOGY Start Date 10/09/2024 MOSAIQ RADIATION ONCOLOGY Last Date 10/14/2024 MOSAIQ RADIATION ONCOLOGY Prescribed Number of Fractions 4 MOSAIQ RADIATION ONCOLOGY 10/14/2024 11:2 4 AM EDT Physician Radiation Oncology RADIATION ONCOLO GY ORDERABLES Final Result Performing Organization Address City/State/[facility] Co de Phone Number MOSAIQ RADIATION ONCOLOGY * (ABNORMAL) Lipid panel with reflex to direct LDL (07/29/2024 8:38 AM EDT) Cholesterol 163 0 - 200 mg/dL LAB CHEMISTRY METHOD 07/29/2024 11:45 AM EDT [facility] Triglycerides 183(H) 0 - 150 mg/dL LAB CHEMISTRY METHOD 07/29/2024 11:45 AM EDT [facility] HDL 39(L) >=40 mg/dL LAB CHEMISTRY METHOD 07/29/2024 11:45 AM EDT [facility] LDL Calculated 87 0 - 100 mg/dL LAB CHEMISTRY METHOD 07/29/2024 11:45 AM EDT [facility] VLDL Cholesterol [place] 36.6 mg/dL LAB CHEMISTRY METHOD 07/29/2024 11:45 AM EDT [facility] Non HDL Chol. (LDL+VLDL) 124 <145 mg/dL LAB CHEMISTRY METHOD 07/29/2024 11:45 AM EDT [facility] Chol/HDL Ratio 4.2 0.0 - 4.4 LAB CHEMISTRY METHOD 07/29/2024 11:45 AM T [facility] Blood Venous blood specimen / Unknown Venipuncture / Unknown 07/29/2024 8:38 AM EDT 07/29/2024 11:12 AM EDT us Randa Yip MD LAB BLOOD ORDERABLES Final Res ult [facility] [address] [place] [address], from Last 3 Months or Most Recently Relevant to Health Maintenance Insurance [facility] MEDICARE Member Subscriber Plan / Payer (Ef fective 2021-Present) Name:Maycol Keen Relation to Subscriber:Self Name:Maycol Keen Payer ID:[id number] Group ID:[id number] Type:Not on file Address: [place] [address] [address] [id number] Advance Directives Documents on File Type Date Recorded Patient Director Family Expl anation Health Care Decision (hx) 03/10/2023 AD BLOCK DIRECTIVE Health Care Decision (hx) 03/10/2023 AD BLOCK DIRECTIVE Health Care Decision (hx) 03/10/2023 AD BLOCK DIRECTIVE Health Care Decision (hx) 03/10/2023 AD BLOCK DIRECTIVE Care Teams Pl[employer] Fab[employer]ator Relationship Specialty Start Date End Date Randa Yip MD [address] [place] [address] [phone] PCP - General Internal Medicine 02/16/24
--- OUTSIDE RECORDS SUMMARY | 2025-01-13 16:06 | XMS_ITS ---
Author Name [facility] Organization Unknown Results Test Name/Text Value Interpretation Date Range Source Ref Lab Test Results See Scanned Result 08/14/2024 [facility] Ref Lab Test Results See Scanned Result 08/14/2024 [facility] Ref Lab Test Results See Scanned Result 08/13/2024 [facility] Clinical Information In cyto 08/06/2024 [facility] Citation Ref Lab Test The technical components [place] [address] CLIA # [id number] 08/06/2024 [facility] INR PPP 1.4 Above high normal 07/31/2024 0.8 - 1.1 C [facility] PT Bld 15.5 sec Above high normal 07/31/2024 10.5 - 13.3 [facility] Glucose Bld-mCnc 154.0 mg/dL 07/31/2024 70 - 199 [facility] History of Medication Use Medication Directions Dispensed Refills Start Date End Date Stat ipratropium-albuteroL (DUONEB) 0.5-2.5 mg/3 mL nebulizer solution 3 mL 3 mL, nebulization, Once as needed, wheezing, Starting on Mon07/31/24 at 1624, For 1 dose, Recovery (only) 07/31/2024 completed acetaminophen (TYLENOL) tablet 650 mg 650 mg, oral, Once as needed, mild pain, Starting on Mon07/31/24 at 1624, For 1 dose, Recovery (only), For Pain (1-3) 07/31/2024 active dexAMETHasone (DECADRON) injection 4 mg 4 mg, intravenous, Once as needed, Nausea and Vomitting, Starting on Mon07/31/24 at 1624, For 1 dose, Recovery (only), Administer 2nd unless given in the OR 07/31/2024 active HYDROmorphone (DILAUDID) injection 0.2 mg 0.2 mg, intravenous, Every 15 min PRN, moderate pain, Starting on Mon07/31/24 at 1624, For 4 doses, Recovery (only), For Pain (4-6). DO NOT EXCEED 2 MG 07/31/2024 active HYDROmorphone (DILAUDID) injection 0.5 mg 0.5 mg, intravenous, Every 15 min PRN, severe pain, Starting on Mon07/31/24 at 1624, For 4 doses, Recovery (only), For Pain (7-10) 07/31/2024 active ondansetron (PF) (ZOFRAN) injection 4 mg 4 mg, intravenous, Once as needed, nausea, vomiting, Starting on Mon07/31/24 at 1624, For 1 dose, Recovery (only), Infuse over 2 minutes. Administer 1st unless given in OR then give dexamethasone. 07/31/2024 active orphenadrine (NORFLEX) injection 30 mg 30 mg, intravenous, Once as needed, muscle spasms, Starting on Mon07/31/24 at 1624, For 1 dose, Recovery (only) 07/31/2024 active oxyCODONE (ROXICODONE) immediate release tablet 5 mg 5 mg, oral, Every 4 hours PRN, moderate pain, severe pain, For Pain (4-6), Starting on Mon07/31/24 at 1624, For 2 doses, Recovery (only) 07/31/2024 active sodium chloride 0.9 % flush 10 mL [Order 1 Start] Name: Insert peripheral IV Signed Summary: STAT, Once, On Mon07/31/24 at 1332, For 1 occurrence, Preprocedure [Order 1 End] [Order 2 Start] Name: Maintain IV access Signed Summary: Until discontinued, Starting on Mon07/31/24 at 1332, Until Specified, Preprocedure [Order 2 End] [Order 07/31/2024 active cholecalciferol (Vitamin D3) 50 mcg (2,000 unit) tablet Take 1 tablet (2,000 Units total) by mouth 1 (one) time each day. 07/25/2024 aborted warfarin (COUMADIN) 5 mg tablet Take 1 tablet (5 mg total) by mouth 1 (one) time each day. 06/26/2024 active predniSONE (DELTASONE) 10 mg tablet TAKE 1 TABLET BY MOUTH EVERY DAY 06/03/2024 active melatonin 5 mg tablet TAKE 2 TABLETS BY MOUTH EVERY DAY 05/24/2024 active warfarin (COUMADIN) 1 mg tablet Take 1 tablet (1 mg total) by mouth 1 (one) time each day with dinner. 05/21/2024 active dulaglutide (Trulicity) 1.5 mg/0.5 mL pen injector injection Inject 0.5 mL (1.5 mg total) under the skin every 7 (seven) days. 04/29/2024 active enoxaparin (Lovenox) 120 mg/0.8 mL syringe injection Inject 0.8 mL (120 mg total) under the skin every 12 (twelve) hours. 04/09/2024 active atenoloL (TENORMIN) 25 mg tablet TAKE 1 TABLET BY MOUTH EVERY DAY 02/27/2024 active furosemide (LASIX) 20 mg tablet TAKE 1 TABLET BY MOUTH EVERY DAY 02/27/2024 active magnesium oxide (MAG-OX) 400 mg (241.3 elemental magnesium) tablet TAKE 1 TABLET BY MOUTH EVERY DAY 02/27/2024 active amLODIPine (NORVASC) 10 mg tablet TAKE 1 TABLET BY MOUTH EVERY DAY 02/01/2024 active ergocalciferol (VITAMIN D-2) 1,250 mcg (50,000 unit) capsule Take 1 capsule (50,000 Units total) by mouth 1 (one) time per week. 03/14/2023 active lisinopriL (PRINIVIL,ZESTRIL) 20 mg tablet Take 1 tablet (20 mg total) by mouth daily. 02/18/2019 active umeclidinium-vilanter oL (ANORO ELLIPTA) 62.5-25 mcg/actuation inhaler 1 puff by Inhaled route daily. 06/09/2017 active carvediloL (COREG) 6.25 mg tablet Take 1 tablet (6.25 mg total) by mouth 2 (two) times a day with meals. active ezetimibe (ZETIA) 10 mg tablet Take 1 tablet (10 mg total) by mouth daily. active fluticasone (VERAMYST) 27.5 mcg/actuation nasal spray Administer 2 sprays into each nostril 1 (one) time each day. As needed active folic acid (FOLVITE) 1 mg tablet Take 1 tablet (1 mg total) by mouth daily. active gabapentin (NEURONTIN) 100 mg capsule Take 1 capsule (100 mg total) by mouth 3 (three) times a day. active omeprazole (PriLOSEC) [address] capsule Take 1 capsule (20 mg total) by mouth daily. active Allergies Allergen Reaction Severity Comment Documented Date Source Statu s ADHESIVE TAPE-SILICONES RASH 04/26/2024 [facility] active HYDRALAZINE 01/20/2021 [facility] active PRAVASTATIN Jaundice 08/04/2016 [facility] activ e Problems Problem Status Onset Date Problem Type Date of Resolution Source Allergic rhinitis active 2016-10-11 1 ProblemAct [facility] Deep vein thrombosis (DVT) of lower extremity ([facility] V24, [facility] V28) active 2016-10-11 1 ProblemAct [facility] Ulcer of ankle ([facility] V24, [facility] V28) active 2016-05-12 7 ProblemAct [facility] N CKD (chronic kidney disease) stage 3, GFR 30-59 ml/min ([facility] V24, [facility] V28) active 2013-02-10 0 ProblemAct [facility] Microscopic hematuria active 2012-01-13 7 ProblemAct [facility] Obstructive sleep apnea syndrome active 2016-12-13 0 ProblemAct [facility] Chronic obstructive pulmonary disease ([facility] V24, [facility] V28) active 2016-10-11 1 ProblemAct [facility] Multiple pulmonary nodules active 2016-10-11 1 ProblemAct [facility] Lichen planus active 2016-05-12 7 ProblemAct [facility] Hypertension active 6 ProblemAct [facility] Malignant neoplasm of overlapping sites of bladder ([facility] V24, [facility] V28) active 2014-02-10 1 ProblemAct [facility] Autoimmune hemolytic anemia ([facility] V24, [facility] V28) active 2016-07-12 5 ProblemAct [facility] N Antiphospholipid antibody with hypercoagulable state (CMS/HCC V24) active 2024-01-12 4 ProblemAct [facility] Weight loss active 2020-01-12 7 ProblemAct [facility] Aortic valve sclerosis active 2014-02-10 1 ProblemAct [facility] Asymptomatic varicose veins of lower extremity active 5 ProblemAct [facility] Hypercholesterolemia active 2 ProblemAct [facility] Eczema active 2016-06-12 8 ProblemAct [facility] Steatosis of liver active 2013-02-10 0 ProblemAct [facility] Pain active EncounterDiagnosisAct [facility] N FPC (current) use of anticoagulants active 6 ProblemAct [facility] N Encounters Encounter Type Encounter Reason Primary Diagnosis Location Date Ambulatory Pain, unspecified Pain, unspecified [facility] 07/31/2024 Ambulatory Solitary pulmonary nodule Solitary pulmonary nodule [facility] 07/31/2024 Care Team Organization Name Specialty Phone Email Start Date End Da te [facility] 07/26/2024 [facility] 07/26/2024 [facility] 01/18/2022 10/30/19 24
--- OUTSIDE RECORDS SUMMARY | 2025-01-13 16:06 | XMS_ITS | Clinical Summary ---
Author Organization [facility] Facility Address [address] [place] [address] Care Team Providers [facility] [employer] Name Role Phone Unavailable Primary Care Provider Unavailabl e Medications ergocalciferol 1.25 MG (62481 UT) capsule TAKE 1 CAPSULE BY MOUTH ONE TIME PER WEEK 12 capsule 11 03/14/2023 Active Encounters Date Type Department Care Team Description 01/09/2025 Orders Only [facility] [address] [place] [id number] Betito Fisher MD from Last 3 Months Social History Tobacco Use Types Packs/Day Years Used Date Smoking Tobacco: Never Assessed Sex and Gender Information Value Date Recorded Sex Assigned at Not on file Legal Sex Male 4:51 PM EST Gender Identity Not on file Sexual Orientation Not on file Plan of Treatment Health Maintenance Due Date Last Done Comments Colorectal Cancer Screening: Annual FOBT 1999 Colorectal Cancer Screening: Colonoscopy 1999 Colorectal Cancer Screening: Sigmoidoscopy 1999 Hepatitis B Vaccine (1 of 3 - Risk 3-dose series) 2010 Pneumococcal Vaccine: 50+ Ye ars (4 of 4 - PCV20 or PCV21) 04/27/2023 04/27/2018, 01/23/2015, 02/10/2011 Diabetes: Ophthalmology Exam 05/28/2024 Diabetes: Pedal Pulse Checked 05/28/2024 Diabetes: Sensory Foot Exam 05/28/2024 Diabetes: Visual Foot Exam 05/28/2024 Diabetes: Hemoglobin A1C 07/08/2024 04/09/2024, 03/14 Influenza Vaccine (#1) 2024 , 12/22/2020, 12/20/2020, Additional history exists Pneumococcal Vaccine: Peds ( 0 to 5 Years) and At-Risk Patients (6 to 49 Years) Discontinued 04/27/2018, 01/23/2015, 02/10/2011 Procedures Procedure Name Priority Date/Time Associated Diagnosis Comments URINE ALBUMIN / CREATININE RATIO Routine 01/09/2025 2:28 PM EDT PTH, INTACT Routine 01/09/2025 1:17 PM EDT VITAMIN D 25 HYDROXY Routine 01/09/2025 1:17 PM EDT BASIC METABOLIC PANEL Routine 01/09/2025 1:17 PM EDT from Last 3 Months Results * Urine Albumin / Creatinine Ratio (01/09/2025 2:28 PM EDT) Creatinine, Urine 106.0 mg/dL [facility] Microalbumin Urine Random 20.8 0.0 - 29.0 mg/L [facility] Microalbumin/Crea tinine Ratio 20 <30 [facility] 01/09/2025 2:28 PM EDT 01/09/2025 4:34 PM EDT us Betito Fisher MD LAB URINE ORDERABLES Final Resul t Performing Organization Address [facility]/ZIP Co de Phone Number ROMELIA [facility] [address] [place] [address] * Vitamin D 25 Hydroxy (01/09/2025 1:17 PM EDT) Vitamin D, 25-OH, Total 57.0 30.0 - 80.0 ng/mL [facility] 01/09/2025 1:17 PM EDT 01/09/2025 4:35 PM EDT us Betito Fisher MD LAB BLOOD ORDERABLES Final Resul t [facility] [address] [place] [address] * PTH, Intact (01/09/2025 1:17 PM EDT) Pathologist [facility] PTH 32.7 18.5 - 88.0 pcg/mL [facility] 01/09/2025 1:17 PM EDT 01/09/2025 4:35 PM EDT Betito Fisher MD LAB BLOOD ORDERABLES Final Resul t [facility] [address] [place] [address] * (ABNORMAL) Basic Metabolic Panel (01/09/2025 1:17 PM EDT) Pathologist [facility] Sodium 137 133 - 145 mmol/L [facility] Potassium 4.5 3.5 - 5.5 mmol/L [facility] Chloride 103 96 - 110 mmol/L [facility] Bicarbonate (CO2) 27 21 - 32 mmol/L [facility] Anion Gap 7 3 - 11 [facility] Glucose 157(H) 70 - 100 mg/dL [facility] BUN 19 5 - 25 mg/dL [facility] Creatinine Serum 1.45(H) 0.70 - 1.30 mg/dL [facility] eGFR 51(L) >=60 mL/min/1. 73m2 [facility] Comment:Calculation based on the Chronic Kidney Disease Epidemiology Collaboration (CKD-EPI) equation refit without adjustment for race. BUN/Creatinine Ratio 13.1 [facility] Calcium 9.1 8.5 - 10.5 mg/dL [facility] 01/09/2025 1:17 PM EDT 01/09/2025 4:35 PM EDT us Betito Fisher MD LAB BLOOD ORDERABLES Final Resul t [facility]ELIA [facility] [place] ([facility] [address] [place] [address] from Last 3 Months
--- OUTSIDE RECORDS SUMMARY | 2025-01-13 16:06 | XMS_ITS | Data Portability ---
Author Organization [place] - [facility], Allergy Address [address] [place] [phone] Assessment Encounter Date Assessment Date Assessment LastModified [...] in amplification. [email or web address] Not available 03/18/2024 14:48:48 09/03/2024 09/03/2024 74-year-old male presents for reevaluation of asymmetric sensorineural hearing loss, left greater than right. Otologic exam is fairly unremarkable. Audiometric testing was repeated today showing persistent sensorineural hearing loss with conductive overlay bilaterally. Hearing seems to be more stable now given conductive overlay which may be due to middle ear dysfunction related to sinus infection. Recommended continued observation in terms of hearing with repeat hearing test in about 6 months. Certainly good candidate for amplification. He is now interested. Was provided bilateral clearance and [facility]. In regard to anosmia and symptoms consistent with sinus infection for more than a month would recommend a course of antibiotic. Will call to pharmacy. Follow-up in 4 to 6 weeks for reevaluation. If he remains symptomatic consider CT sinus that day. All questions were answered. [email or web address] Not available 09/03/2024 15:58:31 10/23/2024 10/23/2024 74-year-old male presents for sinus CT. 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 He also has evidence of polyps particularly on the left side. Given these results would recommend extending course of antibiotic and the addition of budesonide rinses. He was instructed in proper use. Likely seasonal allergy as the underlying cause of sinus infections and ETD. He is on carvedilol so we will order RAST testing. Would also recommend CBC and immune studies. Recommended follow-up with Dr. Salomon for possible surgical intervention though he has a multitude of other medical issues and may not be a good surgical candidate. CT scan and plan were reviewed with Dr. Granado. All questions were answered. al Not available 10/23/2024 15:36:03 10/30/2024 10/30/2024 We reviewed the clinic findings today with the patient and had an extensive discussion on the natural history of their symptoms and the pathology causing them. The patient has progressive and bothersome symptoms noted previously in the HPI consistent with CRSwNP, which have not improved with optimal medical therapy which include terminal block assembler use of nasal saline, nasal steroid, and multiple antibiotic/stero id courses. These findings were confirmed on Nasal Endoscopy and CT . Options were discussed, including conservative management, further medical management with topical, oral, or immunotherapy, and/or surgical intervention. - They are loving budesonide rinses. BID, will continue - 6 months RV [email or web address] Not available 10/30/2024 14:13:22 Plan of Treatment Reminders Order Date Submit Date Provider Last Modified By Organization Details Last Modified Time Details Appointments Establish ed 15 2025 01:45P Darrius Salomon, DO Not available Not available Not available Lab haemophil us influenza e B IgG Ab, quantitat saeed, serum, immunoass ay 2024 025 [email or web address] (Centralized Electronic Ordering - All Locations), Patient Can Go To The Location Of Their Choice, [id number] 11/12/2024 15:42:14 unlisted lab - pneumococ leo Ab (23 serotype) 2024 025 [email or web address] (Centralized Electronic Ordering - All Locations), Patient Can Go To The Location Of Their Choice, [facility] 11/12/2024 15:42:14 CBC w/ auto diff 2024 025 [facility] (Centralized Electronic Ordering - All Locations), Patient Can Go To The Location Of Their Choice, [facility] 11/12/2024 15:42:14 ige, total, serum 2024 [facility] (Centralized Electronic Ordering - All Locations), Patient Can Go To The Location Of Their Choice, [facility] 11/12/2024 15:42:14 immunoglo bulins iga+igg+i gm, quantitat saeed, serum 2024 [facility] (Centralized Electronic Ordering - All Locations), Patient Can Go To The Location Of Their Choice, [facility] 11/12/2024 15:42:[address] + total, serum 2024 [facility] (Centralized Electronic Ordering - All Locations), Patient Can Go To The Location Of Their Choice, [facility] 11/12/2024 15:42:14 Referral None recorded. Procedures None recorded. Surgeries None recorded. Imaging CT, sinuses, w/o contrast 2024 [email or web address] [facility], [address] [place] [address], [phone], 10/23/2024 15:53:13 Medication Orders doxycycli ne hyclate 100 mg tablet 2024 025 MICHAEL [facility]/Pharmacy #[id number], [address] [place], [address], 11/13/2024 05:01:36 budesonid e 0.5 mg/2 mL suspensio n for nebulizat ion 2024 [email or web address] [facility]/Pharmacy #[id number], [address] [place], [address], 11/13/2024 09:34:47 doxycycli ne hyclate [address] [facility]/Pharmacy #[id number], [address] [facility], [place], [address], 11/13/2024 05:01:36 Patient TargetsNo targets recorded. Patient InstructionsNo instructions recorded. Reason for Referral None Reported. Results Created Date Observation Date Name Description Value Unit Range Abnormal Flag Note LastModifiedBy Organization Detail LastModifiedTime 03/19/19 audio gram No observ ation record ed. BARCODE Not Available 2024 10:49:01 09/05/19 audio gram No observ ation record ed. BARCODE Not Available 2024 09:18:30 10/24/19 CT, sinus es, w/o contr ast No observ ation record ed. [email or web address] [facility] Of [address], [address], 10/23/2024 15:01:46 11/15/1910/23/2024 CT, sinus es, w/o contr ast No observ ation record ed. [email or web address] [facility] [address], [address], 11/25/2024 17:11:47 Result Notes None recorded. Problems Name Problem SNOMED Code Status Onset Date Resolution Date Notes Provider Name and Address Organization Details Recorded Time Sensorineur al hearing loss of bilateral ears 272019237 Active 2024 RUBINA KEARNEY [address], [address], [facility] - [facility] [place] 13:06:55 Disorder of left Eustachian tube 2183358789936 109 Active 2024 Wanda summers [place] - [facility] [place] 14:49:25 Dysfunction of right eustachian tube 5075353486338 101 Active 2024 Wanda summers [place] - [facility] [place] 14:49:39 Mixed conductive and sensorineur al hearing loss, bilateral 275970179 Active 2024 MICHAEL LARSEN [address] [facility], [facility], [place], [address], [facility] - [facility] [place] 15:23:21 Chronic bilateral maxillary sinusitis 9245504612395 9105 Active 2024 CELINA ALEJANDRE PA-C [address] [address], [place], [address], [facility] - [facility] [place] 15:58:38 Loss of sense of smell 17764829 Active 2024 LEATHA CARVAJAL MD [address] [address], [place], [address], 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 - [facility] [place] 15:36:39 Problem Notes None recorded. Procedures Surgical History Date Name Laterality Status Provider Name and Address Organization Details Recorded Time Cerumen removal without microscope bilat completed CRISTI MORA [address] [facility] [address], [place], [address], [facility] - [facility] [place] 10/23/2024 15:26:19 Comp Audio with Tymps - 90345 & 46177 completed MICHAEL LARSEN [address] [facility],[address] [address], [place], [address], [facility] - [facility] [place] 09/03/2024 15:23:09 Comp Audio with Tymps - 23334 & 46365 completed RUBINA KEARNEY, AUD [address] [facility] [address], [place], [address], [facility] - [facility] 03/18/2024 13:06:39 Imaging Results None recorded. Procedure Notes None recorded. Medical Equipment None Reported. Allergies No known drug allergies Medications Name Sig Start Date Stop Date Status Note LastModified by Organization Details LastModified Time carvedilol 6.25 mg tablet TAKE 1 TABLET BY MOUTH TWICE A DAY WITH FOOD FOR 90 DAYS active Not Available Not Available No t Available prednisone 10 mg tablet TAKE 1 TABLET BY MOUTH EVERY DAY active Not Available Not Available No t Available glipizide ER 5 mg tablet, extended release 24 hr TAKE 1 TABLET BY MOUTH EVERY DAY active Not Available Not Available No t Available atenolol 25 mg tablet TAKE 1 TABLET BY MOUTH EVERY DAY active Not Available Not Available No t Available ciprofloxac in 500 mg tablet TAKE 1 TABLET BY MOUTH TWICE A DAY FOR 7 DAYS active Not Available Not Available No t Available magnesium oxide 400 mg (241.3 mg magnesium) tablet TAKE 1 TABLET BY MOUTH EVERY DAY active Not Available Not Available No t Available amlodipine 10 mg tablet TAKE 1 TABLET BY MOUTH EVERY DAY active Not Available Not Available No t Available warfarin 5 mg tablet TAKE 1 TABLET BY MOUTH 1 TIME EACH DAY. active Not Available Not Available No t Available omeprazole 20 mg capsule,del ayed release TAKE 1 CAPSULE BY MOUTH EVERY DAY active Not Available Not Available No t Available budesonide 0.5 mg/2 mL suspension for nebulizatio n MIX 1 VIAL WITH NEILMED SINUS RINSE AND SALINE PACKET. HALF BOTTLE PER NOSTRIL. USE TWICE DAILY. 2024 active Not Available Not Available Not Avai lable folic acid 1 mg tablet TAKE 1 [...] No t Available warfarin 1 mg tablet TAKE 1 TABLET BY MOUTH DAILY WITH DINNER. active Not Available Not Available No t [...] Available Not Available No t Available doxycycline hyclate 100 mg tablet Take 1 tablet twice a day by oral route for 14 days. 11/13 completed Not Available Not Available Not Available loratadine 10 mg tablet TAKE 1 TABLET BY MOUTH EVERY DAY active Not Available Not Available No t Available enoxaparin 120 mg/0.8 mL subcutaneou s syringe INJECT 0.8 ML (120 MG TOTAL) UNDER THE SKIN EVERY 12 (TWELVE) HOURS. active Not Available Not Available No t Available ezetimibe 10 mg tablet TAKE 1 TABLET BY MOUTH EVERY DAY active Not Available Not Available No t Available ketorolac 0.4 % eye drops INSTILL 1 DROP IN OPERATIVE EYE TWICE A DAY ..START 2 DAYS BEFORE SURGERY 10/23 completed Not Available Not Available Not Available FreeStyle Lite Strips USE 1 STRIP TO TEST BLOOD 3 TIMES A DAY active Not Available Not Available No t Available melatonin 5 mg tablet TAKE 2 TABLETS BY MOUTH EVERY DAY active Not Available Not Available No t Available cholecalcif cesario (vitamin D3) 50 mcg (2,000 unit) tablet TAKE 1 TABLET (2,000 UNITS TOTAL) BY MOUTH ONCE DAILY active Not Available Not Available No t Available Anoro Ellipta 62.5 mcg-25 mcg/actuati on powder for inhalation INHALE 1 PUFF INTO LUNGS DAILY active Not Available Not Available No t Available Trulicity 1.5 mg/0.5 mL subcutaneou s pen injector INJECT 0.5 ML (1.5 MG TOTAL) UNDER THE SKIN EVERY 7 DAYS active Not Available Not Available No t Available Trulicity 0.75 mg/0.5 mL subcutaneou s pen injector INJECT 1 DOSE INTO THE SKIN ONCE A WEEK 10/23 completed Not Available Not Available Not Available Vitals Date Recorded Body height Body mass index (BMI) Body weight Provider Name and Address Organization Details Last Updated DateTime 03/18/2024 180.34 cm 34.6 kg/m2 097535.91 g Aminah Hsiehsukumar [place] - [facility] 03/18/2024 13:21:03 Date Recorded Body height Body mass index (BMI) Body weight Provider Name and Address Organization Details Last Updated DateTime 09/03/2024 180.34 cm 34.6 kg/m2 343700.91 g Debra Davila [place] - [facility] 09/03/2024 15:02:34 Date Recorded Body height Provider Name an d Address Organization Details Last Updated DateTime 10/30/2024 180.34 cm CINTHIA JOSH [place] - [facility] 10/30/2024 13:33:38 Social History Question Answer Notes LastModified by Organization D etails LastModified Time What Type Of Bottom Saw Operator Do You Use? None [email or web address] Information not available 10/23/2024 Do You Have Any Pets? Yes Information not available 10/23/2024 Are You Passively Exposed To Smoke? No [email or web address] Information no t available 10/23/2024 Are There Any Smokers In Your House? No [email or web address] Information not available 10/23/2024 Sex: Unknown Functional Status Question Answer Note LastModified by Organization Details LastModified Time What type of noise exposure are you exposed to? noExposureToExcessiveNoise [email or web address] Infor mation not available 10/23/2024 Mental Status None recorded. Family History Nothing Reported. Medical History No medical history recorded. Past Encounters Encounter ID Performer Location Encounter Start Date Encounter Closed Date Diagnosis/Indication Diagnosis SNOMED-CT Code Diagnosis ICD10 Code Diagnosis IMO Codes Diagnosis Note [id number] WANDA LUGO PA-C [facility] [address] [place] [address] 03/18/2024 12:24:16 03/18/2024 13:39:19 Sensorineural hearing loss of bilateral ears 252224685 H90.3 Audiologic al evaluation results:Ri ght ear:Normal sloping to mild sensorineu ral hearing loss with excellent word recognitio n.Left ear:Normal sloping to moderate sensorineu ral hearing loss with excellent word recognitio n.Tympanom etry:Right Ear:Type CLeft Ear:Could not maintain a hermetic seal Dysfunctio n of right eustachian tube 2681617635 692003 H69.91 [id number] CELINA ALEJANDRE PA-C [facility] [address] [address] 09/03/2024 14:48:53 09/03/2024 15:48:38 Mixed conductive and sensorineural hearing loss, bilateral 466881558 H90.6 [id number] Audiologic al evaluation results: 09/03/2024 Right ear: Borderline normal sloping to a moderate mixed hearing loss with good word recognitio n. Left ear: Mild sloping to moderately severe mixed hearing loss with good word recognitio n. Tympanomet ry: Right Ear:Could not maintain a hermetic seal Left Ear:Could not maintain a hermetic seal Chronic bi lateral maxillary sinusitis 9287429000 2266842 J32.0 82852713 Loss of se nse of smell 36040169 R43.0 37385 [id number] CELINA ALEJANDRE PA-C [facility] [address] [address] 10/23/2024 13:46:53 10/23/2024 15:53:13 Chronic pansinusitis 72997406 J32.4 2468 Nasal sinus osteoma 2323 53850 D16.4 60326 Long-term current use of anticoagulant 471338602 Z79.01 9153838 Polyp of n cam cavity and/or nasal sinus 629224859 J33.9 [id number] Chai Salomon DO [facility] [address] [address] 10/30/2024 13:26:51 10/30/2024 14:18:23 Chronic pansinusitis 25945018 J32.4 2468 Nasal sinus osteoma 2323 27133 D16.4 00058 Long-term current use of anticoagulant 256309354 Z79.01 3226779 Polyp of n cam cavity and/or nasal sinus 257116982 J33.9 37347 Health Concerns Section Related Observation LastModified by Organization Detai ls LastModified Time None Recorded Concern Status LastModified by Organization Details LastModified Time None Recorded Advance Directives Directive None Recorded Payers Insurance Date Sequence Insurance Name Policy Number Policy Bone Covered Member ID Bone Member ID Guarantor Name 12/11/2024 1 [facility] - DOS ON OR AFTER 2022 - ONE CARE (MEDICARE REPLACEMENT/AD VANTAGE - HMO) Maycol Leonila [id number] Maycol Leonila 12/11/2024 2 [place] [facility] Maycol Leonila [id number] Maycol Leonila Notes Date Note Type Note Provider Name and Address Organization Details Recorded Time 03/18/2024 text/html ROS as noted in the [facility] 74 year old male presents with spouse for evaluation of ears and hearing. Feels the hearing is good. Had some tinnitus and diminished hearing loss a few months ago, during a sinus infection. Tinnitus went away and hearing came back to normal after a course of penicillin. No vertigo. 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 No history of recurrent otitis or otologic surgeries. No history of otalgia nor otorrhea. Wanda summers [place] - [facility] 03/18/2024 14:50:44 09/03/2024 text/html ROS as noted in the [facility] 74-year-old male presents for reevaluation of asymmetric sensorineural hearing loss, left greater than right. Patient states that he is hearing seems stable and he is here today for updated testing. Recently was treated for a lung infection with ciprofloxacin. Currently has symptoms of a sinus infection with pressure across his cheekbones and nasal congestion. Notices decline in smell but no decline in taste. Present since early July. LEATHA CARVAJAL MD [address] [place] [address], [address], [place] - [facility] 09/09/2024 07:47:29 10/23/2024 text/html ROS as noted in the [facility] 74-year-old male presents for reevaluation of chronic sinus infection and anosmia. Previously prescribed doxycycline for sinus infection and chronic ETD with fluid in bilateral middle ear space. The antibiotic helped with middle ear effusions but did not completely resolve sinus symptoms. He is here today for sinus CT. CELINA ALEJANDRE PA-C [address] [facility],[address], [address], [facility] - [facility] 10/23/2024 15:38:30 10/30/2024 text/html ROS as noted in the [facility] 74-year-old male presents for revaluation of chronic sinus infection and anosmia. He has history of CRSwNP and has been on multiple therapies in the past including budesonide rinses, fluticasone nasal spray, azelastine. He has history of allergic rhinitis and is undergoing plan for RAST testing. He has previously been on multiple rounds of antibiotics and steroids He feels significantly better on budesonide rinses. He is exctatic about it. Improved cough and drainage since starting. . 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 Previously seen by Celina earlier this month for the above symptoms she did start an immunologic workup at the last visit and put an order for RAST testing as well. Chai Salomon, [address] [facility],[address], [address], [facility] - [facility] 10/30/2024 14:14:58
--- OUTSIDE RECORDS SUMMARY | 2025-01-13 16:06 | XMS_ITS | Encounter Summary ---
Author Organization [facility] Address [address] [place] [phone] Phone Care Team Providers Care Canteen Manager Name Role Phone Unavailable Primary Care Provider Unavailabl e Encounter Details Date Type Department Care Team (Late st Contact Info) Description 01/09/2025 Orders Only [facility] [address] [address] Betito Fisher MD [address] [address] Social History Tobacco Use Types Packs/Day Years Used Date Smoking Tobacco: Never Assessed Sex and Gender Information Value Date Recorded Sex Assigned at Not on file Legal Sex Male 4:51 PM EST Gender Identity Not on file Sexual Orientation Not on file documented as of this encounter Plan of Treatment Not on file documented as of this encounter Procedures Procedure Name Priority Date/Time Associated Diagnosis Comments URINE ALBUMIN / CREATININE RATIO Routine 01/09/2025 2:28 PM EDT VITAMIN D 25 HYDROXY Routine 01/09/2025 1:17 PM EDT PTH, INTACT Routine 01/09/2025 1:17 PM EDT BASIC METABOLIC PANEL Routine 01/09/2025 1:17 PM EDT documented in this encounter Results * Urine Albumin / Creatinine Ratio (01/09/2025 2:28 PM EDT) Creatinine, Urine 106.0 mg/dL [facility] Microalbumin Urine Random 20.8 0.0 - 29.0 mg/L [facility] Microalbumin/Crea tinine Ratio 20 <30 mg/g creat [facility] 01/09/2025 2:28 PM EDT 01/09/2025 4:34 PM EDT us Betito Fisher MD LAB URINE ORDERABLES Final Resul t Performing Organization Address City/[facility] [address]/[facility] Co de Phone Number [facility] [address] [place] [address] * PTH, Intact (01/09/2025 1:17 PM EDT) PTH 32.7 18.5 - 88.0 pcg/mL [facility] 01/09/2025 1:17 PM EDT 01/09/2025 4:35 PM EDT us Betito Fisher MD LAB BLOOD ORDERABLES Final Resul t Performing Organization Address [facility] de Phone Number [facility] [address] [place] [address] * Vitamin D 25 Hydroxy (01/09/2025 1:17 PM EDT) Vitamin D, 25-OH, Total 57.0 30.0 - 80.0 ng/mL [facility] 01/09/2025 1:17 PM EDT 01/09/2025 4:35 PM EDT us Betito Fisher MD LAB BLOOD ORDERABLES Final Resul t Performing Organization Address [facility] [address]/[facility] Co de Phone Number [facility] [address] [place] [address] * (ABNORMAL) Basic Metabolic Panel (01/09/2025 1:17 PM EDT) Sodium 137 133 - 145 mmol/L [facility] Potassium 4.5 3.5 - 5.5 mmol/L [facility] Chloride 103 96 - 110 mmol/L [facility] Bicarbonate (CO2) 27 21 - 32 mmol/L [facility] Anion Gap 7 3 - 11 [facility] Glucose 157(H) 70 - 100 mg/dL [facility] BUN 19 5 - 25 mg/dL [facility] Creatinine Serum 1.45(H) 0.70 - 1.30 mg/dL [facility] eGFR 51(L) >=60 mL/min/1. 73m2 [facility] Comment:Calculation based on the Chronic Kidney Disease Epidemiology Collaboration (CKD-EPI) equation refit without adjustment for race. BUN/Creatinine Ratio 13.1 [facility] Calcium 9.1 8.5 - 10.5 mg/dL [facility] 01/09/2025 1:17 PM EDT 01/09/2025 4:35 PM EDT us Betito Fisher MD LAB BLOOD ORDERABLES Final Resul t ROMELIA [facility] [address] [place] [address] documented in this encounter Visit Diagnoses Not on filedocumented in this encounter
--- OUTSIDE RECORDS SUMMARY | 2025-01-13 16:06 | XMS_ITS | Encounter Summary ---
Author Organization [facility] Address [address] [place] [address] Care Team Providers Care Lead Cashier Name Role Phone Randa Yip MD Primary Care Provider [phone] Encounter Details Date Type Department Care Team ([facility] Contact Info) Description 01/10/2025 Results Follow-Up Internal Medicine - [place] [address] [facility] [address] [place] [phone] Randa Yip MD [address] [place] [phone] Social History Tobacco Use Types Packs/Day Years [...] Info) Description 01/14/2025 2:30 PM EST Appointment [facility] Radiation Oncology [address] [place] [phone] Ni Mccrary NP [address] [place], [place] [phone] 01/22/2025 2:15 PM EST Office Visit Orthopedic Surgery - [place] [address] [facility] [address] [place] [phone] Reynaldo Stone DPM [address] [place] [address] 03/26/2025 2:00 PM EST Telemedicine Internal Medicine [facility] [address] [phone] Randa Yip MD [address] [place] [phone] 05/28/2025 11:15 AM EDT Office Visit [facility] Hematology Oncology [address] [place] [phone] Sayda-Edmund Gordon MD [address] [place] [phone] 01/06/2026 12:45 PM EDT Office Visit [facility]rology [facility] [address] [place] [phone] Betito Fisher MD [address] [phone] documented as of this encounter Visit Diagnoses Not on filedocumented in this encounter Additional Health Concerns Assessment Noted Time PHQ-9 Depression Total Score: 0 03/25/19 25 3:34 PM EST documented as of this encounter Care Teams Lead Cashier Relationship Specialty Start Date End Date Randa Yip MD [address] [phone] PCP - General Internal Medicine 02/16/24 documented as of this encounter
[2025-01-13 20:53] VITALS: PULSE 89; O2SAT 88
== END 2025-01-13 13:39 | disposition home or self-care (01) ==
LOC: HO.HPS 12:44
PROVIDERS: PCP Internal Medicine; Visit Provider Hospitalist
DX: J96.11 Chronic respiratory failure with hypoxia (principal); D68.61 Antiphospholipid syndrome; G47.33 Obstructive sleep apnea (adult) (pediatric); Z99.89 Dependence on other enabling machines and devices; J41.0 Simple chronic bronchitis; J98.4 Other disorders of lung; R91.1 Solitary pulmonary nodule; J01.90 Acute sinusitis, unspecified; C34.32 Malignant neoplasm of lower lobe, left bronchus or lung
CPT/HCPCS: 94618; 99215; G2211

== ENCOUNTER → 2025-01-13 12:44 | Outpatient (BNVA) | payer OTHER, SELFPAY | PROVIDERS: PCP Internal Medicine; Visit Provider Hospitalist | DX: J96.11 Chronic respiratory failure with hypoxia (principal); J41.0 Simple chronic bronchitis; J98.4 Other disorders of lung; R91.1 Solitary pulmonary nodule; J01.90 Acute sinusitis, unspecified; D68.61 Antiphospholipid syndrome; C34.32 Malignant neoplasm of lower lobe, left bronchus or lung; G47.33 Obstructive sleep apnea (adult) (pediatric); Z99.89 Dependence on other enabling machines and devices; Z79.01 Long term (current) use of anticoagulants | CPT/HCPCS: 94618; 99212 ==